=== PATIENT | male | born 1950 | race Caucasian/White ===

== ENCOUNTER → 2016-06-29 | Outpatient (CLI) | payer OTHER ==
[~2016-06-29] MED LIST: SIMV20TA2 PO
[2016-06-29 17:46] LABS: GLUCOSE,FASTING 83 mg/dl (70-99)
[2016-06-29 17:53] LABS: CHOLESTEROL 161 mg/dl (0-200); CHOLESTEROL/HDL RATIO 4.4; HDL CHOLESTEROL 37 mg/dl; LDL CHOLESTEROL CALCULATED 99 mg/dl; PROSTATE SPECIFIC ANTIGEN < 0.010 ng/ml (0.000-4.000); TRIGLYCERIDES 124 mg/dl (0-150); VERY LOW DENSITY LIPOPROT CALC 25 mg/dl
== END | disposition home or self-care (01) ==
LOC: C.LABPVFM 15:48
PROVIDERS: ATTEND Family Medicine
DX: E78.2 Mixed hyperlipidemia (principal); C61 Malignant neoplasm of prostate

== ENCOUNTER → 2017-11-08 | Outpatient (CLI) | payer OTHER ==
[2017-11-08 17:39] LABS: BLOOD UREA NITROGEN 14 mg/dl (7-18); CALCIUM 8.4 mg/dl (8.5-10.1); CARBON DIOXIDE 25 mmol/L (21-32); CHOLESTEROL 122 mg/dl (0-200); CREATININE 0.98 mg/dl (0.60-1.40); GLUCOSE 76 mg/dl (70-99); LDL CHOLESTEROL CALCULATED 66 mg/dl; POTASSIUM 3.9 mmol/L (3.5-5.1); SODIUM 137 mmol/L (136-145)
== END | disposition home or self-care (01) ==
LOC: C.LABPVFM 16:10
PROVIDERS: ATTEND Nurse Practitioner
DX: E78.2 Mixed hyperlipidemia (principal); C61 Malignant neoplasm of prostate

== ENCOUNTER 2024-05-29 11:13 | Inpatient (IN) ==
--- NOTE | 2024-05-29 11:22 | Emergency Department Note ---
Impression & Plan Pneumonia, Interstitial lung disease, Hypoxia, Hypomagnesemia, Influenza A ED Provider Note NAME: YASMANY GONZÁLES AGE: 73 SEX: M : 1950 ARRIVES VIA: Ambulance INFORMANT: Patient, EMS ED PROVIDER(S): Héctor Palma DO CHIEF COMPLAINT: Shortness of breath HPI: The patient is a 73-year-old male who presented to the emergency department for an evaluation of shortness of breath. The patient's been experiencing shortness of breath over the course of the last couple days. He has had a cough. He does have a history of underlying interstitial lung disease but also has a history of heart issues. The patient's had a low-grade fever. The patient did not take any Tylenol. The patient arrived via ambulance. He was noted to be hypoxic. He was placed on a nonrebreather mask. The patient normally wears 3 L of oxygen at home but today has titrated himself up to 7 L. ROS: See above HPI for pertinent positives & negatives. A total of 10 systems reviewed and were otherwise negative. PAST MEDICAL HISTORY: See Below PAST SURGICAL HISTORY: See Below FAMILY HISTORY: See Below SOCIAL HISTORY: See Below HOME MEDICATIONS: See Below ALLERGIES: See Below VITALS: See Below PHYSICAL EXAMINATION: GENERAL: The patient is awake and alert. He is mildly anxious. EYES: The conjunctivae are clear. The pupils are round and reactive. EARS, NOSE, MOUTH AND THROAT: The nose is without any evidence of any deformity. NECK: The neck is nontender and supple. RESPIRATORY: Tachypnea and conversational dyspnea was noted. Diminished breath sounds are noted throughout with faint rales in all lung suárez. CARDIOVASCULAR: Regular rate and rhythm was noted to auscultation. Systolic murmur suggested. GASTROINTESTINAL: The abdomen is soft. Abdomen is nontender. MUSCULOSKELETAL/EXTREMITIES: There is no evidence of gross deformity full range of motion is noted in the hips and shoulders. SKIN: There is no obvious evidence of any rash. There are no petechiae, pallor or cyanosis noted. NEUROLOGIC: Patient is awake alert and oriented x3 MEDICAL DECISION MAKING: The patient is a 73-year-old male who presented to the emergency department for an evaluation of difficulty breathing. The patient has a history of interstitial lung disease. He started getting worse over the course of the last 24 hours. The patient arrived at the emergency department with an increased oxygen requirement. He was found to have signs of pneumonia on chest x-ray. He was placed on escalating amounts of supplemental oxygen. Ultimately he was placed on BiPAP. He was not retaining CO2 and his oxygen saturations were followed. I discussed the patient's laboratory and radiographic studies with him. He was treated with IV antibiotics in emergency department. [facility] agreed to evaluate the patient in the emergency department for further management and disposition. Triage Nursing notes reviewed. Prior medical records reviewed Vital Signs: reviewed and remarkable for fever and tachypnea. The patient was also hypoxic. Differential diagnosis: Reactive airway disease, pneumonia, pneumothorax, COPD, CHF, infections, cardiac ischemia, pulmonary embolism, musculoskeletal, gastrointestinal, as well as other pathologies. ER treatment provided: See below Diagnostics interpreted by me: ECG: EKG was obtained in the emergency department. My interpretation is normal sinus rhythm at 84 bpm. There was no ectopy. There is no acute ST segment abnormalities noted. LVH was suggested by voltage criteria. Cardiac Monitoring: An order was placed for continuous cardiac monitoring. The monitor shows a rate of 87 bpm with sinus rhythm. Laboratory studies: As stated above and show below. Imaging studies: See below. Radiographic imaging was reviewed by myself Consultation(s): I discussed this case with Dr. Almanza who is on-call for the [facility]. ED COURSE: Procedures: none Critical Care: I have personally spent greater than 45 minutes of critical care time in the direct management of this patient. This includes bedside care, interpretation of diagnostic studies, and testing, discussion with consultants, patient, and family members, and other required patient management activities. This 45 minutes is in excess of all separately billable procedures. Past Med/Surg History Problem List (Updated 05/29/24 @ 18:18 by Héctor Palma DO) Influenza A (Acute) Acute on chronic hypoxic respiratory failure Influenza A Hypomagnesemia (Acute) Hypoxia (Acute) Pneumonia (Acute) Heart enlargement Weight loss, non-intentional Poor appetite Thrush, oral Muscle cramping Colon cancer screening Hyperlipidemia (Chronic) Interstitial lung disease (Chronic) Dry cough Numbness of toes Post-nasal drip Chronic cough GERD (gastroesophageal reflux disease) History of prostate cancer 2006 > just surgery Allergic rhinitis (Chronic) Reactive airway disease (Acute) uses one puff in am, but reports "I don't really need to" Medical History Kidney stones passed on own Hyperlipidemia Benign neoplasm of colon History of Lyme disease 2005 > resolved 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 History of cellulitis Asbestos exposure several yrs ago Hernia pt unaware GERD (gastroesophageal reflux disease) now off PPI Surgical History History of colonoscopy 2012 History of tooth extraction H/O prostatectomy 05/2006 Family History Grandmother Diabetes Brother Diabetes Hypertension Rectal cancer Heart disease Sister Diabetes Hypertension Cancer Father Myocardial infarction Heart disease Family/Other Lung disease Other No family history of adverse response to anesthesia No family history of bleeding disorder Denies family history of Ovarian cancer Prostate cancer Breast cancer Colorectal cancer Stroke Social History Smoking Status: Never smoker Cigarettes Per Day: only smoked once in awhile for a couple years; Second Hand Exposure: No; Do You Dip or Chew Tobacco: No; Hx Alcohol Use: No Hx Substance Use: No Preferred Language: Frisian Communication Ability: Effective Hearing Ability: Normal Bin Piler Required: No Beliefs That Will Affect Care: None marital status: Current Living Situation: Spouse current occupational status: retired current occupation: Sales How many Children do You have: 2 Other Information That Helps Us Care for You: No Feels Safe at Home: Yes Safety Concerns: Feels Safe At This Time Childhood Exposure to Second-Hand Smoke: No Diet: regular caffeine: Yes (coffee) Dental Care, Regularly: No Physical Activity Frequency: Daily Seatbelt Use: always Sunscreen Use: No Assistive Devices: Glasses and Oxygen - Continuous Allergies Allergies Allergy/AdvReac Type Severity Reaction Status Date / Time No Known Drug Allergies Allergy Verified 01/14/24 08:20 Home Meds Home Medications Medication Instructions Recorded Confirmed omega-3 fatty acids 1,000 mg 1,000 mg PO QAM 11/11/20 05/29/24 capsule (Fish Oil Concentrate) aspirin 81 mg tablet,delayed 81 mg PO QAM 01/29/22 05/29/24 release (Adult Low Dose Aspirin) cholecalciferol (vitamin D3) 50 50 mcg PO QAM 01/29/22 05/29/24 mcg (2,000 unit) capsule fexofenadine 180 mg tablet 180 mg PO QAM 08/21/22 05/29/24 ([facility]) Oxygen Home 07/13/23 01/14/24 fluticasone fur. 100 mcg-umeclid 1 inh inhalation UD 07/13/23 05/29/24 62.5 mcg-vilant 25 mcg inhalat.powder (Trelegy Ellipta) albuterol sulfate 0.63 mg/3 mL 0.63 mg inhalation Q6H PRN sob 01/14/24 05/29/24 solution for nebulization ipratropium bromide 0.02 % 2.5 ml inhalation Q6H PRN sob 01/14/24 05/29/24 solution for inhalation azelastine 137 mcg (0.1 %) nasal 1 spray intranasal DIRECTED 05/29/24 05/29/24 spray bosentan 62.5 mg tablet 62.5 mg PO BID 05/29/24 05/29/24 fluconazole 150 mg tablet 150 mg PO UD 05/29/24 05/29/24 pirfenidone 267 mg capsule 534 mg PO TID 05/29/24 05/29/24 Previous Rx's Medication Instructions Recorded pantoprazole 40 mg tablet,delayed 40 mg PO BID #180 tabs 07/13/23 release fluticasone propionate 50 1 spray intranasal BID #48 grams 08/17/23 mcg/actuation nasal spray,suspension albuterol sulfate 90 mcg/actuation 2 puff inhalation QID PRN 12/10/23 aerosol inhaler shortness of breath or wheezing or cough #3 Inhalers atorvastatin 40 mg tablet 40 mg PO QAM #90 tabs 04/20/24 Results & Data (ED) Vital Signs Vital Signs - 24 hr 05/29/24 11:20 05/29/24 11:20 05/29/24 11:20 Temperature Temperature Source Pulse Rate Pulse Rate [Apical] Pulse Rate from SpO2 Sensor Pulse Rhythm Pulse Strength Respiratory Rate Respiratory Effort / Characteristics Respiratory Pattern Blood Pressure 126/79 126/79 126/79 Blood Pressure Mean 88 88 88 Blood Pressure Position Pulse Oximetry Oxygen Delivery Method Oxygen Flow Rate Fraction of Inspired Oxygen Sepsis Recent Fever Within 48 Hours Sepsis New/Unexplained Change in Mental Status Sepsis Action Taken by Nursing Oxygen Flow Rate - Titration Pulse Oximetry Post Tiitration 05/29/24 11:20 05/29/24 11:20 05/29/24 11:20 Temperature Temperature Source Pulse Rate Pulse Rate [Apical] Pulse Rate from SpO2 Sensor Pulse Rhythm Pulse Strength Respiratory Rate Respiratory Effort / Characteristics Respiratory Pattern Blood Pressure 126/79 126/79 126/79 Blood Pressure Mean 88 88 88 Blood Pressure Position Pulse Oximetry Oxygen Delivery Method Oxygen Flow Rate Fraction of Inspired Oxygen Sepsis Recent Fever Within 48 Hours Sepsis New/Unexplained Change in Mental Status Sepsis Action Taken by Nursing Oxygen Flow Rate - Titration Pulse Oximetry Post Tiitration 05/29/24 11:20 05/29/24 11:20 05/29/24 11:22 Temperature 37.4 C Temperature Source Oral Pulse Rate 79 Pulse Rate [Apical] Pulse Rate from SpO2 Sensor Pulse Rhythm Regular Pulse Strength Normal Respiratory Rate 48 H Respiratory Effort / Characteristics Labored Respiratory Pattern Regular Tachypnea Blood Pressure 126/79 126/79 126/79 Blood Pressure Mean 88 88 94 Blood Pressure Position Sitting Pulse Oximetry 91 Oxygen Delivery Method [place] Oxygen Flow Rate 10 Fraction of Inspired Oxygen Sepsis Recent Fever Within 48 Hours No Sepsis New/Unexplained Change in Mental Status No Sepsis Action Taken by Nursing No Action Required Oxygen Flow Rate - Titration Pulse Oximetry Post Tiitration 05/29/24 11:28 05/29/24 11:40 05/29/24 11:45 Temperature Temperature Source Pulse Rate Pulse Rate [Apical] Pulse Rate from SpO2 Sensor Pulse Rhythm Pulse Strength Respiratory Rate Respiratory Effort / Characteristics Respiratory Pattern Blood Pressure Blood Pressure Mean Blood Pressure Position Pulse Oximetry 92 82 L 88 L Oxygen Delivery Method [place] Oxygen Flow Rate 11 10 12 Fraction of Inspired Oxygen Sepsis Recent Fever Within 48 Hours Sepsis New/Unexplained Change in Mental Status Sepsis Action Taken by Nursing Oxygen Flow Rate - Titration 12 15 Pulse Oximetry Post Tiitration 86 L 92 05/29/24 11:48 05/29/24 11:48 05/29/24 11:59 Temperature Temperature Source Pulse Rate 82 95 H Pulse Rate [Apical] Pulse Rate from SpO2 Sensor 82 Pulse Rhythm Pulse Strength Respiratory Rate 41 H Respiratory Effort / Characteristics Accessory Muscle Use Labored Short of Breath Tripoding Respiratory Pattern Rapid/Deep Rapid/Shallow Blood Pressure Blood Pressure Mean Blood Pressure Position Pulse Oximetry 95 Oxygen Delivery Method Non-rebreather Oxygen Flow Rate 15 Fraction of Inspired Oxygen Sepsis Recent Fever Within 48 Hours Sepsis New/Unexplained Change in Mental Status Sepsis Action Taken by Nursing Oxygen Flow Rate - Titration Pulse Oximetry Post Tiitration 05/29/24 12:01 05/29/24 12:01 05/29/24 12:01 Temperature Temperature Source Pulse Rate Pulse Rate [Apical] Pulse Rate from SpO2 Sensor Pulse Rhythm Pulse Strength Respiratory Rate Respiratory Effort / Characteristics Respiratory Pattern Blood Pressure 122/73 122/73 122/73 Blood Pressure Mean 96 96 96 Blood Pressure Position Pulse Oximetry Oxygen Delivery Method Oxygen Flow Rate Fraction of Inspired Oxygen Sepsis Recent Fever Within 48 Hours Sepsis New/Unexplained Change in Mental Status Sepsis Action Taken by Nursing Oxygen Flow Rate - Titration Pulse Oximetry Post Tiitration 05/29/24 12:01 05/29/24 12:06 05/29/24 12:06 Temperature Temperature Source Pulse Rate 80 80 Pulse Rate [Apical] Pulse Rate from SpO2 Sensor 79 Pulse Rhythm Pulse Strength Respiratory Rate 40 H 34 H Respiratory Effort / Characteristics Spontaneous Accessory Muscle Use Labored Respiratory Pattern Tachypnea Blood Pressure 122/73 Blood Pressure Mean 96 Blood Pressure Position Pulse Oximetry 97 96 Oxygen Delivery Method Oxygen Flow Rate Fraction of Inspired Oxygen 60 Sepsis Recent Fever Within 48 Hours Sepsis New/Unexplained Change in Mental Status Sepsis Action Taken by Nursing Oxygen Flow Rate - Titration Pulse Oximetry Post Tiitration 05/29/24 12:11 05/29/24 12:14 05/29/24 12:22 Temperature Temperature Source Pulse Rate 99 H Pulse Rate [Apical] 79 Pulse Rate from SpO2 Sensor Pulse Rhythm Pulse Strength Respiratory Rate 33 H 40 H Respiratory Effort / Characteristics Spontaneous Labored Short of Breath Respiratory Pattern Blood Pressure Blood Pressure Mean Blood Pressure Position Pulse Oximetry 97 99 Oxygen Delivery Method BiPAP BiPAP BiPAP Oxygen Flow Rate Fraction of Inspired Oxygen 60 Sepsis Recent Fever Within 48 Hours Sepsis New/Unexplained Change in Mental Status Sepsis Action Taken by Nursing Oxygen Flow Rate - Titration Pulse Oximetry Post Tiitration 96 05/29/24 12:30 05/29/24 12:30 05/29/24 13:06 Temperature Temperature Source Pulse Rate 87 88 99 H Pulse Rate [Apical] Pulse Rate from SpO2 Sensor 99 H Pulse Rhythm Pulse Strength Respiratory Rate 44 H 37 H 37 H Respiratory Effort / Characteristics Respiratory Pattern Blood Pressure 116/66 116/66 111/67 Blood Pressure Mean 75 75 81 Blood Pressure Position Pulse Oximetry 98 98 98 Oxygen Delivery Method BiPAP BiPAP Oxygen Flow Rate Fraction of Inspired Oxygen Sepsis Recent Fever Within 48 Hours Sepsis New/Unexplained Change in Mental Status Sepsis Action Taken by Nursing Oxygen Flow Rate - Titration Pulse Oximetry Post Tiitration 05/29/24 13:30 05/29/24 14:00 05/29/24 14:00 Temperature Temperature Source Pulse Rate 103 H 97 H 96 H Pulse Rate [Apical] Pulse Rate from SpO2 Sensor 102 H 97 H Pulse Rhythm Pulse Strength Respiratory Rate 28 H 41 H 38 H Respiratory Effort / Characteristics Respiratory Pattern Blood Pressure 106/67 102/67 102/67 Blood Pressure Mean 80 78 71 Blood Pressure Position Pulse Oximetry 96 93 97 Oxygen Delivery Method BiPAP BiPAP Oxygen Flow Rate Fraction of Inspired Oxygen Sepsis Recent Fever Within 48 Hours Sepsis New/Unexplained Change in Mental Status Sepsis Action Taken by Nursing Oxygen Flow Rate - Titration Pulse Oximetry Post Tiitration 05/29/24 14:27 Temperature Temperature Source Pulse Rate 94 H Pulse Rate [Apical] Pulse Rate from SpO2 Sensor 94 H Pulse Rhythm Pulse Strength Respiratory Rate 34 H Respiratory Effort / Characteristics Respiratory Pattern Blood Pressure 101/70 Blood Pressure Mean 80 Blood Pressure Position Pulse Oximetry 97 Oxygen Delivery Method BiPAP Oxygen Flow Rate Fraction of Inspired Oxygen Sepsis Recent Fever Within 48 Hours Sepsis New/Unexplained Change in Mental Status Sepsis Action Taken by Nursing Oxygen Flow Rate - Titration Pulse Oximetry Post Tiitration Home Medications Current Medication List: was personally reviewed by me Laboratory Data Attestation: I reviewed the patient's lab results. 05/29/24 11:30 05/29/24 11:30 Lab Results 05/29/24 05/29/24 05/29/24 Range/Units 11:30 11:34 14:25 WBC 7.96 (4.8-10.8) K/ul RBC 4.01 L (4.70-6.10) M/uL Hgb 11.9 L (14.0-18.0) g/dl Hct 36.5 L (42.0-52.0) % MCV 91.0 (80.0-100.0) fL MCH 29.7 (25.0-34.0) pg MCHC 32.6 (32.0-36.0) g/dL RDW Std Deviation 52.4 H (36.4-46.3) fL RDW Coeff of Matilde 15.8 H (11.5-14.5) % Plt Count 173 (130-400) K/uL MPV 10.6 (9.4-12.4) fL Immature Gran % (Auto) 0.5 % Neut % (Auto) 69.7 % Lymph % (Auto) 13.8 % [place] % (Auto) 11.8 % Eos % (Auto) 3.6 % Baso % (Auto) 0.6 % Neut # (Auto) 5.54 (1.40-6.50) K/uL Lymph # (Auto) 1.10 L (1.20-3.40) K/uL [place] # (Auto) 0.94 H (0.11-0.59) K/uL Eos # (Auto) 0.29 (0.00-0.50) K/uL Baso # (Auto) 0.05 (0.00-0.20) K/uL Immature Gran # (Auto) 0.04 (0.01-0.20) K/uL PT 12.1 H (9.0-12.0) Seconds INR 1.1 (0.9-1.1) APTT 29 (21-31) Seconds PTT Ratio 1.1 VBG pH 7.43 H 7.47 H (7.36-7.41) VBG pCO2 43 34 L (38-50) mmHg VBG pO2 27 91 mmHg VBG HCO3 29 25 mmol/L VBG O2 Saturation < 60.0 97.6 % VBG Base Excess 3.7 1.4 mEq/L Sodium 132 L (136-145) mmol/L Potassium 3.9 (3.5-5.1) mmol/L Chloride 100 (98-107) mmol/L Carbon Dioxide 28 (21-32) mmol/L Anion Gap 4 (3-11) BUN 14 (6-23) mg/dl Creatinine 0.77 (0.6-1.4) mg/dl Est Cr Clr Drug Dosing 91.2 ml/min eGFR 94.53 BUN/Creatinine Ratio 18.2 (10-20) Glucose 103 H (70-99(Fasting)) mg/dl Lactate 1.1 (0.4-2.0) mmol/L Calcium 9.0 (8.6-10.3) mg/dl Magnesium 1.6 L (1.7-2.4) mg/dl Total Bilirubin 0.4 (0.2-1.0) mg/dl Direct Bilirubin 0.1 (0-0.2) mg/dl AST 25 (13-39) U/L ALT 8 (7-52) U/L Alkaline Phosphatase 67 (34-104) U/L Troponin I High Sens 6.6 (0-20) pg/ml B-Natriuretic Peptide 70 (0-100) pg/ml Total Protein 8.3 (6.0-8.3) gm/dl Albumin 3.6 (3.4-5.0) gm/dl Procalcitonin < 0.02 (0-0.5) ng/ml Nasal Influ A H1 2008 PCR DETECTED A (NotDetected) Adenovirus (PCR) Not Detected (NotDetected) B. pertussis DNA (PCR) Not Detected (NotDetected) B.parapertussis DNA PCR Not Detected (NotDetected) C. pneumoniae DNA (PCR) Not Detected (NotDetected) Coronavirus OC43 (PCR) Not Detected (NotDetected) Coronavirus HKU1 (PCR) Not Detected (NotDetected) Coronavirus 229E (PCR) Not Detected (NotDetected) SARS-CoV-2 (PCR) Not Detected (NotDetected) Coronavirus NL63 (PCR) Not Detected (NotDetected) Human Metapneumovir PCR Not Detected (NotDetected) Influenza Type B (PCR) Not Detected (NotDetected) M. pneumoniae (PCR) Not Detected (NotDetected) Parainfluenza 1 (PCR) Not Detected (NotDetected) Parainfluenza 2 (PCR) Not Detected (NotDetected) Parainfluenza 3 (PCR) Not Detected (NotDetected) Parainfluenza 4 (PCR) Not Detected (NotDetected) RSV (PCR) Not Detected (NotDetected) Entero/Rhino (PCR) Not Detected (NotDetected) Administered Medications Azithromycin (Zithromax) 500 mg in 255 mls @ 127.5 mls/hr IV NOW STA Stop: 05/29/24 18:49 Last Admin: 05/29/24 17:30 Dose: 127.5 mls/hr Documented By: CB Cefepime HCl (Maxipime 2000mg) 2,000 mg in 20 mls @ 5 mls/min IV Q8H DYLLAN Stop: 06/03/24 17:29 Last Admin: 05/29/24 17:31 Dose: 5 mls/min Documented By: CB Miscellaneous (Order Awaiting Action ~ Pirfenidone) 1 each N/A QS DYLLAN Stop: 06/28/24 16:29 Last Admin: 05/29/24 17:30 Dose: Not Given Documented By: CB Miscellaneous (Order Awaiting Action ~ Bosentan) 1 each N/A QS DYLLAN Stop: 06/28/24 16:29 Last Admin: 05/29/24 17:30 Dose: Not Given Documented By: CB Discontinued Medications Albuterol (Albut/Ipratrop 3mg/0.5mg Neb 3 Ml Vial) 3 ml NEB NOW STA; Protocol Stop: 05/29/24 11:20 Last Admin: 05/29/24 11:25 Dose: 3 ml Documented By: QGV Albuterol (Albut/Ipratrop 3mg/0.5mg Neb 3 Ml Vial) 12 ml NEB ONE ONE; Protocol Stop: 05/29/24 11:52 Last Admin: 05/29/24 12:10 Dose: 12 ml Documented By: BARON Dexamethasone Sodium Phosphate (DexamethasonePf 10 Mg/Ml Vial) 10 mg IV NOW ONE Stop: 05/29/24 11:52 Last Admin: 05/29/24 11:57 Dose: 10 mg Documented By: CATALINO Piperacillin Sod/Tazobactam Sod (Zosyn) 4.5 gm in 100 mls @ 200 mls/hr IV NOW ONE; Protocol Stop: 05/29/24 12:20 Last Infusion: 05/29/24 12:30 Dose: Infused Documented By: Admin: 05/29/24 11:57 Dose: 200 mls/hr Documented By: CATALINO Magnesium Sulfate/Dextrose (Magnesium Sulfate / D5w) 1 gm in 100 mls @ 100 mls/hr IV NOW STA Stop: 05/29/24 13:45 Last Infusion: 05/29/24 14:10 Dose: Infused Documented By: Admin: 05/29/24 13:05 Dose: 100 mls/hr Documented By: CATALINO Vancomycin HCl 2,250 mg/ (Sodium Chloride) 545 mls @ 200 mls/hr IV NOW ONE Stop: 05/29/24 17:13 Last Admin: 05/29/24 16:04 Dose: 200 mls/hr Documented By: GLORIA Midazolam HCl (Midazolam Hcl 1 Mg/Ml 2ml Vial) 1 mg IM NOW STA Stop: 05/29/24 12:53 Last Admin: 05/29/24 12:58 Dose: 1 mg Documented By: CATALINO Oseltamivir Phosphate (Oseltamivir Phosphate 75 Mg Cap) 75 mg PO NOW STA Stop: 05/29/24 13:32 Last Admin: 05/29/24 15:20 Dose: Not Given Documented By: ES Imaging Data Attestation: I personally reviewed and interpreted this imaging study as follows: My Impression: 1 view chest x-ray was obtained in the emergency department. My interpretation is interstitial lung disease noted with left-sided infiltrate, final report below. Radiologist's Impression: Chest X-Ray 05/29/24 11:19 XR chest 1V portable CLINICAL HISTORY: Sepsis COMPARISON STUDY: 06/26/2022 FINDINGS: There is stable cardiomegaly without pulmonary vascular congestion. There is progressive diffuse interstitial pulmonary opacity. There is interval hazy and patchy opacity throughout the left lung. No pleural effusion or pneumothorax. IMPRESSION: 1. Findings suggestive of progressive interstitial lung disease. 2. Findings consistent with superimposed pneumonia at the left lung. ACT 112: Negative or not required by law. Electronically signed by: Deshaun Nix M.D. 05/29/2024 11:42 AM Discharge Plan Visit Data Chief Complaint: Shortness of Breath/Dyspnea ED Provider: Héctor Palma Discharge Problem: Pneumonia, Interstitial lung disease, Hypoxia, Hypomagnesemia, Influenza A Patient Disposition: Admitted As Inpatient Discharge Instructions Interventions: ED Discharge Assessment Last Done: 05/29/24 15:33
[2024-05-29] MEDS: ALBUT/IPRATROP 3MG/0.5MG NEB 3 ML VIAL NEB STA (11:25)
--- NOTE | 2024-05-29 11:44 | XRay Report ---
XR chest 1V portable CLINICAL HISTORY: Sepsis COMPARISON STUDY: 06/26/2022 FINDINGS: There is stable cardiomegaly without pulmonary vascular congestion. There is progressive di ffuse interstitial pulmonary opacity. There is interval hazy and patchy opacity throughout the left l spring. No pleural effusion or pneumothorax. IMPRESSION: 1. Findings suggestive of progressive interstitial lung disease. 2. Findings consistent with superimposed pneumonia at the left lung. ACT 112: Negative or not required by law. Electronically signed by: Deshaun Nix M.D. 05/29/2024 11:42 AM
[2024-05-29 11:47] LABS: Base Excess VBG 3.7 mEq/L; HCO3 VBG 29 mmol/L; Oxygen Saturation VBG < 60.0 %; PCO2 VBG 43 mmHg (38-50); PO2 VBG 27 mmHg; pH VBG 7.43 (7.36-7.41)
[2024-05-29] MEDS: dexAMETHasone**PF** 10 MG/ML VIAL IV ONE (11:57)
[2024-05-29] MEDS: PIPERACILLIN/TAZOBACTAM 4.5 GM/100 ML BAG IV ONE (11:57)
[2024-05-29] MEDS: ALBUT/IPRATROP 3MG/0.5MG NEB 3 ML VIAL NEB ONE (12:10)
[2024-05-29 12:20] LABS: Basophils # (auto) 0.05 K/uL (0.00-0.20); Basophils % (auto) 0.6 %; Eosinophils # (auto) 0.29 K/uL (0.00-0.50); Eosinophils % (auto) 3.6 %; Hematocrit (blood only) 36.5 % (42.0-52.0); Hemoglobin 11.9 g/dl (14.0-18.0); Immature Granulocytes # (auto) 0.04 K/uL (0.01-0.20); Immature Granulocytes % (auto) 0.5 %; Lymphocytes % (auto) 13.8 %; Mean Corpuscular Hemoglobin 29.7 pg (25.0-34.0); Mean Corpuscular Hgb Conc 32.6 g/dL (32.0-36.0); Mean Platelet Volume 10.6 fL (9.4-12.4); Monocytes # (auto) 0.94 K/uL (0.11-0.59); Monocytes % (auto) 11.8 %; Neutrophils # (auto) 5.54 K/uL (1.40-6.50); Neutrophils % (auto) 69.7 %; Platelet Count 173 K/uL (130-400); RDW Coefficient of Variation 15.8 % (11.5-14.5); RDW Standard Deviation 52.4 fL (36.4-46.3); Red Blood Count 4.01 M/uL (4.70-6.10); White Blood Count 7.96 K/ul (4.8-10.8)
[2024-05-29 12:33] LABS: Albumin Level 3.6 gm/dl (3.4-5.0); BUN Creatinine Ratio 18.2 (10-20); Bilirubin Direct 0.1 mg/dl (0-0.2); Bilirubin,Total 0.4 mg/dl (0.2-1.0); Creatinine Clr Calc Pharmacy 91.2 ml/min; INR 1.1 (0.9-1.1); Magnesium 1.6 mg/dl (1.7-2.4); Partial Thromboplastin Ratio 1.1; Partial Thromboplastin Time 29 Seconds (21-31); Potassium 3.9 mmol/L (3.5-5.1); Prothrombin Time 12.1 Seconds (9.0-12.0); Total Protein 8.3 gm/dl (6.0-8.3)
[2024-05-29 12:39] LABS: Troponin I High Sensitivity 6.6 pg/ml (0-20)
[2024-05-29 12:44] LABS: Adenovirus PCR Not Detected (NotDetected); Bordetella parapertussis PCR Not Detected (NotDetected); Bordetella pertussis PCR Not Detected (NotDetected); Chlamydia pneumoniae PCR Not Detected (NotDetected); Coronavirus 229E PCR Not Detected (NotDetected); Coronavirus CoV-2 (COVID19)PCR Not Detected (NotDetected); Coronavirus HKU1 PCR Not Detected (NotDetected); Coronavirus NL63 PCR Not Detected (NotDetected); Coronavirus OC43PCR Not Detected (NotDetected); Human Metapneumovirus PCR Not Detected (NotDetected); Influenza A (H1 2009) PCR DETECTED (NotDetected); Influenza B PCR Not Detected (NotDetected); Mycoplasma pneumoniae PCR Not Detected (NotDetected); Parainfluenza Virus 1 PCR Not Detected (NotDetected); Parainfluenza Virus 2 PCR Not Detected (NotDetected); Parainfluenza Virus 3 PCR Not Detected (NotDetected); Parainfluenza Virus 4 PCR Not Detected (NotDetected); Respiratory Syncytial VirusPCR Not Detected (NotDetected); Rhinovirus/Enterovirus PCR Not Detected (NotDetected)
[2024-05-29] MEDS: MIDAZOLAM HCL 1 MG/ML 2ML VIAL IM STA (12:58)
[2024-05-29] MEDS: MAGNESIUM SULFATE / D5W 1 GM/100 ML BAG IV STA (13:05)
--- NOTE | 2024-05-29 13:22 | History & Physical Report ---
Date of Service May 29, 2024 Assessment & Plan (1) Influenza A: Plan: Acute on chronic hypoxic respiratory failure, multifactorial VBG 7./. Tachypneic. Hypoxic Requiring BiPAP Initially reported as improving, on reassessment deterioration following a coughing spell and increased tachypnea and work of breathing. Admission order deferred pending repeat VBG and stability for NIV versus need for intubation -Admitted to the ICU for monitoring due to worsened respiration VBG trended Influenza A, suspected left lower lobe superimposed pneumonia No leukocytosis, procalcitonin normal. Flu a positive Lactate normal, normotensive, he is not tachycardic Chest x-ray with evidence of superimposed left lung pneumonia, No prior sputum cultures available Blood cultures pending Sputum culture ordered Continue Zosyn Dexamethasone 10 mg IV x 1 given, continue 6 mg daily Nebulizers as needed NIV as needed ILD Severe pulmonary hypertension and ILD on 3 L oxygen at bedtime 6 L with activity prior to admission Continue Bostentan/pirfenidone Pulmonary consulted Last ECHO EF 60-65%, no regional wall motion abnormalities. RVSP 60. BMP 70, no evidence of CHF Flutter valve, incentive spirometry when not on PPV Continue home inhaler/formulary equivalent Albuterol as needed DVT prophylaxis: Lovenox Disposition: ICU CODE STATUS: Conditional code. DNR in the event of a complete cardiopulmonary arrest, but does want intubation/mechanical ventilation for potentially reversible causes if indicated. Listed as conditional code Diet: Heart healthy, unable to eat at time of your assessment until breathing stabilizes and is able to be off BiPAP (2) Pneumonia: (3) GERD (gastroesophageal reflux disease): (4) History of prostate cancer: (5) Reactive airway disease: History of Present Illness Primary Care Provider: KIEL Munoz Juanjo Turner is a 73-year-old male with past medical history of GERD, reactive airway disease, hyperlipidemia, ILD who presents to the ER with acute on chronic shortness of breath. Has had a mild fever and increase in his home oxygen from 3 to 7 L. On arrival is found to be flu positive. Is recommended for admission for acute on chronic respiratory failure due to flu and ILD. 1 day increased dyspnea, cough, shotness of breath, feverish, tired. No sputum change. DId not take medicaitons today. Did bring his antifibrotic's with him which were taken by EMS for verification. He reports that he is felt very short of breath in the last 12 to 24 hours, does feel improved on the BiPAP. No chest pain chest pressure at any point Denies leg swelling No nausea vomiting Feels tremulous and hot with sweats Medical History: Reviewed Medications: Reviewed Surgical History: Reviewed Family history: Reviewed Allergies: Reviewed Social History: No tobacco/alcohol use Code Status: DNR. Would be okay with temporary intubation/ventilation. Listed as conditional code Allergies Allergy/AdvReac Type Severity Reaction Status Date / Time No Known Drug Allergies Allergy Verified 01/14/24 08:20 Home Medications Medication Instructions Recorded Confirmed Type omega-3 fatty acids 1,000 mg 1,000 mg PO QAM 11/11/20 05/29/24 History capsule (Fish Oil Concentrate) aspirin 81 mg tablet,delayed 81 mg PO QAM 01/29/22 05/29/24 History release (Adult Low Dose Aspirin) cholecalciferol (vitamin D3) 50 50 mcg PO QAM 01/29/22 05/29/24 History mcg (2,000 unit) capsule fexofenadine 180 mg tablet 180 mg PO QAM 08/21/22 05/29/24 History ([facility]) Oxygen Home 07/13/23 01/14/24 History fluticasone fur. 100 mcg-umeclid 1 inh inhalation UD 07/13/23 05/29/24 History 62.5 mcg-vilant 25 mcg inhalat.powder (Trelegy Ellipta) pantoprazole 40 mg tablet,delayed 40 mg PO BID #180 tabs 07/13/23 05/29/24 Rx release fluticasone propionate 50 1 spray intranasal BID #48 grams 08/17/23 05/29/24 Rx mcg/actuation nasal spray,suspension albuterol sulfate 90 mcg/actuation 2 puff inhalation QID PRN 12/10/23 05/29/24 Rx aerosol inhaler shortness of breath or wheezing or cough #3 Inhalers albuterol sulfate 0.63 mg/3 mL 0.63 mg inhalation Q6H PRN sob 01/14/24 05/29/24 History solution for nebulization ipratropium bromide 0.02 % 2.5 ml inhalation Q6H PRN sob 01/14/24 05/29/24 History solution for inhalation atorvastatin 40 mg tablet 40 mg PO QAM #90 tabs 04/20/24 05/29/24 Rx azelastine 137 mcg (0.1 %) nasal 1 spray intranasal DIRECTED 05/29/24 05/29/24 History spray bosentan 62.5 mg tablet 62.5 mg PO BID 05/29/24 05/29/24 History fluconazole 150 mg tablet 150 mg PO UD 05/29/24 05/29/24 History pirfenidone 267 mg capsule 534 mg PO TID 05/29/24 05/29/24 History Past Med/Surg History Problem List (Updated 05/29/24 @ 18:18 by Héctor Palma DO) Influenza A (Acute) Acute on chronic hypoxic respiratory failure Influenza A Hypomagnesemia (Acute) Hypoxia (Acute) Pneumonia (Acute) Heart enlargement Weight loss, non-intentional Poor appetite Thrush, oral Muscle cramping Colon cancer screening Hyperlipidemia (Chronic) Interstitial lung disease (Chronic) Dry cough Numbness of toes Post-nasal drip Chronic cough GERD (gastroesophageal reflux disease) History of prostate cancer 2006 > just surgery Allergic rhinitis (Chronic) Reactive airway disease (Acute) uses one puff in am, but reports "I don't really need to" Medical History Kidney stones passed on own Hyperlipidemia Benign neoplasm of colon History of Lyme disease 2005 > resolved 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 History of cellulitis Asbestos exposure several yrs ago Hernia pt unaware GERD (gastroesophageal reflux disease) now off PPI Surgical History History of colonoscopy 2012 History of tooth extraction H/O prostatectomy 05/2006 Family History Grandmother Diabetes Brother Diabetes Hypertension Rectal cancer Heart disease Sister Diabetes Hypertension Cancer Father Myocardial infarction Heart disease Family/Other Lung disease Other No family history of adverse response to anesthesia No family history of bleeding disorder Denies family history of Ovarian cancer Prostate cancer Breast cancer Colorectal cancer Stroke Social History Smoking Status: Never smoker Cigarettes Per Day: only smoked once in awhile for a couple years; Second Hand Exposure: No; Do You Dip or Chew Tobacco: No; Hx Alcohol Use: No Hx Substance Use: No Preferred Language: [place] Zealander Communication Ability: Effective Hearing Ability: Normal Neonatal Social Worker Required: No Beliefs That Will Affect Care: None marital status: Current Living Situation: Spouse current occupational status: retired current occupation: Sales How many Children do You have: 2 Other Information That Helps Us Care for You: No Feels Safe at Home: Yes Safety Concerns: Feels Safe At This Time Childhood Exposure to Second-Hand Smoke: No Diet: regular caffeine: Yes (coffee) Dental Care, Regularly: No Physical Activity Frequency: Daily Seatbelt Use: always Sunscreen Use: No Assistive Devices: Glasses and Oxygen - Continuous Physical Exam Physical Exam: General: A&Ox3. Cooperative. On BiPAP, appears fatigued with increased work of breathing HEENT: Atraumatic, normocephalic. Vision and hearing grossly intact Pulm: Tachypneic. Left sided diffuse crackles. Right side diminished but grossly clear. + Increased work of breathing Cardiac: Tachycardic, no murmurs rubs or gallops. Radial pulses intact and symmetrical. Abdominal: Nontender, nondistended, soft. BS present. Extremities: Warm and dry Results & Data Results & Data Vital Signs (Past 12 Hours) Vital Signs Temp Pulse Pulse Resp BP Pulse Ox O2 Del Method 05/29/24 12:30 87 44 H 116/66 98 BiPAP 05/29/24 12:22 BiPAP 05/29/24 12:14 99 H 40 H 99 BiPAP 05/29/24 12:11 79 33 H 97 BiPAP 05/29/24 12:06 80 34 H 96 05/29/24 12:06 80 40 H 97 05/29/24 12:01 122/73 05/29/24 12:01 122/73 05/29/24 12:01 122/73 05/29/24 12:01 122/73 05/29/24 11:59 95 H 05/29/24 11:48 82 41 H 95 05/29/24 11:48 Non-rebreather 05/29/24 11:45 88 L Oxymask 05/29/24 11:40 82 L Oxymask 05/29/24 11:28 92 Oxymask 05/29/24 11:22 37.4 C 79 48 H 126/79 91 Oxymask 05/29/24 11:20 126/79 05/29/24 11:20 126/79 05/29/24 11:20 126/79 05/29/24 11:20 126/79 05/29/24 11:20 126/79 05/29/24 11:20 126/79 05/29/24 11:20 126/79 05/29/24 11:20 126/79 O2 Flow Rate FiO2 05/29/24 12:30 05/29/24 12:22 05/29/24 12:14 05/29/24 12:11 60 05/29/24 12:06 05/29/24 12:06 60 05/29/24 12:01 05/29/24 12:01 05/29/24 12:01 05/29/24 12:01 05/29/24 11:59 05/29/24 11:48 05/29/24 11:48 15 05/29/24 11:45 12 05/29/24 11:40 10 05/29/24 11:28 11 05/29/24 11:22 10 05/29/24 11:20 05/29/24 11:20 05/29/24 11:20 05/29/24 11:20 05/29/24 11:20 05/29/24 11:20 05/29/24 11:20 05/29/24 11:20 PG Care Time/CCT Total # of Minutes Spent Total Time Spent with Patient: Total time spent is greater than 50% in coordination of care (as documented) at patient's floor/unit and/or counseling patient: Coding Level of Care Code 41851 INT INP/OBS CARE MIN Diagnoses Influenza A J10.1 Pneumonia J18.9 Gastroesophageal reflux disease without esophagitis K21.9 Esophagitis presence: without esophagitis History of prostate cancer Z85.46 Reactive airway disease J45.909 (3) GERD (gastroesophageal reflux disease) Esophagitis presence: without esophagitis Qualified Code(s): K21.9 - Gastro- esophageal reflux disease without esophagitis
[2024-05-29] MEDS ORDERED: VANCOMYCIN CONSULT ACTIVE PRN (14:00)
[2024-05-29 14:33] LABS: Base Excess VBG 1.4 mEq/L; HCO3 VBG 25 mmol/L; Oxygen Saturation VBG 97.6 %; PCO2 VBG 34 mmHg (38-50); PO2 VBG 91 mmHg; pH VBG 7.47 (7.36-7.41)
--- NOTE | 2024-05-29 14:52 | Electrocardiogram Report ---
Test Reason : Blood Pressure : */* mmHG Vent. Rate : 84 BPM Atrial Rate : 84 BPM P-R Int : 158 ms QRS Dur : 106 ms QT Int : 364 ms P-R-T Axes : 7 -44 71 degrees QTcB Int : 430 ms Normal sinus rhythm Left axis deviation Left ventricular hypertrophy with repolarization abnormality Abnormal ECG When compared with ECG of 19-Sep-2014 12:00, QRS axis Shifted left Confirmed by Sancho Barbosa ([id number]) on 05/29/2024 2:52:34 PM Referred By: Confirmed By: Sancho Barbosa
--- NOTE | 2024-05-29 15:06 | Pulmonary Consultation ---
Date of Consultation May 29, 2024 Assessment & Plan (1) Influenza A: (2) Acute on chronic hypoxic respiratory failure: (3) Multifocal pneumonia: (4) Pulmonary hypertension: (5) Interstitial lung disease: Plan -- Acute on chronic hypoxic respiratory failure Likely secondary to influenza A pneumonia on top of underlying severe ILD Respiratory BioFire was positive for influenza A, negative for everything else Procalcitonin negative --Chronic hypoxic respiratory failure On 3-7 L of oxygen at home On Breo 100 at home --Pulmonary hypertension On pirfenidone 534 mg 3 times daily as well as bosentan Following up with [facility] pulmonary Plan: Given the high respiratory rate and impending ventilatory failure I think it is best for the patient to be in the ICU I discussed with the patient as well as patient's family members were at bedside regarding the need of intubation in the near future. He is agreeable to it He would not want a tracheostomy in future though. Would recommend oseltamivir to be given for 5 days. I did confirm with the patient if he is anxious because he has BiPAP and he said that is not anxiety. High flow could be tried to see if that decreases his respiratory rate but I would like it to be done in the unit where he is monitored more closely. Follow-up nasal MRSA on sputum cultures If negative then okay to discontinue vancomycin Would recommend atypical coverage with either doxycycline or azithromycin. QTc 430 Case was discussed with primary team, brief signout was also given to Dr. Garcia I have personally spent 41 minutes of critical care time in the direct management of this patient. This is a life/limb threatening event. This includes time spent evaluating patient, direct bedside care, chart review, placing orders, interpretation of diagnostic studies, discussion with consultants, patient, and family members, as well as other required patient management activities. This time is exclusive of all separately billable procedures, and teaching time and separate from and in addition to any other critical care service time. Please note the above document was generated using voice recognition software. It may contain grammatical, syntax or spelling errors. History of Present Illness History of Present Illness 73-year-old male coming to the hospital for shortness of breath Past medical history: ILD on pirfenidone, on 3-7 L oxygen at rest, dyslipidemia, GERD Pulmonary consulted for the same At the time of examination patient's family was in the room. He was on BiPAP 5/5, 60%, saturation was 97%. He was in respiratory distress He was breathing in the mid to high 30s. He was not not able to speak in full sentences. He stated that he has been having getting worsening shortness of breath in the last couple of days. Positive subjective fever and chills. No dysuria, no diarrhea No unusual headache or blurry vision He is compliant with his medications Social history: Technically lifetime non-smoker Allergies Allergy/AdvReac Type Severity Reaction Status Date / Time No Known Drug Allergies Allergy Verified 01/14/24 08:20 Home Medications Medication Instructions Recorded Confirmed Type omega-3 fatty acids 1,000 mg 1,000 mg PO QAM 11/11/20 05/29/24 History capsule (Fish Oil Concentrate) aspirin 81 mg tablet,delayed 81 mg PO QAM 01/29/22 05/29/24 History release (Adult Low Dose Aspirin) cholecalciferol (vitamin D3) 50 50 mcg PO QAM 01/29/22 05/29/24 History mcg (2,000 unit) capsule fexofenadine 180 mg tablet 180 mg PO QAM 08/21/22 05/29/24 History ([facility]) Oxygen Home 07/13/23 01/14/24 History fluticasone fur. 100 mcg-umeclid 1 inh inhalation UD 07/13/23 05/29/24 History 62.5 mcg-vilant 25 mcg inhalat.powder (Trelegy Ellipta) pantoprazole 40 mg tablet,delayed 40 mg PO BID #180 tabs 07/13/23 05/29/24 Rx release fluticasone propionate 50 1 spray intranasal BID #48 grams 08/17/23 05/29/24 Rx mcg/actuation nasal spray,suspension albuterol sulfate 90 mcg/actuation 2 puff inhalation QID PRN 12/10/23 05/29/24 Rx aerosol inhaler shortness of breath or wheezing or cough #3 Inhalers albuterol sulfate 0.63 mg/3 mL 0.63 mg inhalation Q6H PRN sob 01/14/24 05/29/24 History solution for nebulization ipratropium bromide 0.02 % 2.5 ml inhalation Q6H PRN sob 01/14/24 05/29/24 History solution for inhalation atorvastatin 40 mg tablet 40 mg PO QAM #90 tabs 04/20/24 05/29/24 Rx azelastine 137 mcg (0.1 %) nasal 1 spray intranasal DIRECTED 05/29/24 05/29/24 History spray bosentan 62.5 mg tablet 62.5 mg PO BID 05/29/24 05/29/24 History fluconazole 150 mg tablet 150 mg PO UD 05/29/24 05/29/24 History pirfenidone 267 mg capsule 534 mg PO TID 05/29/24 05/29/24 History Patient History Medical History Kidney stones passed on own Hyperlipidemia Benign neoplasm of colon History of Lyme disease 2005 > resolved 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 History of cellulitis Asbestos exposure several yrs ago Hernia pt unaware GERD (gastroesophageal reflux disease) now off PPI Surgical History History of colonoscopy 2012 History of tooth extraction H/O prostatectomy 05/2006 Family History Grandmother Diabetes Brother Diabetes Hypertension Rectal cancer Heart disease Sister Diabetes Hypertension Cancer Father Myocardial infarction Heart disease Family/Other Lung disease Other No family history of adverse response to anesthesia No family history of bleeding disorder Denies family history of Ovarian cancer Prostate cancer Breast cancer Colorectal cancer Stroke Social History Smoking Status: Never smoker Cigarettes Per Day: only smoked once in awhile for a couple years; Second Hand Exposure: No; Do You Dip or Chew Tobacco: No; Hx Alcohol Use: No Hx Substance Use: No Preferred Language: Belarusian Communication Ability: Effective Hearing Ability: Normal Patternator Required: No Beliefs That Will Affect Care: None marital status: Current Living Situation: Spouse current occupational status: retired current occupation: Sales How many Children do You have: 2 Other Information That Helps Us Care for You: No Feels Safe at Home: Yes Safety Concerns: Feels Safe At This Time Childhood Exposure to Second-Hand Smoke: No Diet: regular caffeine: Yes (coffee) Dental Care, Regularly: No Physical Activity Frequency: Daily Seatbelt Use: always Sunscreen Use: No Assistive Devices: Glasses and Oxygen - Continuous Review of Systems 2 Review of Systems: All systems reviewed & are unremarkable except as noted in HPI & below Physical Exam 2 Physical Exam: Constitutional: In respiratory distress HEENT: EOMI, PERRLA Respiratory system: Decreased air entry bilaterally, no wheeze, no rhonchi, positive Velcro-like crackles appreciated bilaterally CVS: S1-S2 positive, positive 2 out of 6 systolic murmur appreciated best at aorta Abdomen: Soft, nontender, nondistended, positive bowel sounds x4 Extremities: +2 pulses bilaterally radialis/ dorsalis pedis, no cyanosis, minimal pitting edema bilateral lower extremity Neuro: Awake alert oriented x3 Psych: Normal mood and affect G/U: No Orr Skin: no rashes, warm and dry Lymphatic: no cervical or axillary lymphadenopathy Results & Data Results & Data Vital Signs (Past 12 Hours) Vital Signs Temp Pulse Pulse Resp BP Pulse Ox O2 Del Method 05/29/24 14:00 97 H 41 H 102/67 93 BiPAP 05/29/24 13:30 103 H 28 H 106/67 96 BiPAP 05/29/24 13:06 99 H 37 H 111/67 98 05/29/24 12:30 88 37 H 116/66 98 BiPAP 05/29/24 12:30 87 44 H 116/66 98 BiPAP 05/29/24 12:22 BiPAP 05/29/24 12:14 99 H 40 H 99 BiPAP 05/29/24 12:11 79 33 H 97 BiPAP 05/29/24 12:06 80 34 H 96 05/29/24 12:06 80 40 H 97 05/29/24 12:01 122/73 05/29/24 12:01 122/73 05/29/24 12:01 122/73 05/29/24 12:01 122/73 05/29/24 11:59 95 H 05/29/24 11:48 82 41 H 95 05/29/24 11:48 Non-rebreather 05/29/24 11:45 88 L Oxymask 05/29/24 11:40 82 L Oxymask 05/29/24 11:28 92 Oxymask 05/29/24 11:22 37.4 C 79 48 H 126/79 91 Oxymask 05/29/24 11:20 126/79 05/29/24 11:20 126/79 05/29/24 11:20 126/79 05/29/24 11:20 126/79 05/29/24 11:20 126/79 05/29/24 11:20 126/79 05/29/24 11:20 126/79 05/29/24 11:20 126/79 O2 Flow Rate FiO2 05/29/24 14:00 05/29/24 13:30 05/29/24 13:06 05/29/24 12:30 05/29/24 12:30 05/29/24 12:22 05/29/24 12:14 05/29/24 12:11 60 05/29/24 12:06 05/29/24 12:06 60 05/29/24 12:01 05/29/24 12:01 05/29/24 12:01 05/29/24 12:01 05/29/24 11:59 05/29/24 11:48 05/29/24 11:48 15 05/29/24 11:45 12 05/29/24 11:40 10 05/29/24 11:28 11 05/29/24 11:22 10 05/29/24 11:20 05/29/24 11:20 05/29/24 11:20 05/29/24 11:20 05/29/24 11:20 05/29/24 11:20 05/29/24 11:20 05/29/24 11:20 Laboratory Results 05/29/24 11:30 05/29/24 11:30 PG Care Time/CCT Total # of Minutes Spent Total Time Spent with Patient: Total time spent is greater than 50% in coordination of care (as documented) at patient's floor/unit and/or counseling patient: Coding Level of Care Code 55745 CRITICAL CARE 1ST 30-74M Diagnoses Influenza A J10.1 Acute on chronic hypoxic respiratory failure J96.21 Multifocal pneumonia J18.9 Pulmonary hypertension I27.20 Interstitial lung disease J84.9
[2024-05-29] MEDS: OSELTAMIVIR PHOSPHATE 75 MG CAP PO STA (15:20)
[2024-05-29 15:42] LABS: Base Excess VBG 1.7 mEq/L; HCO3 VBG 26 mmol/L; Oxygen Saturation VBG 84.1 %; PCO2 VBG 38 mmHg (38-50); PO2 VBG 49 mmHg; pH VBG 7.44 (7.36-7.41)
--- NOTE | 2024-05-29 15:56 | Critical Care Consultation ---
Date of Consultation May 29, 2024 Assessment & Plan (1) Acute on chronic hypoxic respiratory failure: Reason Critically Ill: 73-year-old male with ILD who presents with worsening acute on chronic hypoxic respiratory failure PLAN: Neuro: Anxiety -Consider morphine versus anxiolytics versus dexmedetomidine Resp: Acute on chronic hypoxic respiratory failure -Continue NIV and wean as tolerated -Consider high flow nasal cannula to allow for oral intake -Decadron 6 mg IV daily Pulmonary hypertension -On pirfenidone 534 mg 3 times daily as well as bosentan Fluids/Renal: Mild hyponatremia, mild hypomagnesemia -Replete magnesium ID: BioFire reviewed, MRSA nasal swab pending, blood cultures obtained -Vancomycin, azithromycin, cefepime -Tamiflu 75 mg twice daily GI/Nutrition: N.p.o. at this time -Consider high flow nasal cannula to allow for enteral nutrition Heme: Anemia NOS DVT prophylaxis: Lovenox 40 mg subcu Endocrine: ICU hyperglycemia protocol Vascular access: Peripheral IVs Code Status: DO NOT RESUSCITATE in event of cardiac arrest, okay with intubation for respiratory insufficiency, does not desire tracheostomy for chronic respiratory failure Disposition: ICU (2) Influenza A: (3) Hypoxia: (4) Interstitial lung disease: Supervising Physician Co-Signing Physician Notes I have personally spent 55 minutes of critical care time in the direct management of this patient. This is a life/limb threatening event. This includes time spent evaluating patient, direct bedside care, chart review, placing orders, interpretation of diagnostic studies, discussion with consultants, patient, and/or family members regarding treatment decisions, as well as other required patient management activities. This time is exclusive of all separately billable procedures, and teaching time and separate from and in addition to any other critical care service time. History of Present Illness Reason for Consultation: Acute on chronic hypoxic respiratory failure, impending respiratory failure History of Present Illness Patient is a 73-year-old male who has a significant past medical history of interstitial lung disease diagnosed several years ago last several months he was recently started on oxygen therapy he presented for dyspnea and increased work of breathing. He was found to be influenza A positive. In the emergency department he was started on noninvasive mechanical ventilation and seen by pulmonary. He is admitted to the ICU for potential of respiratory failure requiring intubation. Discussed with the patient and at the bedside they report clinically he is improved with the initiation of NIV, goals of care were discussed he is a DO NOT RESUSCITATE in event of cardiac arrest he is willing to undergo intubation and mechanical ventilation, he would not want to undergo tracheostomy. We discussed what terminal extubation would look like an approximate timeline. Both he and his are in agreement of pursuing that approach at the present time. Patient was anxious in the emergency department the anxiety is significantly improved over the course of his hospitalization so far. Allergies Allergy/AdvReac Type Severity Reaction Status Date / Time No Known Drug Allergies Allergy Verified 01/14/24 08:20 Home Medications Medication Instructions Recorded Confirmed Type omega-3 fatty acids 1,000 mg 1,000 mg PO QAM 11/11/20 05/29/24 History capsule (Fish Oil Concentrate) aspirin 81 mg tablet,delayed 81 mg PO QAM 01/29/22 05/29/24 History release (Adult Low Dose Aspirin) cholecalciferol (vitamin D3) 50 50 mcg PO QAM 01/29/22 05/29/24 History mcg (2,000 unit) capsule fexofenadine 180 mg tablet 180 mg PO QAM 08/21/22 05/29/24 History ([facility] Allergy) Oxygen Home 07/13/23 01/14/24 History fluticasone fur. 100 mcg-umeclid 1 inh inhalation UD 07/13/23 05/29/24 History 62.5 mcg-vilant 25 mcg inhalat.powder (Trelegy Ellipta) pantoprazole 40 mg tablet,delayed 40 mg PO BID #180 tabs 07/13/23 05/29/24 Rx release fluticasone propionate 50 1 spray intranasal BID #48 grams 08/17/23 05/29/24 Rx mcg/actuation nasal spray,suspension albuterol sulfate 90 mcg/actuation 2 puff inhalation QID PRN 12/10/23 05/29/24 Rx aerosol inhaler shortness of breath or wheezing or cough #3 Inhalers albuterol sulfate 0.63 mg/3 mL 0.63 mg inhalation Q6H PRN sob 01/14/24 05/29/24 History solution for nebulization ipratropium bromide 0.02 % 2.5 ml inhalation Q6H PRN sob 01/14/24 05/29/24 History solution for inhalation atorvastatin 40 mg tablet 40 mg PO QAM #90 tabs 04/20/24 05/29/24 Rx azelastine 137 mcg (0.1 %) nasal 1 spray intranasal DIRECTED 05/29/24 05/29/24 History spray bosentan 62.5 mg tablet 62.5 mg PO BID 05/29/24 05/29/24 History fluconazole 150 mg tablet 150 mg PO UD 05/29/24 05/29/24 History pirfenidone 267 mg capsule 534 mg PO TID 05/29/24 05/29/24 History Patient History Medical History Kidney stones passed on own Hyperlipidemia Benign neoplasm of colon History of Lyme disease 2005 > resolved 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 History of cellulitis Asbestos exposure several yrs ago Hernia pt unaware GERD (gastroesophageal reflux disease) now off PPI Surgical History History of colonoscopy 2012 History of tooth extraction H/O prostatectomy 05/2006 Family History Grandmother Diabetes Brother Diabetes Hypertension Rectal cancer Heart disease Sister Diabetes Hypertension Cancer Father Myocardial infarction Heart disease Family/Other Lung disease Other No family history of adverse response to anesthesia No family history of bleeding disorder Denies family history of Ovarian cancer Prostate cancer Breast cancer Colorectal cancer Stroke Social History Smoking Status: Never smoker Cigarettes Per Day: only smoked once in awhile for a couple years; Second Hand Exposure: No; Do You Dip or Chew Tobacco: No; Hx Alcohol Use: No Hx Substance Use: No Preferred Language: Luxembourger Communication Ability: Effective Hearing Ability: Normal 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 nontoxic. Skin: Warm, dry, Head: Atraumatic Ears, nose, mouth and throat: airway patent: BiPAP mask in place Cardiovascular: Normal peripheral perfusion Respiratory: Moderate tachypnea high 20s low 30s, minimal accessory muscle use, able to speak in 7-10 word sentences, does not drop during conversation with supplemental oxygen at 45% Gastrointestinal: Non distended Musculoskeletal: No deformity Results & Data Results & Data Vital Signs (Past 12 Hours) Vital Signs Temp Pulse Pulse Resp BP Pulse Ox O2 Del Method 05/29/24 15:33 96 H 20 108/68 94 BiPAP 05/29/24 15:31 98 H 33 H 94 05/29/24 14:27 94 H 34 H 101/70 97 BiPAP 05/29/24 14:00 96 H 38 H 102/67 97 05/29/24 14:00 97 H 41 H 102/67 93 BiPAP 05/29/24 13:30 103 H 28 H 106/67 96 BiPAP 05/29/24 13:06 99 H 37 H 111/67 98 05/29/24 12:30 88 37 H 116/66 98 BiPAP 05/29/24 12:30 87 44 H 116/66 98 BiPAP 05/29/24 12:22 BiPAP 05/29/24 12:14 99 H 40 H 99 BiPAP 05/29/24 12:11 79 33 H 97 BiPAP 05/29/24 12:06 80 34 H 96 05/29/24 12:06 80 40 H 97 05/29/24 12:01 122/73 05/29/24 12:01 122/73 05/29/24 12:01 122/73 05/29/24 12:01 122/73 05/29/24 11:59 95 H 05/29/24 11:48 82 41 H 95 05/29/24 11:48 Non-rebreather 05/29/24 11:45 88 L Oxymask 05/29/24 11:40 82 L Oxymask 05/29/24 11:28 92 Oxymask 05/29/24 11:22 37.4 C 79 48 H 126/79 91 Oxymask 05/29/24 11:20 126/79 05/29/24 11:20 126/79 05/29/24 11:20 126/79 05/29/24 11:20 126/79 05/29/24 11:20 126/79 05/29/24 11:20 126/79 05/29/24 11:20 126/79 05/29/24 11:20 126/79 O2 Flow Rate FiO2 05/29/24 15:33 05/29/24 15:31 45 05/29/24 14:27 05/29/24 14:00 05/29/24 14:00 05/29/24 13:30 05/29/24 13:06 05/29/24 12:30 05/29/24 12:30 05/29/24 12:22 05/29/24 12:14 05/29/24 12:11 60 05/29/24 12:06 05/29/24 12:06 60 05/29/24 12:01 05/29/24 12:01 05/29/24 12:01 05/29/24 12:01 05/29/24 11:59 05/29/24 11:48 05/29/24 11:48 15 05/29/24 11:45 12 05/29/24 11:40 10 05/29/24 11:28 11 05/29/24 11:22 10 05/29/24 11:20 05/29/24 11:20 05/29/24 11:20 05/29/24 11:20 05/29/24 11:20 05/29/24 11:20 05/29/24 11:20 05/29/24 11:20 Critical Care Results & Data Vital Signs (Past 12 Hours) Vital Signs Temp Pulse Pulse Resp BP Pulse Ox O2 Del Method 05/29/24 15:33 96 H 20 108/68 94 BiPAP 05/29/24 15:31 98 H 33 H 94 05/29/24 14:27 94 H 34 H 101/70 97 BiPAP 05/29/24 14:00 96 H 38 H 102/67 97 05/29/24 14:00 97 H 41 H 102/67 93 BiPAP 05/29/24 13:30 103 H 28 H 106/67 96 BiPAP 05/29/24 13:06 99 H 37 H 111/67 98 05/29/24 12:30 88 37 H 116/66 98 BiPAP 05/29/24 12:30 87 44 H 116/66 98 BiPAP 05/29/24 12:22 BiPAP 05/29/24 12:14 99 H 40 H 99 BiPAP 05/29/24 12:11 79 33 H 97 BiPAP 05/29/24 12:06 80 34 H 96 05/29/24 12:06 80 40 H 97 05/29/24 12:01 122/73 05/29/24 12:01 122/73 05/29/24 12:01 122/73 05/29/24 12:01 122/73 05/29/24 11:59 95 H 05/29/24 11:48 82 41 H 95 05/29/24 11:48 Non-rebreather 05/29/24 11:45 88 L Oxymask 05/29/24 11:40 82 L Oxymask 05/29/24 11:28 92 Oxymask 05/29/24 11:22 37.4 C 79 48 H 126/79 91 Oxymask 05/29/24 11:20 126/79 05/29/24 11:20 126/79 05/29/24 11:20 126/79 05/29/24 11:20 126/79 05/29/24 11:20 126/79 05/29/24 11:20 126/79 05/29/24 11:20 126/79 05/29/24 11:20 126/79 O2 Flow Rate FiO2 05/29/24 15:33 05/29/24 15:31 45 05/29/24 14:27 05/29/24 14:00 05/29/24 14:00 05/29/24 13:30 05/29/24 13:06 05/29/24 12:30 05/29/24 12:30 05/29/24 12:22 05/29/24 12:14 05/29/24 12:11 60 05/29/24 12:06 05/29/24 12:06 60 05/29/24 12:01 05/29/24 12:01 05/29/24 12:01 05/29/24 12:01 05/29/24 11:59 05/29/24 11:48 05/29/24 11:48 15 05/29/24 11:45 12 05/29/24 11:40 10 05/29/24 11:28 11 05/29/24 11:22 10 05/29/24 11:20 05/29/24 11:20 05/29/24 11:20 05/29/24 11:20 05/29/24 11:20 05/29/24 11:20 05/29/24 11:20 05/29/24 11:20 Lab & Micro Results (Past 24 Hours) RBC 4.01 M/uL (4.70-6.10) L 05/29/24 WBC 7.96 K/ul (4.8-10.8) 05/29/24 Hgb 11.9 g/dl (14.0-18.0) L 05/29/24 Hct 36.5 % (42.0-52.0) L 05/29/24 MCV 91.0 fL (80.0-100.0) 05/29/24 MCH 29.7 pg (25.0-34.0) 05/29/24 MCHC 32.6 g/dL (32.0-36.0) 05/29/24 RDW Standard Deviation 52.4 fL (36.4-46.3) H 05/29/24 RDW Coefficient of Variation 15.8 % (11.5-14.5) H 05/29/24 Plt Count 173 K/uL (130-400) 05/29/24 MPV 10.6 fL (9.4-12.4) 05/29/24 Neutrophils (%) (Auto) 69.7 % 05/29/24 Lymphocytes (%) (Auto) 13.8 % 05/29/24 Monocytes # (Auto) 0.94 K/uL (0.11-0.59) H 05/29/24 Eosinophils # (Auto) 0.29 K/uL (0.00-0.50) 05/29/24 Immature Granulocyte % (Auto) 0.5 % 05/29/24 Neutrophils # (Auto) 5.54 K/uL (1.40-6.50) 05/29/24 Lymphocytes # (Auto) 1.10 K/uL (1.20-3.40) L 05/29/24 Monocytes # (Auto) 0.94 K/uL (0.11-0.59) H 05/29/24 Eosinophils # (Auto) 0.29 K/uL (0.00-0.50) 05/29/24 Basophils # (Auto) 0.05 K/uL (0.00-0.20) 05/29/24 Immature Granulocyte # (Auto) 0.04 K/uL (0.01-0.20) 5 Na 132 mmol/L (136-145) L 05/29/24 K 3.9 mmol/L (3.5-5.1) 05/29/24 Cl 100 mmol/L (98-107) 05/29/24 CO2 28 mmol/L (21-32) 05/29/24 Anion Gap 4 (3-11) 05/29/24 BUN 14 mg/dl (6-23) 05/29/24 Creatinine 0.77 mg/dl (0.6-1.4) 05/29/24 BUN/Creatinine Ratio 18.2 (10-20) 05/29/24 Glu 103 mg/dl (70-99(Fasting)) H 05/29/24 Ca 9.0 mg/dl (8.6-10.3) 05/29/24 Total Bilirubin 0.4 mg/dl (0.2-1.0) 05/29/24 Direct Bilirubin 0.1 mg/dl (0-0.2) 05/29/24 AST 25 U/L (13-39) 05/29/24 ALT 8 U/L (7-52) 05/29/24 Alkaline Phosphatase 67 U/L (34-104) 05/29/24 TP 8.3 gm/dl (6.0-8.3) 05/29/24 Albumin 3.6 gm/dl (3.4-5.0) 05/29/24 2 Mg 1.6 mg/dl (1.7-2.4) L 05/29/24 11:30 Calcium Level 9.0 mg/dl (8.6-10.3) 05/29/24 11:30 Prothromb Time International Ratio 1.1 (0.9-1.1) 05/29/24 11:3 0 Venous Blood pH 7.44 (7.36-7.41) H 05/29/24 15:31 Venous Blood Partial Pressure CO2 38 mmHg (38-50) 05/29/24 15:3 1 Venous Blood Partial Pressure O2 49 mmHg 05/29/24 15:31 Venous Blood HCO3 26 mmol/L 05/29/24 15:31 Venous Blood Base Excess 1.7 mEq/L 05/29/24 15:31 Venous Blood Oxygen Saturation 84.1 % 05/29/24 15:31 Diagnostic Findings (Past 24 Hours) Chest X-Ray 05/29/24 11:19 XR chest 1V portable CLINICAL HISTORY: Sepsis COMPARISON STUDY: 06/26/2022 FINDINGS: There is stable cardiomegaly without pulmonary vascular congestion. There is progressive diffuse interstitial pulmonary opacity. There is interval hazy and patchy opacity throughout the left lung. No pleural effusion or pneumothorax. IMPRESSION: 1. Findings suggestive of progressive interstitial lung disease. 2. Findings consistent with superimposed pneumonia at the left lung. ACT 112: Negative or not required by law. Electronically signed by: Deshaun Nix M.D. 05/29/2024 11:42 AM I & O Totals 24 Hours 05/28/24 05/29/24 05/30/24 06:59 06:59 06:59 Intake Total 200 / 200 Balance 200 / 200 Cumulative 05/29/24 10:59 thru 05/29/24 14:10 Intake Total 200 Balance 200 RT Ventilator Mngmt (Last Documented) Ventilator Ordered Settings Respiratory Rate 20 05/29/24 15:33 Fraction of Inspired Oxygen 45 05/29/24 15:31 Ventilator - PT Measurements Respiratory Rate 20 Coding Level of Care Code 00201 CRITICAL CARE 1ST 30-74M Diagnoses Acute on chronic hypoxic respiratory failure J96.21 Influenza A J10.1 Hypoxia R09.02 Interstitial lung disease J84.9
[2024-05-29] MEDS ORDERED: ONDANSETRON INJ 2 MG/ML 2 ML VIAL IV PRN (15:59)
[2024-05-29] MEDS ORDERED: ACETAMINOPHEN 325 MG TAB PO PRN (15:59)
[2024-05-29] MEDS ORDERED: IPRATROPIUM BROMIDE NEB SOLN 0.02% 0.5MG/2.5ML VIAL INH PRN (15:59)
[2024-05-29] MEDS: VANCOMYCIN HCL 2,250 MG in SODIUM CHLORIDE 0.9% 500 ML IV ONE (16:04)
[2024-05-29] MEDS ORDERED: Nursing to Pharmacy Communication SCH (16:15)
[2024-05-29] MEDS ORDERED: ICU Protocol for HYPERglycemia SCH (16:30)
[2024-05-29] MEDS ORDERED: AZITHROMYCIN 500 MG VIAL IV STA (16:47)
[2024-05-29] MEDS ORDERED: CEFEPIME 1000MG 1,000 MG/10 ML SYR IV SCH (17:00)
[2024-05-29] MEDS: AZITHROMYCIN 500 MG/255 ML D5W BAG IV STA (17:30)
[2024-05-29] MEDS: CEFEPIME 2000MG 2,000 MG/20 ML SYR IV SCH (17:31)
--- OUTSIDE RECORDS SUMMARY | 2024-05-29 17:54 | External Medical Summary | Summary of Care ---
Author Name Unknown Organization [facility] Address [address] [place] [address] Phone [phone] Care Team Providers Care Chemical Processing Laborer Name Role Phone Pastora Montilla Primary Care Provide r Reason for Visit * Reason Onset Date Comments Medication Question 04/06/2024 Bosentan-62. 5 mg Encounter Details Date Type Department Care Team (Late st Contact Info) Description 04/06/2024 Telephone Pulmonary Medicine, [facility] [address] [facility] [place] [address] Rafael Pierre MD [address] [facility] [place] [address] Medication Question (Bosentan-62.5 mg) Allergies No known active allergiesdocumented as of this encounter (statuses as of 04/09/2024) Medications ASPIRIN 81 MG PO TABS one pill each day Active MULTI-VITAMIN PO TABS one pill each day Active Omeprazole 40 MG Oral Capsule Delayed Release (PriLOSEC) Take 1 Capsule by mouth in the morning. 07/09/19 Active Atorvastatin Calcium 40 MG Oral Tablet Take 1 Tablet by mouth in the morning. 30 Tablet 07/09/19 Active oxygen IN GAS Use 2 L/min(Oxygen) as directed at bedtime. And 2 LPM as needed with exertion Active Atorvastatin Calcium 40 MG Oral Tablet (Lipitor) TAKE 1 TABLET BY MOUTH DAILY in the morning 90 Tablet 3 4 7:14 AM EST 05/04/19 24 Active Additional Information Patient not taking.Reported on 04/05/2024 Trelegy Ellipta 100-62.5-25 MCG/ACT Aerosol Powder Breath Activated (Fluticasone-Um eclidinium-Kristin nterol)Indicati ons:ILD (interstitial lung disease) (HCC),Mild persistent reactive airway disease without complication,Ch ronic respiratory failure with hypoxia (HCC) Inhale 1 Puff by mouth in the morning. 180 Blister Dosing Unit 3 4 12:33 PM EDT 05/12/19 24 Active Additional Information Patient not taking.Reported on 02/07/2024 Pantoprazole Sodium 40 MG Oral Tablet Delayed Release (Protonix) Take one tablet by mouth twice a day, pt aware of dose change, increase to twice daily for one month 180 Tablet 3 4 7:37 AM EST 07/13/19 24 Active Fluticasone Propionate 50 MCG/ACT Nasal Suspension (Flonase) Administer 1 [place] into each nostril 2 times a day. 48 g 3 4 8:31 AM EST 08/17/19 24 Active Ipratropium-Alb uterol 0.5-2.5 (3) MG/3ML Inhalation Solution (Duoneb) Inhale 3 mL by mouth every 6 hours as needed. Active Albuterol Sulfate HFA 108 (90 Base) MCG/ACT Inhalation Aerosol Solution Inhale 2 Puffs by mouth 3 times a day as needed for shortness of breath, wheezing, or cough 20.1 g 2 12/10/19 24 Active Pirfenidone 267 MG Oral Capsule (Esbriet) Take 2 Capsules by mouth in the morning and 2 Capsules at noon and 2 Capsules before bedtime. 180 Capsule 2 04/05/19 25 025 Active Benzonatate 200 MG Oral Capsule Take 1 Capsule by mouth 3 times a day as needed for Cough. 50 Capsule 10 5 11:26 AM EST 04/05/19 25 Active Azelastine HCl 0.1 % Nasal Solution (Astelin) Administer 1 [place] into nostril in the morning and 1 [place] before bedtime. 30 mL 12 5 11:26 AM EST 04/05/19 25 Active Bosentan 62.5 MG Oral Tablet (Tracleer) Take 125 mg by mouth in the morning and 125 mg before bedtime. 120 Tablet 3 04/05/19 25 025 Discontinued Hospital, Clinic, or Other Facility Administered Medication Ordered Dose Route Frequency Start Date End Date Status Albuterol Sulfate (Proventil) (2.5 MG/3ML) 0.083% inhalation solution 2.5 mgIndications:ILD (interstitial lung disease) (HCC),Chronic respiratory failure with hypoxia (HCC) 2.5 mg NEBULIZER PRN 01/30/2024 Active Albuterol Sulfate (Proventil) (5 MG/ML) 0.5% *conc* inhalation solution 2.5 mgIndications:ILD (interstitial lung disease) (HCC),Chronic respiratory failure with hypoxia (HCC) 2.5 mg NEBULIZER PRN 01/30/2024 Active Albuterol Sulfate (Proventil) (2.5 MG/3ML) 0.083% inhalation solution 2.5 mgIndications:ILD (interstitial lung disease) (HCC) 2.5 mg NEBULIZER PRN 01/31/2024 Active Albuterol Sulfate (Proventil) (5 MG/ML) 0.5% *conc* inhalation solution 2.5 mgIndications:ILD (interstitial lung disease) (HCC) 2.5 mg NEBULIZER PRN 01/31/2024 Active documented as of this encounter (statuses as of 04/09/2024) Active Problems Problem Noted Date Diagnosed Date CA of prostate 07/08/2022 ILD (interstitial lung disease) 07/08/2022 Gastroesophageal reflux disease without esophagi tis 07/08/2022 Chronic cough 07/08/2022 Benign neoplasm of colon 05/05/2007 Overview (05/10/2007): polyps, diverticulosis, adenomatous polyps--repeat 5 years Family history of other cardiovascular diseases 10/03/2001 Overview (06/06/2015): ICD-10 update of inactive term HYPERLIPIDEMIA NEC-NOS Mitral valve disorder documented as of this encounter (statuses as of 04/09/2024) Immunizations Name Administration Dates Next Due Diptheria/Tetanus (Adult) 03/15/1994 HEP A - Hepatitis A (Adult > 18 yrs) 03/10/1998, 10/03/1997 Hepatitis A Vaccine 03/10/1998,10/03/1997 Hepatitis B Vaccine 03/27/1998,10/31/1997,1997 Hepatitis B, 20+ yrs 07/11/1998,03/27/18 99,10/31/1997,10/03,07/11/1997 Pneumococcal Conjugate Vacc, 13 Valent (Prevnar) 11/08/2017 Pneumococcal Polysaccharide PPV23 (Pneumovax) 09/07/2019 RSV Vac., Bivalent, Perfusio n F, Pf,0.5 Ml (Abrysvo) 02/22/2024 RSV Vac., Recomb, Adjuvant, PF,0.5 Ml (Arexvy) 02/22/2024 Seasonal Influenza Vac., MDV , IM, 0.5 mL (Fluzone) 01/04/2002,01/02/1999 Seasonal Influenza Virus Vac cine, Unspecified Formulation 12/25/1997 Seasonal Influenza, High Dos e, Trivalent, PF, IM (Fluzone HD) 12/15/2018 Seasonal Influenza, Quadriva lent Hd (Fluzone Hd) 01/14/2024 TD, Preservative Free 10/31/1994,03/15/1994 Varicella Zoster Vaccine (Adult) 10/05/2012 Zoster Vaccine Recombinant (Shingrix) 09/08/2021 documented as of this encounter Social History Tobacco Use Types Packs/Day Years Used Date Smoking Tobacco: Never Smokeless Tobacco: Never Alcohol Use Standard Drinks/Week Comments No 0 (1 standard drink = 0.6 oz pur e alcohol) Sex and Gender Information Value Date Recorded Sex Assigned at Not on file Legal Sex Male 4:49 AM EST Gender Identity Not on file Sexual Orientation Not on file Occupation Industry Job Start Date Job End Date CONTRACTOR Not on file Not on file Not on file documented as of this encounter Miscellaneous Notes * Telephone Encounter - Rafael Pierre MD - 04/09/2024 8:12 PM EST Bosentan Prescription has been rewritten to reflect MAINTENANCE ONE TAB BID status (as recommended by [facility] ). THX Dr Pierre * Telephone Encounter - Barbra Salazar LPN - 04/06/2024 11:49 AM EST Clarification request: Bosentan-62.5 ng Please clarify patient's medication regimen. Per pt hx, patient takes 1 tab bid but new script is currently written for 2 tabs bid. Please confirm this dose increase w/mdo. Thanks . documented in this encounter Plan of Treatment Upcoming Encounters Date Type Department Care Team (Late st Contact Info) Description 05/08/2024 8:45 AM EST Imaging Radiology [facility] [address] [place] [phone] 05/15/2024 9:30 AM EST Office Visit Pulmonary Medicine, [address] [place] [phone] [facility] [address] [facility] [phone] Health Maintenance Due Date Last Done Comments Depression Screening 1962 Hepatitis C Screening 1968 DTap/Tdap Vaccines (1 - Tdap) 11/01/1994 10/31/1994, 03/15/1994, 03/15/1994 Cologuard 11/22/1995 Fecal Occult Blood Test 11/22/1995 Sigmoidoscopy 11/22/1995 Lipid Panel 07/04/2017 07/04/2012, 06/14, 11/23/2011, Additional history exists Colonoscopy 11/03/2017 11/03/2012, 10/14, 05/05/2007 Colorectal Cancer Screening 11/03/2017 Zoster Vaccines (3 of 3) 11/03/2021 09/08/2021, 09/13 COVID-19 Vaccine ( season) 2023 Hepatitis B Vaccine Completed 07/11/1998, 03/27/1998, 03/27/1998, Additional history exists RETIRED - COLONOSCOPY-EVERY 5 YRS AGES 18-100 Discontinued 11/03/2012, 11/03/2012, 05/05/2007 Pneumococcal Vaccine: 50+ Years Completed 09/07/2019, 11/08/2017 Influenza Vaccine (FLU shot) Completed 01/14/2024, 12/15/2018, 01/04/2002, Additional history exists HPV (Gardasil) Vaccine Aged Out No lo nger eligible based on patient's age to complete this topic MENINGOCOCCAL (MENACTRA/MENVEO) Aged Out No longer eligible based on patient's age to complete this topic documented as of this encounter Medical Devices Not on filedocumented as of this encounter Care Teams Chemical Processing Laborer Relationship Specialty Start Date End Date Pastora Montilla CRNP [address] [place] [id number] PCP - General Nurse Practitioner 08/07/22 documented as of this encounter
--- OUTSIDE RECORDS SUMMARY | 2024-05-29 17:54 | External Medical Summary | Summary of Care ---
Author Name Unknown Organization [facility] Address [address] [place] [address] Phone [phone] Care Team Providers Care Medical Technologist Clinical Name Role Phone Pastora Montilla Primary Care Provide r Reason for Visit * Reason Onset Date Comments Medication Problem 03/16/2024 Bosentan-ator vastatin Encounter Details Date Type Department Care Team (Late st Contact Info) Description 03/16/2024 Telephone Pulmonary Medicine Sherry Duenas [address] [phone] Rafael Pierre MD [address] [phone] Medication Problem (Bosentan-atorvastatin ) Allergies No known active allergiesdocumented as of this encounter (statuses as of 03/16/2024) Medications ASPIRIN 81 MG PO TABS one pill each day Active MULTI-VITAMIN PO TABS one pill each day Active Omeprazole 40 MG Oral Capsule Delayed Release (PriLOSEC) Take 1 Capsule by mouth in the morning. 3 Active Atorvastatin Calcium 40 MG Oral Tablet Take 1 Tablet by mouth in the morning. 30 Tablet 3 Active oxygen IN GAS Use 2 L/min(Oxygen) as directed at bedtime. And 2 LPM as needed with exertion Active Atorvastatin Calcium 40 MG Oral Tablet (Lipitor) TAKE 1 TABLET BY MOUTH DAILY in the morning 90 Tablet 3 01/25/2024 7:14 AM EST 4 Active Trelegy Ellipta 100-62.5-25 MCG/ACT Aerosol Powder Breath Activated (Fluticasone-Ume clidinium-Vilant flora)Indications :ILD (interstitial lung disease) (HCC),Mild persistent reactive airway disease without complication,Chr onic respiratory failure with hypoxia (HCC) Inhale 1 Puff by mouth in the morning. 180 Blister Dosing Unit 3 08/06/2023 12:33 PM EDT 4 Active Additional Information Patient not taking.Reported on 02/07/2024 Pantoprazole Sodium 40 MG Oral Tablet Delayed Release (Protonix) Take one tablet by mouth twice a day, pt aware of dose change, increase to twice daily for one month 180 Tablet 3 01/26/2024 7:37 AM EST 4 Active Fluticasone Propionate 50 MCG/ACT Nasal Suspension (Flonase) Administer 1 [place] into each nostril 2 times a day. 48 g 3 02/11/2024 8:31 AM EST 4 Active Ipratropium-Albu terol 0.5-2.5 (3) MG/3ML Inhalation Solution (Duoneb) Inhale 3 mL by mouth every 6 hours as needed. Active Pirfenidone 267 MG Oral Capsule (Esbriet) Take 1 Capsule by mouth in the morning and 1 Capsule at noon and 1 Capsule before bedtime. 90 Capsule 2 02/18/2024 3:38 PM EST 4 05/07/19 25 Active Benzonatate 200 MG Oral Capsule Take 1 Capsule by mouth 3 times a day as needed for Cough. 20 Capsule 02/09/2024 1:13 PM EST 4 Active Albuterol Sulfate HFA 108 (90 Base) MCG/ACT Inhalation Aerosol Solution Inhale 2 Puffs by mouth 3 times a day as needed for shortness of breath, wheezing, or cough 20.1 g 2 4 Active Bosentan 62.5 MG Oral Tablet (Tracleer) Take 62.5 mg by mouth in the morning and 62.5 mg before bedtime. 60 Tablet 2 Active Hospital, Clinic, or Other Facility Administered Medication [...] as of this encounter (statuses as of 03/16/2024) Active Problems Problem Noted Date Diagnosed Date [...] as of this encounter (statuses as of 03/16/2024) Immunizations Name Administration Dates Next Due HEP A - Hepatitis A (Adult > 18 yrs) 03/10/1998, 10/03/1997 Hepatitis B, 20+ yrs 07/11/1998,03/27/18 99,10/31/1997,10/03,07/11/1997 Pneumococcal Conjugate Vacc, 13 Valent (Prevnar) 11/08/2017 Pneumococcal Polysaccharide PPV23 (Pneumovax) 09/07/2019 RSV Vac., Bivalent, Perfusio n F, Pf,0.5 Ml (Abrysvo) 02/22/2024 RSV Vac., Recomb, Adjuvant, PF,0.5 Ml (Arexvy) 02/22/2024 Seasonal Influenza, High Dos e, Trivalent, PF, [...] encounter Miscellaneous Notes * Telephone Encounter - Barbra Salazar LPN - 03/16/2024 9:[address] [facility] speciality pharmacy Has question About these two medications NEED TO CLARIFY DDI BETWEEN BOSENTAN AND ATORVASTATIN documented in this encounter Plan of Treatment Upcoming Encounters Date Type Department Care Team (Late st Contact Info) Description 04/12/2024 8:00 AM EST Office Visit Pulmonary Medicine, [facility] [address] [place] [id number] Rafael Pierre MD [address] [phone] Health Maintenance Due Date Last Done Comments Depression Screening 1962 Hepatitis C Screening 1968 DTap/Tdap Vaccines (1 - Tdap) 11/01/1994 10/31/1994, 03/15/1994, 03/15/1994 Cologuard 11/22/1995 Fecal Occult Blood Test 11/22/1995 Sigmoidoscopy 11/22/1995 Lipid Panel 07/04/2017 07/04/2012, 06/14, 11/23/2011, Additional history exists Colonoscopy 11/03/2017 11/03/2012, 10/14, 05/05/2007 Colorectal Cancer Screening 11/03/2017 Zoster Vaccines (3 of 3) 11/03/2021 09/08/2021, 09/13 COVID-19 Vaccine ( - 2023- season) 2023 Hepatitis B Vaccine Completed 07/11/1998, [...] filedocumented as of this encounter Care Teams Medical Technologist Clinical Relationship Specialty Start Date End Date Pastora Montilla CRNP [address] [place] [id number] PCP - General Nurse Practitioner 08/07/22 documented as of this encounter
--- OUTSIDE RECORDS SUMMARY | 2024-05-29 17:54 | External Medical Summary | Summary of Care ---
Author Name Unknown Organization [facility] Address [address] [place] [address] Phone [phone] Care Team Providers Care Video Editing Intern Name Role Phone Pastora Montilla Primary Care Provide r Reason for Referral * Precert (Within 10 days (routine)) - Authorized Specialty Diagnoses / Procedures Referred By Naomy [email or web address] Referred To Contact Radiology Diagnoses ILD (interstitial lung disease) (HCC) Chronic cough Procedures CT CHEST WO CONTRAST Rafael Pierre MD [address] [address] Phone: tel: fax: Referral ID Status Reason Start Date Expiration Date V isits Requested Visits Authorized [id number] Authorized 06/03/2024 999 [id number] Reason for Visit * Reason Comments Follow Up Return pulm. 2 mo. C hronic resp failure with hypoxia. Encounter Details Date Type Department Care Team (Late st Contact Info) Description 04/05/2024 8:40 AM EST Office Visit Pulmonary Medicine, [facility] [address] [facility] [address] [place] [id number] Rafael Pierre MD [address] [address] ILD (interstitial lung disease) (HCC)*; Chronic cough Allergies No known active allergiesdocumented as of this encounter (statuses as of 04/05/2024) Medications ASPIRIN 81 MG PO TABS one pill each day Active MULTI-VITAMIN PO TABS one pill each day Active Omeprazole 40 MG Oral Capsule Delayed Release (PriLOSEC) Take 1 Capsule by mouth in the morning. 07/09/19 23 Active Atorvastatin Calcium 40 MG Oral Tablet Take 1 Tablet by mouth in the morning. 30 Tablet 07/09/19 23 Active oxygen IN GAS Use 2 L/min(Oxygen) [...] (Fluticasone-Um eclidinium-Kristin nterol)Indicati ons:ILD (interstitial lung disease) ([facility]),Mild persistent reactive airway disease without complication,Ch ronic respiratory failure with hypoxia ([facility]) Inhale 1 Puff by mouth in the [...] 50 MCG/ACT Nasal Suspension (Flonase) Administer 1 [place] into each nostril 2 times a day. [...] cough 20.1 g 2 12/10/19 24 Active Bosentan 62.5 MG Oral Tablet (Tracleer) Take 125 mg by mouth in the morning and 125 mg before bedtime. 120 Tablet 3 04/05/19 25 Active Pirfenidone 267 MG Oral Capsule (Esbriet) Take 2 Capsules by mouth in the morning and 2 Capsules at noon and 2 Capsules before bedtime. 180 Capsule 2 04/05/19 25 Active Benzonatate 200 MG Oral Capsule Take 1 Capsule by mouth 3 times a day as needed for Cough. 50 Capsule 10 04/05/19 Active Azelastine HCl 0.1 % Nasal Solution (Astelin) Administer 1 [place] into nostril in the morning and 1 [place] before bedtime. 30 mL 12 04/05/19 Active Pirfenidone 267 MG Oral Capsule (Esbriet) Take 1 Capsule by mouth in the morning and 1 Capsule at noon and 1 Capsule before bedtime. 90 Capsule 2 5 1:49 PM EST 02/07/20 24 025 Discontinued Benzonatate 200 MG Oral Capsule Take 1 Capsule by mouth 3 times a day as needed for Cough. 20 Capsule 4 1:13 PM EST 02/07/20 24 025 Discontinued Bosentan 62.5 MG Oral Tablet (Tracleer) Take 62.5 mg by mouth in the morning and 62.5 mg before bedtime. 60 Tablet 2 02/29/20 24 025 Discontinued Hospital, Clinic, or Other Facility Administered Medication Ordered Dose Route Frequency Start Date End Date Status Albuterol Sulfate (Proventil) (2.5 MG/3ML) 0.083% inhalation solution 2.5 mgIndications:ILD (interstitial lung disease) (HCC),Chronic respiratory failure with hypoxia ([facility]) 2.5 mg NEBULIZER PRN 01/30/2024 Active Albuterol [...] as of this encounter (statuses as of 04/05/2024) Active Problems Problem Noted Date Diagnosed Date [...] as of this encounter (statuses as of 04/05/2024) Immunizations Name Administration Dates Next Due HEP [...] on file documented as of this encounter Last Filed Vital Signs Vital Sign Reading Time Taken Comments Blood Pressure 102/60 04/05/2024 8:35 AM EST Pulse 78 04/05/2024 8:35 AM EST Temperature 35.7 C (96.3 F) 04/05/2024 8:35 AM ES T Respiratory Rate 16 04/05/2024 8:35 AM EST Oxygen Saturation 90% 04/05/2024 8:35 AM EST O2 6L -amb Inhaled Oxygen Concentration - - Weight 88.5 kg (195 lb) 04/05/2024 8:35 AM EST Height 174 cm (5' 8.5") 04/05/2024 8:35 AM EST Body Mass Index 29.22 04/05/2024 8:35 AM EST documented in this encounter Progress Notes * Rafael Pierre MD - 04/05/2024 8:26 AM EST Images from the original note were not included. 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 GERD on maintenance acid suppression Patient describes episodic dry cough and shortness of breath on minimal exertion. Compliant with step 1 dosage regimen including pirfenidone/bosentan +ve 6 MWT, 8 L with activity and 3 LPM at night Compliant with DuoNeb nebulizer therapy ? HP. Ruled out. (Worsening/persistent ILD changes were noted following completion of prednisone trial.) Physical examination significant for Class 2 throat, adequate air entry, Bilateral coarse inspiratory rales without wheezing or dullness, regular cardiac rhythm, no evidence of volume overload and nonlateralizing Neuro examination. Category III Pulm HTN with progressive ILD increase perfenidone 2x267 mg TID and bosentaan 2x62,5 BID LFT, CBC, BMP Q 4 weeks (Standing order added) Ask-a-doc to [facility] ILD/Pulm HTN teams placed for co management C/w 3 LPM QHS and 8 LPM with activity continue bronchodilator regimen to DuoNeb nebulizer RX ordered as maintenance therapy Continue with DuoNeb (cost issues) as maintenance bronchodilator regimen Tessalon perles refilled 8 LPM POC ordered for activity use, 3 LPM for night time Patient was educated on pulmonary rehabilitation techniques and availability of cardiopulmonary rehab Follow-up 2 month to review response to ILD-IPF therapy and reassess symptoms status Follow Up: Return in about 2 months (around 06/03/2024) for Clinic Visit. | For: Clinic Visit | Check-out note: Category III Pulm HTN with progressive ILD increase perfenidone 2x267 mg TID and bosentaan 2x62,5 BID LFT, CBC, BMP Q 4 weeks (Standing order added) Ask-a-doc to [facility] ILD/Pulm HTN teams placed C/w 3 LPM QHS and 8 LPM with activity continue bronchodilator regimen to DuoNeb nebulizer RX ordered as maintenance therapy Continue with DuoNeb (cost issues) as maintenance bronchodilator regimen Tessalon perles 8 LPM POC ordered for activity use, 3 LPM for night time Patient was educated on pulmonary Follow Up: Return in about 2 months (around 06/03/2024) for Clinic Visit. | For: Clinic Visit | Check-out note: rehabilitation techniques and availability of cardiopulmonary rehab Follow-up 2 month to review response to ILD-IPF therapy and reassess symptoms status I spent a total of 40-54 minutes (exact time 45 mins) on the date of service in preparation, delivery, and documentation of the care provided to Juanjo Turner excluding any time spent in the performance of separately billed services or time spent by another provider/QHP. Rafael Pierre MD Data review: Following reports, and data as outlined below was personally reviewed and interpreted by myself. HRCT 12/2023 (4 weeks after prednisone trial completed), showed Worsening ILD 6 MWT 01/31/2024: PATIENT COMPLETED 6 MINUTE WALK. PATIENT WAS UP TO 8L NC AND SPO2 WAS ONLY 78%. PATIENT HAD ILD ANDREPORTS THIS IS NORMAL FOR HIM, PATIENT ALSO REPORTS SOB DURING AMBULATION. CT CHEST WO CONTRAST DATE and TIME: 12/14/2023 7:46 am HISTORY CLINICAL INFORMATION: ILD TECHNIQUE IV Contrast: Intravenous contrast was not administered. COMPARISON Chest CT 01/18/2023 FINDINGS LINES AND DEVICES: None. LUNGS: There is worsening moderate peripheral reticular opacity with slight basilar predominance there is no honeycombing. There is mild bronchiolectasis. No significant air trapping. LARGE AIRWAYS: The central airways are patent. PLEURA: There is no pleural effusion or pneumothorax. HEART AND MEDIASTINUM: The heart is mildly enlarged. There is no pericardial effusion. There are moderate to severe coronary artery calcifications. The esophagus is unremarkable by CT. There is a small hiatal hernia. VESSELS: The thoracic aorta and main pulmonary artery are normal in caliber. There is mild atherosclerotic calcification. LYMPH NODES: Several enlarged mediastinal lymph nodes are unchanged probably reactive. CHEST WALL/SOFT TISSUES: Unremarkable. UPPER ABDOMEN: Unremarkable. BONES: Mild degenerative changes in the spine. IMPRESSION IMPRESSION Worsening moderate interstitial fibrotic changes compared to 01/18/2023 with probable UIP pattern. Subjective CC: Chief Complaint Patient presents with Follow Up Return pulm. 2 mo. Chronic resp failure with hypoxia. HPI: Nursing Notes: Barbra Salazar LPN 04/05/24 0840 Signed Chief Complaint Patient presents with Follow Up Return pulm. 2 mo. Chronic resp failure with hypoxia. Interm History/Respiratory Symptoms Cough: yes-clear Hemoptysis: no Sinus Symptoms: yes-drainage/congestion Hospitalizations: no ED Trips: no Triggers: pollen,dust, perfume, smoke, cold weather. Nocturnal: sleeps with head elevated. CPAP/BiPAP/O2: O2 at night 3L DME Supplier: [employer] Flu Vaccine: 2023 Pneumovax: 2020 Prevnar: 2018 COVID 19: x3. MMRC Dyspnea Scale = 4 (I am too breathless to leave the house or I am breathless when dressing) Objective Filed Vitals: 04/05/24 0834 04/05/24 0835 BP: 102/60 Pulse: 78 Resp: 16 16 Temp: 35.7 C (96.3 F) TempSrc: Tympanic SpO2: 91% 90% Weight: 88.5 kg (195 lb) Height: 1.74 m (5' 8.5") 1.74 m (5' 8.5") Exam: Const: No signs of acute distress present. Head/Face: Normal on inspection. Eyes: Conjunctivae clear. Pupils equal round and reactive to light. ENMT: Oropharynx: No erythema, exudate or masses. Posterior pharynx is normal. Neck: Supple and symmetric. Resp: Respiratory examination as outlined above CV: Rate is regular. Rhythm is regular. No heart murmur appreciated. Extremities: No edema of the lower limbs bilaterally. Skin: Skin is warm and dry. Neuro: Coordination normal. No involuntary movement. Psych: Patient's attitude is cooperative. Mood is normal. Affect is normal. Tests reviewed with the patient: CT CHEST WO CONTRAST Result Date: 12/15/2023 IMPRESSION Worsening moderate interstitial fibrotic changes compared to 01/18/2023 with probable UIP pattern. Available Radiologic data was reviewed by me in PACS. The images were shown to the patient and findings were discussed with the patient. HOME MEDICATIONS: Azelastine HCl 0.1 % Nasal Solution (Astelin) Benzonatate 200 MG Oral Capsule Bosentan 62.5 MG Oral Tablet (Tracleer) Pirfenidone 267 MG Oral Capsule (Esbriet) Albuterol Sulfate HFA 108 (90 Base) MCG/ACT Inhalation Aerosol Solution Ipratropium-Albuterol 0.5-2.5 (3) MG/3ML Inhalation Solution (Duoneb) Fluticasone Propionate 50 MCG/ACT Nasal Suspension (Flonase) Pantoprazole Sodium 40 MG Oral Tablet Delayed Release (Protonix) oxygen IN GAS Atorvastatin Calcium 40 MG Oral Tablet Omeprazole 40 MG Oral Capsule Delayed Release (PriLOSEC) ASPIRIN 81 MG PO TABS MULTI-VITAMIN PO TABS Trelegy Ellipta 100-62.5-25 MCG/ACT Aerosol Powder Breath Activated (Oheujnwmfrz-Brqtihcisxhs-Uwhkopmioj) Atorvastatin Calcium 40 MG Oral Tablet (Lipitor) Albuterol Sulfate (Proventil) (2.5 MG/3ML) 0.083% inhalation solution 2.5 mg Albuterol Sulfate (Proventil) (5 MG/ML) 0.5% *conc* inhalation solution 2.5 mg Albuterol Sulfate (Proventil) (2.5 MG/3ML) 0.083% inhalation solution 2.5 mg Albuterol Sulfate (Proventil) (5 MG/ML) 0.5% *conc* inhalation solution 2.5 mg ROS: No reported history of Hemoptysis, Hematemesis, Melena No reported history of Dysuria, Hematuria, Flank Pain No reported history of chronic headache, seizures No reported history of Fall or trauma . No reported history of recent change in weight or appetite. 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 ,MITRAL VALVE REGURG Past Surgical History: Procedure Laterality Date COLONOSCOPY W/ LESION REMOVAL, SNARE 05/05/07 polyps, diverticulosis, adenomatous polyps--repeat 5 years COLONOSCOPY, DIAGNOSTIC (RECTUM) 11/03/2012 COLONOSCOPY FLEXIBLE PROXIMAL DIAGNOSTIC performed by Zadner Perkins MD at [facility] Social History Socioeconomic History Marital status: Spouse name: LUDA Number of children: 2 Occupational History Occupation: CONTRACTOR Comment: SELF EMPLOYED Tobacco Use Smoking status: Never Smokeless tobacco: Never Vaping Use Vaping status: Never Used Substance and Sexual Activity Alcohol use: No Drug use: No Sexual activity: Yes Partners: Female Comment: , TWO CHILDREN Other Topics Concern Service No Blood Transfusions No Caffeine Concern No Occupational Exposure No Comment: CONTRACTOR Hobby Hazards No Sleep Concern No Stress Concern Yes Weight Concern Yes Special Diet No Back Care No Exercise Yes Bike Helmet No Seat Belt Yes Social History Narrative 1 dog and horses outside No mold Family History Problem Relation Name Age of Onset No Past Hx Mother 70 in 02 Heart Disorder Father DEC [place] 62 [place] No Known Problems Sister Heart Disorder Sister CABG 46 [place] 99 Rectal cancer Brother Hypertension Brother Hypertension Brother Other (ANA) Brother Hypertension Brother Diabetes Grandmother (Paternal) iddm Review of patient's allergies indicates: No Known Allergies documented in this encounter Nursing Notes * Barbra Salazar LPN - 04/05/2024 8:38 AM EST Chief Complaint Patient presents with Follow Up Return pulm. 2 mo. Chronic resp failure with hypoxia. Interm History/Respiratory Symptoms Cough: yes-clear Hemoptysis: no Sinus Symptoms: yes-drainage/congestion Hospitalizations: no ED Trips: no Triggers: pollen,dust, perfume, smoke, cold weather. Nocturnal: sleeps with head elevated. CPAP/BiPAP/O2: O2 at night 3L DME Supplier: [employer] Flu Vaccine: 2023 Pneumovax: 2019 Prevnar: 2018 COVID 19: x3. MMRC Dyspnea Scale = 4 (I am too breathless to leave the house or I am breathless when dressing) documented in this encounter Plan of Treatment Upcoming Encounters Date Type Department Care Team (Late st Contact Info) Description 04/05/2024 10:50 AM EST Laboratory Laboratory, [facility] [address] [facility] [place] [phone] [facility] [address] [facility] [place] [address] ILD (interstitial lung disease) (HCC); Chronic cough 05/08/2024 8:45 AM EST Imaging Radiology [facility] 1st Floor, [place] [address] [place] [phone] 05/15/2024 9:30 AM EST Office Visit Pulmonary Medicine, [facility] [address] [facility] [place] [address] Rafael Pierre MD [address] [facility] [place] [phone] Pending Results Name Type Priority Associated Diagnoses Date /Time HEPATIC FUNCTION PANEL Lab Routine ILD (interstitial lung disease) (HCC) Chronic cough 04/05/2024 9:45 AM EST CBC Lab Routine ILD (interstitial lung disease) (HCC) Chronic cough 04/05/2024 9:45 AM EST BASIC METABOLIC PANEL Lab Routine ILD (interstitial lung disease) (HCC) Chronic cough 04/05/2024 9:45 AM EST Scheduled Orders Name Type Priority Associated Diagnoses Orde r Schedule HEPATIC FUNCTION PANEL Lab Routine ILD (interstitial lung disease) (HCC) Chronic cough Every Month for 24 Occurrences starting 04/05/2024 until 04/05/2025 CBC Lab Routine ILD (interstitial lung disease) (HCC) Chronic cough Every Month for 24 Occurrences starting 04/05/2024 until 04/05/2025 BASIC METABOLIC PANEL Lab Routine ILD (interstitial lung disease) (HCC) Chronic cough Every Month for 24 Occurrences starting 04/05/2024 until 04/05/2025 CT CHEST WO CONTRAST Medical Imaging Routine ILD (interstitial lung disease) (HCC) Chronic cough Expected: 06/03/2024, Expires: 05/06/2025 Health Maintenance Due Date Last Done Comments Depression Screening 1962 Hepatitis C Screening 1968 DTap/Tdap Vaccines (1 - Tdap) 11/01/1994 10/31/1994, 03/15/1994, 03/15/1994 Cologuard 11/22/1995 Fecal Occult Blood Test 11/22/1995 Sigmoidoscopy 11/22/1995 Lipid Panel 07/04/2017 07/04/2012, 06/14, 11/23/2011, Additional history exists Colonoscopy 11/03/2017 11/03/2012, 10/14, 05/05/2007 Colorectal Cancer Screening 11/03/2017 Zoster Vaccines (3 of 3) 11/03/2021 09/08/2021, 09/13 COVID-19 Vaccine (1 - 2023- season) 2023 Hepatitis B Vaccine [...] Not on filedocumented as of this encounter Visit Diagnoses Diagnosis ILD (interstitial lung disease) (HCC)- Primary Postinflammatory pulmonary fibrosis Chronic cough Cough ILD (interstitial lung disease) (HCC) Postinflammatory pulmonary fibrosis Chronic cough Cough documented in this encounter Care Teams Video Editing Intern Relationship Specialty Start Date End Date Pastora Montilla CRNP [address] [place] [id number] PCP - General Nurse Practitioner 08/07/22 documented as of this encounter
--- OUTSIDE RECORDS SUMMARY | 2024-05-29 17:54 | External Medical Summary ---
Author Name Unknown Address Unknown Organization [id number] [place] [address] Laboratory Report Ordering Provider Test Date Status ELETUERIO PATEL 05/08/2024 08:55:58 Final Observation Date Value Abnormality Reference (Units ) Status Albumin 05/08/2024 08:55:58 3.7 Below low normal 3.8-5.0 (g/dL) Final AST (Aspartate aminotransferase) 05/08/2024 08:55:58 28 10-50 (U/L) Final Alk Phos 05/08/2024 08:55:58 90 35-130 (U/L) Final ALT (Alanine aminotransferase) 05/08/2024 08:55:58 12 10-50 (U/L) Final Bilirubin, Total 05/08/2024 08:55:58 0.3 <=1.2 (mg/dL) Final Bilirubin, Direct 05/08/2024 08:55:58 <0.1 0.0-0.3 (mg/dL) Final Protein 05/08/2024 08:55:58 8.1 6.0-8.3 (g/dL) Final Performing Location [facility] [address] [place] [address]
--- OUTSIDE RECORDS SUMMARY | 2024-05-29 17:54 | External Medical Summary | Summary of Care ---
Author Name Unknown Organization [facility] Address [address] [place] [address] Phone [phone] Care Team Providers Care Administrative Services Manager Name Role Phone Pastora Montilla Primary Care Provide r Reason for Referral * Precert (Within 10 days (routine)) - Authorized Specialty Diagnoses / Procedures Referred By Naomy t Referred To Contact Radiology Diagnoses ILD (interstitial lung disease) (HCC) Procedures CT CHEST WO CONTRAST Angelo Jones PA-C [address] [place] [phone] Phone: tel: fax: Referral ID Status Reason Start Date Expiration Date V isits Requested Visits Authorized [id number] Authorized 08/15/2024 999 999 Reason for Visit * Reason Comments Follow Up Encounter Details Date Type Department Care Team (Latest Contact Info) Description 05/15/2024 9:30 AM EST Office Visit Pulmonary Medicine, [facility] [address] [place] [address] Rafael Pierre MD [address] [place] [phone] ILD (interstitial lung disease) (HCC)*; Severe pulmonary hypertension (HCC); Chronic cough; Chronic respiratory failure with hypoxia (HCC); Gastroesophageal reflux disease without esophagitis; CA of prostate (HCC); At risk for hepatotoxicity Allergies No known active allergiesdocumented as of this encounter (statuses as of 05/15/2024) Medications ASPIRIN 81 MG PO TABS one [...] Use 2 L/min(Oxygen) as directed at bedtime. Currently using 4 LPM at night and at rest, 6LPM or more with exertion Active Trelegy Ellipta 100-62.5-25 MCG/ACT Aerosol Powder Breath Activated (Fluticasone-Ume clidinium-Vilant flora)Indications :ILD (interstitial lung disease) ([facility]),Mild persistent reactive airway disease without complication,Chr onic respiratory failure with hypoxia (HCC) Inhale 1 Puff by mouth in the morning. 180 Blister Dosing Unit 3 08/06/2023 12:33 PM EDT 4 Active Additional Information Patient not taking.Reported on 05/15/2024 Pantoprazole Sodium 40 MG Oral Tablet Delayed Release (Protonix) Take one tablet by mouth twice a day, pt aware of dose change, increase to twice daily for one month 180 Tablet 3 04/25/2024 4:21 PM EST 4 Active Fluticasone Propionate 50 MCG/ACT Nasal Suspension (Flonase) Administer 1 [place] into each nostril 2 times a day. 48 g 3 05/11/2024 10:33 AM EST 4 Active Ipratropium-Albu terol 0.5-2.5 (3) MG/3ML Inhalation Solution (Duoneb) Inhale 3 mL by mouth every 6 hours as needed. Active Albuterol Sulfate HFA 108 (90 Base) MCG/ACT Inhalation Aerosol Solution Inhale 2 Puffs by mouth 3 times a day as needed for shortness of breath, wheezing, or cough 20.1 g 2 4 Active Pirfenidone 267 MG Oral Capsule (Esbriet) Take 2 Capsules by mouth in the morning and 2 Capsules at noon and 2 Capsules before bedtime. 180 Capsule 2 5 07/05/19 25 Active Benzonatate 200 MG Oral Capsule Take 1 Capsule by mouth 3 times a day as needed for Cough. 50 Capsule 10 04/07/2024 11:26 AM EST 5 Active Azelastine HCl 0.1 % Nasal Solution (Astelin) Administer 1 [place] into nostril in the morning and 1 [place] before bedtime. 30 mL 12 04/07/2024 11:26 AM EST 5 Active Bosentan 62.5 MG Oral Tablet (Tracleer) Take 62.5 mg by mouth in the morning and 62.5 mg before bedtime. 60 Tablet 2 5 07/09/19 25 Active Atorvastatin Calcium 40 MG Oral Tablet (Lipitor) TAKE 1 TABLET BY MOUTH DAILY in the morning 90 Tablet 3 04/21/2024 1:47 PM EST 5 Active Hospital, Clinic, or Other Facility Administered Medication Ordered Dose Route Frequency Start Date End Date Status Albuterol Sulfate (Proventil) (2.5 MG/3ML) 0.083% inhalation solution 2.5 mgIndications:ILD (interstitial lung disease) ([facility]),Chronic respiratory failure with hypoxia ([facility]) 2.5 mg NEBULIZER PRN 01/30/2024 Active Albuterol Sulfate (Proventil) (5 MG/ML) 0.5% *conc* inhalation solution 2.5 mgIndications:ILD (interstitial lung disease) (HCC),Chronic respiratory failure with hypoxia ([facility]) 2.5 mg NEBULIZER PRN 01/30/2024 Active Albuterol Sulfate (Proventil) (2.5 MG/3ML) 0.083% inhalation solution 2.5 mgIndications:ILD (interstitial lung disease) ([facility]) 2.5 mg NEBULIZER PRN 01/31/2024 Active Albuterol Sulfate (Proventil) (5 MG/ML) 0.5% *conc* inhalation solution 2.5 mgIndications:ILD (interstitial lung disease) ([facility]) 2.5 mg NEBULIZER PRN 01/31/2024 Active documented as of this encounter (statuses as of 05/15/2024) Active Problems Problem Noted Date Diagnosed Date [...] as of this encounter (statuses as of 05/15/2024) Immunizations Name Administration Dates Next Due HEP [...] Sign Reading Time Taken Comments Blood Pressure 122/72 05/15/2024 9:28 AM EST Pulse 81 05/15/2024 9:28 AM EST Temperature 36.3 C (97.4 F) 05/15/2024 9 :28 AM EST Respiratory Rate 20 05/15/2024 9:28 AM EST Oxygen Saturation 90% 05/15/2024 9:2 8 AM EST O2 6LPM, on demand, rest Inhaled Oxygen Concentration - - Weight 82.1 kg (181 lb) 05/15/2024 9:28 AM EST Height 174 cm (5' 8.5") 05/15/2024 9:28 AM EST Body Mass Index 27.12 05/15/2024 9:28 AM EST documented in this encounter Nursing Notes * Chary Velazquez LPN - 05/15/2024 9:24 AM EST Pt is here for f/u ILD. MMRC Dyspnea Scale = 4 (I am too breathless to leave the house or I am breathless when dressing) Interm History/Respiratory Symptoms Cough: "all the time", clear phlegm Hemoptysis: no Sinus Symptoms: drainage Hospitalizations: no ED Trips: no Triggers: exertion, bitter cold day, humidity Nocturnal: occasional cough CPAP/BiPAP/O2: O2 4LPM at rest and night, 6LPM + with exertion DME Supplier: [employer] Flu Vaccine: 2023 Pneumovax: 2020 Prevnar: 2018 COVID 19: x 3 documented in this encounter Plan of Treatment Upcoming Encounters Date Type Department Care Team (Late st Contact Info) Description 08/14/2024 9:30 AM EDT Imaging Radiology [facility] [address] [place] [phone] 08/15/2024 9:30 AM EDT Office Visit Pulmonary Medicine, [address] [place] [address] Rafael Pierre MD [address] [place] [phone] Scheduled Orders Name Type Priority Associated Diagnoses Orde r Schedule CT CHEST WO CONTRAST Medical Imaging Routine ILD (interstitial lung disease) (HCC) Expected: 08/15/2024, Expires: 06/15/2025 HEPATIC FUNCTION PANEL Lab Routine At risk for hepatotoxicity Every Month for 12 Occurrences starting 05/15/2024 until 05/15/2025 Health Maintenance Due Date Last Done Comments Depression Screening 1962 Hepatitis C Screening 1968 DTap/Tdap Vaccines (1 - Tdap) 11/01/1994 10/31/1994, 03/15/1994, 03/15/1994 Cologuard 11/22/1995 Fecal Occult Blood Test 11/22/1995 Sigmoidoscopy 11/22/1995 Lipid Panel 07/04/2017 07/04/2012, 06/14, 11/23/2011, Additional history exists Colonoscopy 11/03/2017 11/03/2012, 10/14, 05/05/2007 Colorectal Cancer Screening 11/03/2017 Zoster Vaccines (3 of 3) 11/03/2021 09/08/2021, 09/13 COVID-19 Vaccine ( - season) 2023 Hepatitis B Vaccine Completed 07/11/1998, [...] on patient's age to complete this topic Meningitis B Vaccine (Bexsero/Trumemba) Aged Out No longer eligible based on patient's age to complete this topic documented as of this encounter Medical Devices Not on filedocumented as of this encounter Visit Diagnoses Diagnosis ILD (interstitial lung disease) (HCC)- Primary Postinflammatory pulmonary fibrosis Severe pulmonary hypertension (HCC) Chronic cough Cough Chronic respiratory failure with hypoxia (HCC) Chronic respiratory failure Gastroesophageal reflux disease without esophagitis Esophageal reflux CA of prostate (HCC) Malignant neoplasm of prostate At risk for hepatotoxicity documented in this encounter Care Teams Administrative Services Manager Relationship Specialty Start Date End Date Pastora Montilla CRNP [address] [place] [id number] PCP - General Nurse Practitioner 08/07/22 documented as of this encounter
--- OUTSIDE RECORDS SUMMARY | 2024-05-29 17:54 | External Medical Summary ---
Author Name Unknown Address Unknown Organization [id number] [address] [place] [id number] Laboratory Report Ordering Provider Test Date Status ELEUTERIO PATEL 04/05/2024 09:45:29 Final Observation Date Value Abnormality Reference (Units ) Status WBC, Total 04/05/2024 09:45:29 9.52 4.00-10.8 0 (K/uL) Final RBC 04/05/2024 09:45:29 4.18 4.50-5.25 (M/uL) Final Hemoglobin 04/05/2024 09:45:29 12.6 Below low normal 14 .0-16.8 (g/dL) Final HCT 04/05/2024 09:45:29 38.9 Below low normal 40. 0-48.4 (%) Final MCV 04/05/2024 09:45:29 93.1 82.0-99.5 (fL) Final MCH 04/05/2024 09:45:29 30.1 27.0-34.0 (pg) Final MCHC 04/05/2024 09:45:29 32.4 32.0-36.0 (g/dL) Final RDW 04/05/2024 09:45:29 15.1 11.5-15.5 (%) Final Platelets 04/05/2024 09:45:29 199 140-400 (K /uL) Final MPV 04/05/2024 09:45:29 9.9 6.6-11.1 ( fL) Final Performing Location [facility] [address] [place] [id number]
--- OUTSIDE RECORDS SUMMARY | 2024-05-29 17:54 | External Medical Summary | Summary of Care ---
Author Name Unknown Organization [facility] Address [address] [place] [address] Phone [phone] Care Team Providers Care Edger Machine Operator Name Role Phone Pastora Montilla Primary Care Provide r Encounter Details Date Type Department Care Team (Late st Contact Info) Description 04/04/2024 Population Health External Data Unspecified Department Allergies No known active allergiesdocumented as of this encounter (statuses as of 04/04/2024) Medications ASPIRIN 81 MG PO TABS one [...] 50 MCG/ACT Nasal Suspension (Flonase) Administer 1 [place] into each nostril 2 times a day. 48 g 3 02/11/2024 8:31 AM EST 4 Active Ipratropium-Albu terol 0.5-2.5 (3) MG/3ML Inhalation Solution (Duoneb) Inhale 3 mL by mouth every 6 hours as needed. Active Pirfenidone 267 MG Oral Capsule (Esbriet) Take 1 Capsule by mouth in the morning and 1 Capsule at noon and 1 Capsule before bedtime. 90 Capsule 2 03/20/2024 1:49 PM EST 4 05/07/19 25 Active Benzonatate 200 MG Oral Capsule Take 1 Capsule by mouth 3 times a day as needed for Cough. 20 Capsule 02/09/2024 1:13 PM EST Active Albuterol Sulfate HFA 108 (90 Base) MCG/ACT Inhalation Aerosol Solution Inhale 2 Puffs by mouth 3 times a day as needed for shortness of breath, wheezing, or cough 20.1 g 2 4 Active Bosentan 62.5 MG Oral Tablet (Tracleer) Take 62.5 mg by mouth in the morning and 62.5 mg before bedtime. 60 Tablet 2 4 Active Hospital, Clinic, or Other Facility Administered [...] as of this encounter (statuses as of 04/04/2024) Active Problems Problem Noted Date Diagnosed Date [...] as of this encounter (statuses as of 04/04/2024) Immunizations Name Administration Dates Next Due HEP [...] on file documented as of this encounter Plan of Treatment Upcoming Encounters Date Type Department Care Team (Late st Contact Info) Description 04/05/2024 8:40 AM EST Office Visit Pulmonary Medicine, [facility] [address] [facility] [place] [address] Rafael Pierre MD [address] [place] [phone] Health Maintenance Due Date Last Done Comments Depression Screening 1962 Hepatitis C Screening 1968 DTap/Tdap Vaccines (1 - Tdap) 11/01/1994 10/31/1994, 03/15/1994, 03/15/1994 Cologuard 11/22/1995 Fecal Occult Blood Test 11/22/1995 Sigmoidoscopy 11/22/1995 Lipid Panel 07/04/2017 07/04/2012, 06/14, 11/23/2011, Additional history exists Colonoscopy 11/03/2017 11/03/2012, 10/14, 05/05/2007 Colorectal Cancer Screening 11/03/2017 Zoster Vaccines (3 of 3) 11/03/2021 09/08/2021, 09/13 COVID-19 Vaccine (1 - season) 2023 Hepatitis B Vaccine Completed [...] filedocumented as of this encounter Care Teams Edger Machine Operator Relationship Specialty Start Date End Date Pastora Montilla CRNP [address] [place], [place] [address] [address] PCP - General Nurse Practitioner 08/07/22 documented as of this encounter
--- OUTSIDE RECORDS SUMMARY | 2024-05-29 17:54 | External Medical Summary | Summary of Care ---
Author Name Unknown Organization [facility] Address [address] [place] [address] Phone [phone] Care Team Providers Care Ecological Economist Name Role Phone Pastora Montilla Primary Care Provide r Reason for Visit * Reason Onset Date Comments Medication Question 04/06/2024 Bosentan-62. 5 mg Encounter Details Date Type Department Care Team (Late st Contact Info) Description 04/06/2024 Telephone Pulmonary Medicine, [facility] 132 [facility] [place] [address] Rafael Pierre MD [address] [facility] [place] [address] Medication Question (Bosentan-62.5 mg) Allergies No known active allergiesdocumented as of this encounter (statuses as of 04/06/2024) Medications ASPIRIN 81 MG PO TABS one [...] 3 01/25/2024 7:14 AM EST 4 Active Additional Information Patient not taking.Reported [...] 50 MCG/ACT Nasal Suspension (Flonase) Administer 1 [place] into each nostril 2 times a day. [...] 125 mg before bedtime. 120 Tablet 3 5 08/04/19 25 Active Pirfenidone 267 MG Oral Capsule (Esbriet) Take 2 Capsules by mouth in the morning and 2 Capsules at noon and 2 Capsules before bedtime. 180 Capsule 2 5 07/05/19 25 Active Benzonatate 200 MG Oral Capsule Take 1 Capsule by mouth 3 times a day as needed for Cough. 50 Capsule 10 Active Azelastine HCl 0.1 % Nasal Solution (Astelin) Administer 1 [place] into nostril in the morning and 1 [place] before bedtime. 30 mL 12 Active Hospital, Clinic, or Other Facility Administered [...] as of this encounter (statuses as of 04/06/2024) Active Problems Problem Noted Date Diagnosed Date [...] as of this encounter (statuses as of 04/06/2024) Immunizations Name Administration Dates Next Due HEP [...] Description 05/08/2024 8:45 AM EST Imaging Radiology [address], [place] [address] [place] [phone] 05/15/2024 9:30 AM EST Office Visit Pulmonary Medicine, [facility] [address] [place] [address] Rafael Pierre MD [address] [place] [address] Health Maintenance Due Date Last Done Comments [...] filedocumented as of this encounter Care Teams Ecological Economist Relationship Specialty Start Date End Date Pastora Montilla CRNP [address] [place] [address] [place] [phone] PCP - General Nurse Practitioner 08/07/22 documented as of this encounter
--- OUTSIDE RECORDS SUMMARY | 2024-05-29 17:54 | External Medical Summary | Summary of Care ---
Author Name Unknown Organization [facility] Address [address] [place] [address] Phone [phone] Care Team Providers Care Joiners Supervisor Name Role Phone Pastora Montilal Primary Care Provide r Reason for Visit * Reason Onset Date Comments Test Results 02/21/2024 6MW Encounter Details Date Type Department Care Team (Late st Contact Info) Description 02/21/2024 Telephone Pulmonary Medicine, [facility] 132 [facility] [place] [phone] Rafael Pierre MD [address] [facility] [place] [phone] Test Results (6MW) Allergies No known active allergiesdocumented as of this encounter (statuses as of 05/11/2024) Medications ASPIRIN 81 MG PO TABS one [...] 2 LPM as needed with exertion Active Trelegy Ellipta 100-62.5-25 MCG/ACT Aerosol Powder Breath Activated (Fluticasone-U meclidinium-Vi lanterol)Indic ations:ILD (interstitial lung disease) (HCC),Mild persistent reactive airway disease without complication,C hronic respiratory failure with hypoxia (HCC) Inhale 1 [...] daily for one month 180 Tablet 3 5 4:21 PM EST 07/13/19 24 Active Fluticasone Propionate 50 MCG/ACT Nasal Suspension (Flonase) Administer 1 [place] into each nostril 2 times a day. 48 g 3 5 10:33 AM EST 08/17/19 24 Active Ipratropium-Al buterol 0.5-2.5 (3) MG/3ML Inhalation Solution (Duoneb) Inhale 3 mL by mouth every 6 hours as needed. Active Albuterol Sulfate HFA 108 (90 Base) MCG/ACT Inhalation Aerosol Solution Inhale 2 Puffs by mouth 3 times a day as needed for shortness of breath, wheezing, or cough 20.1 g 2 12/10/19 24 Active Atorvastatin Calcium 40 MG Oral Tablet (Lipitor) TAKE 1 TABLET BY MOUTH DAILY in the morning 90 Tablet 3 4 7:14 AM EST 05/04/19 24 025 Discontinued(R efill) Pirfenidone 267 MG Oral Capsule (Esbriet) Take 1 Capsule by mouth in the morning and 1 Capsule at noon and 1 Capsule before bedtime. 90 Capsule 2 5 1:49 PM EST 02/07/20 24 025 Discontinued Bosentan 62.5 MG Oral Tablet (Tracleer) Take 62.5 mg by mouth in the morning and 62.5 mg before bedtime. 60 Tablet 2 02/07/20 24 024 Discontinued(R efill) Benzonatate 200 MG Oral Capsule Take 1 Capsule by mouth 3 times a day as needed for Cough. 20 Capsule 4 1:13 PM EST 02/07/20 24 025 Discontinued Hospital, Clinic, or Other [...] as of this encounter (statuses as of 05/11/2024) Active Problems Problem Noted Date Diagnosed Date [...] as of this encounter (statuses as of 05/11/2024) Immunizations Name Administration Dates Next Due HEP A - Hepatitis A (Adult > 18 yrs) 03/10/1998, 10/03/1997 Hepatitis B, 20+ yrs 07/11/1998,03/27/18 99,10/31/1997,10/03,07/11/1997 Pneumococcal Conjugate Vacc, 13 Valent (Prevnar) 11/08/2017 Pneumococcal Polysaccharide PPV23 (Pneumovax) 09/07/2019 Seasonal Influenza, High Dos e, Trivalent, PF, [...] encounter Miscellaneous Notes * Telephone Encounter - Chary Velazquez LPN - 05/11/2024 3:07 PM EST Pt was seen in the office by pulm provider 04/05/24. * Telephone Encounter - Barbra Salazar LPN - 02/22/2024 1:41 PM EST Spoke to patients and she stated patient is already on oxygen upon exercise. However. [facility] already called them to get this set up. They go thru [facility]. They are going to work with [facility] to see what they have now and go with new orders from Dr. Pierre to make sure is what patient needs. * Telephone Encounter - Barbra Salazar LPN - 02/22/2024 9:01 AM EST Left message advising patient to call Barbra back at Dr. Pierre's office. Orders placed thru [facility]. * Telephone Encounter - Chary Velazquez LPN - 02/21/2024 8:29 AM EST ----- Message from Rafael Pierre MD sent at 02/20/2024 12:06 PM EST ----- 6 MWT was POSITIVE for HYPOXIA during AMBULATION. Oxygen therapy for use during exercise ordered. Please ensure processing of Oxygen therapy order. documented in this encounter Plan of Treatment Upcoming Encounters Date Type Department Care Team (Late st Contact Info) Description 05/15/2024 9:30 AM EST Office Visit Pulmonary Medicine, [facility] 132 [facility] [place] [address] Rafael Pierre MD [address] [facility] [place] [address] Health Maintenance Due Date Last Done [...] filedocumented as of this encounter Care Teams Joiners Supervisor Relationship Specialty Start Date End Date Pastora Montilla CRNP [facility] [place] [address] PCP - General Nurse Practitioner 08/07/22 documented as of this encounter
--- OUTSIDE RECORDS SUMMARY | 2024-05-29 17:54 | External Medical Summary | Summary of Care ---
Author Name Unknown Organization [facility] Address [address] [place] [address] Phone [phone] Care Team Providers Care Retail Loan Officer Name Role Phone Pastora Montilla Primary Care Provide r Reason for Visit * Reason Onset Date Comments Med Request 03/01/2024 Encounter Details Date Type Department Care Team (Late st Contact Info) Description 03/01/2024 Telephone Pulmonary Medicine, [facility] [address] Services, Scheduling [address] [place] [address] Med Request Allergies No known active allergiesdocumented as of this encounter (statuses as of 03/06/2024) Medications ASPIRIN 81 MG PO TABS one [...] 50 MCG/ACT Nasal Suspension (Flonase) Administer 1 [place] into each nostril 2 times a day. [...] as of this encounter (statuses as of 03/06/2024) Active Problems Problem Noted Date Diagnosed Date [...] as of this encounter (statuses as of 03/06/2024) Immunizations Name Administration Dates Next Due Diptheria/Tetanus [...] encounter Miscellaneous Notes * Telephone Encounter - Minerva Dawn LPN - 03/06/2024 2:38 PM EST Pt aware form was sent back to the enrollment * Telephone Encounter - Minerva Dawn LPN - 03/03/2024 1:33 PM EST Our office emailed the enrollment paper to sign. Pt will email the paper back to the office * Telephone Encounter - Minerva Dawn LPN - 03/03/2024 9:57 AM EST Waiting for the form to be faxed back to the office for the pt to sign * Telephone Encounter - Rafael Pierre MD - 03/01/2024 3:19 PM EST Patient enrollment form needs to be completed and all forms need faxed back to specialty pharmacy. Team, please process all forms as discussed * Telephone Encounter - Geno Colón OSA - 03/01/2024 9:46 AM EST Pts called and the pharmacy will not fill the [facility] needing to talk with Dr. Pierre about this medication possible prior auth might be needed. But please call [phone] that is the specialty pharmacy team number. documented in this encounter Plan of Treatment Upcoming Encounters Date Type Department Care Team (Late st Contact Info) Description 04/12/2024 8:00 AM EST Office Visit Pulmonary Medicine, [facility] 132 [facility] [place] [phone] Rafael Pierre MD [facility] [place] [address] Health Maintenance Due Date Last Done Comments [...] 18-100 Discontinued 11/03/2012, 11/03/2012, 05/05/2007 Pneumococcal Vaccine: 65+ Years Completed 09/07/2019, 11/08/2017 Influenza Vaccine (FLU shot) Completed 01/14/2024, 12/15/2018, 01/04/2002, Additional history exists HPV (Gardasil) Vaccine Aged Out No lo nger eligible based on patient's age to complete this topic MENINGOCOCCAL (MENACTRA/MENVEO) Aged Out No longer eligible based on patient's age to complete this topic documented as of this encounter Medical Devices Not on filedocumented as of this encounter Care Teams Retail Loan Officer Relationship Specialty Start Date End Date Pastora Montilla CRNP [address] [place] [address] [place] [address] PCP - General Nurse Practitioner 08/07/22 documented as of this encounter
--- OUTSIDE RECORDS SUMMARY | 2024-05-29 17:54 | External Medical Summary | Summary of Care ---
Author Name Unknown Organization [facility] Address [address] [place] [address] Phone [phone] Care Team Providers Care Fuel Testing Technician Name Role Phone Pastora Montilla Primary Care Provide r Reason for Visit * Reason Onset Date Comments Test Results 05/04/2024 Labs Encounter Details Date Type Department Care Team (Late st Contact Info) Description 05/04/2024 Telephone Pulmonary Medicine, [facility] [address] [facility] [address] Rafael Pierre MD [address] [facility] [id number] Test Results (Labs) Allergies No known active allergiesdocumented as of this encounter (statuses as of 05/04/2024) Medications ASPIRIN 81 MG PO TABS one [...] 50 MCG/ACT Nasal Suspension (Flonase) Administer 1 [place] into each nostril 2 times a day. [...] 0.1 % Nasal Solution (Astelin) Administer 1 [place] into nostril in the morning and 1 [place] before bedtime. 30 mL 12 04/07/2024 11:26 AM EST 5 Active Bosentan 62.5 MG Oral Tablet (Tracleer) Take 62.5 mg by mouth in the morning and 62.5 mg before bedtime. 60 Tablet 2 5 07/09/19 25 Active Atorvastatin Calcium 40 MG Oral Tablet (Lipitor) TAKE 1 TABLET BY MOUTH DAILY in the morning 90 Tablet 3 04/21/2024 1:47 PM EST Active Hospital, Clinic, or Other Facility Administered [...] as of this encounter (statuses as of 05/04/2024) Active Problems Problem Noted Date Diagnosed Date [...] as of this encounter (statuses as of 05/04/2024) Immunizations Name Administration Dates Next Due HEP [...] Telephone Encounter - Chary Velazquez LPN - 05/04/2024 11:09 AM EST ----- Message from Rafael Pierre MD sent at 05/04/2024 10:47 AM EST ----- Pirfenidone therapy status Lab test 04/05/2024: AST and ALT within normal limits. Chart note documented in this encounter Plan of Treatment Upcoming Encounters Date Type Department Care Team (Late st Contact Info) Description 05/08/2024 8:45 AM EST Imaging Radiology [address], [place] [address] [place] [phone] 05/15/2024 9:30 AM EST Office Visit Pulmonary Medicine, [facility] [address] [place] [address] Rafael Pierre MD [address] [place] [phone] Health Maintenance Due Date Last Done Comments Depression Screening 1962 Hepatitis C Screening 1968 DTap/Tdap Vaccines (1 - Tdap) 11/01/1994 10/31/1994, 03/15/1994, 03/15/1994 Cologuard 11/22/1995 Fecal Occult Blood Test 11/22/1995 Sigmoidoscopy 11/22/1995 Lipid Panel 07/04/2017 07/04/2012, 06/14, 11/23/2011, Additional history exists Colonoscopy 11/03/2017 11/03/2012, 10/14, 05/05/2007 Colorectal Cancer Screening 11/03/2017 Zoster Vaccines (3 of 3) 11/03/2021 09/08/2021, 09/13 COVID-19 Vaccine (2023- season) 2023 Hepatitis B Vaccine Completed 07/11/1998, [...] filedocumented as of this encounter Care Teams Fuel Testing Technician Relationship Specialty Start Date End Date Pastora Montilla CRNP [address] [place], [place] [address] [address] [address] PCP - General Nurse Practitioner 08/07/22 documented as of this encounter
--- OUTSIDE RECORDS SUMMARY | 2024-05-29 17:54 | External Medical Summary | Summary of Care ---
Author Name Unknown Organization [facility] Address [address] [place] [address] Phone [phone] Care Team Providers Care Cushion Maker Hand Name Role Phone Pastora Montilla Primary Care Provide r Reason for Visit * Reason Comments Outpatient Testing Encounter Details Date Type Department Care Team (Late st Contact Info) Description 05/08/2024 8:50 AM EST Laboratory Laboratory, [facility] [phone] [facility] [address] ILD (interstitial lung disease) (HCC); Chronic cough Allergies No known active allergiesdocumented as of this encounter (statuses as of 05/08/2024) Medications ASPIRIN 81 MG PO TABS one [...] 50 MCG/ACT Nasal Suspension (Flonase) Administer 1 [place] into each nostril 2 times a day. [...] 0.1 % Nasal Solution (Astelin) Administer 1 [place] into nostril in the morning and 1 [place] before bedtime. 30 mL 12 04/07/2024 11:26 [...] as of this encounter (statuses as of 05/08/2024) Active Problems Problem Noted Date Diagnosed Date [...] as of this encounter (statuses as of 05/08/2024) Immunizations Name Administration Dates Next Due HEP [...] EST Office Visit Pulmonary Medicine, [facility] 132 [facility] [place] [address] Rafael Pierre MD [address] [place] [address] Health Maintenance Due Date Last Done [...] Not on filedocumented as of this encounter Procedures Procedure Name Priority Date/Time Associated Diagnosis Comments HEPATIC FUNCTION PANEL Routine 05/08/2024 8:55 AM EST ILD (interstitial lung disease) (HCC) Chronic cough BASIC METABOLIC PANEL Routine 05/08/2024 8:55 AM EST ILD (interstitial lung disease) (HCC) Chronic cough CBC Routine 05/08/2024 8:55 AM EST ILD (interstitial lung disease) (HCC) Chronic cough documented in this encounter Results * BASIC METABOLIC PANEL (05/08/2024 8:55 AM EST) BUN 12 6 - 20 mg/dL 05/08/2024 10:24 AM EST LAB[facility]ORY [facility] 57-10 CREATININE 0.9 0.6 - 1.2 mg/dL 05/08/2024 10:24 AM EST [facility] 57-10 EGFR >90 >=60 mL/min 05/08/2024 10:24 AM EST [facility] 57-10 Comment:eGFR is calculated b ased on the CKD-EPI 2020 equation. SODIUM 138 135 - 146 mmol/L 05/08/2024 10:24 AM EST [facility] 57-10 POTASSIUM 4.2 3.5 - 5.1 mmol/L 05/08/2024 10:24 AM EST [facility] 57-10 CHLORIDE 101 98 - 107 mmol/L 05/08/2024 10:24 AM EST [facility] 57-10 CO2 26 22 - 32 mmol/L 05/08/2024 10:24 AM EST [facility] 57-10 ANION GAP 11 7 - 15 mmol/L 05/08/2024 10:24 AM EST [facility] 57-10 GLUCOSE 97 70 - 120 mg/dL 05/08/2024 10:24 AM EST [facility] 57-10 CALCIUM 9.5 8.4 - 10.2 mg/dL 05/08/2024 10:24 AM EST [facility] 57-10 Blood Venous blood specimen / Unknown Venipuncture / Unknown 05/08/2024 8:55 AM EST 05/08/2024 8:55 AM EST us Rafael Pierre MD LAB BLOOD ORDERABLES F inal Result [facility] 57-10 [address] [place] [address] * (ABNORMAL) CBC (05/08/2024 8:55 AM EST) WBC 9.89 4.00 - 10.80 K/uL 05/08/2024 9:17 AM EST [facility] 57-10 RBC 4.24 4.50 - 5.25 M/uL 05/08/2024 9:17 AM EST [facility] 57-10 HGB 12.8(L) 14.0 - 16.8 g/dL 05/08/2024 9:17 AM EST [facility]10 HCT 39.6(L) 40.0 - 48.4 % 05/08/2024 9:17 AM EST [facility] 57[facility]10 MCV 93.4 82.0 - 99.5 fL 05/08/2024 9:17 AM EST [facility] 57-10 MCH 30.2 27.0 - 34.0 pg 05/08/2024 9:17 AM EST [facility] 57-10 MCHC 32.3 32.0 - 36.0 g/dL 05/08/2024 9:17 AM EST [facility] 57-10 RDW 15.9 11.5 - 15.5 % 05/08/2024 9:17 AM EST [facility] 57-10 PLT 214 140 - 400 K/uL 05/08/2024 9:17 AM EST [facility] 57-10 MPV 10.0 6.6 - 11.1 fL 05/08/2024 9:17 AM EST [facility] 57-10 Blood Venous blood specimen / Unknown Venipuncture / Unknown 05/08/2024 8:55 AM EST 05/08/2024 8:55 AM EST us Rafael Pierre MD LAB BLOOD ORDERABLES F inal Result [facility] [address] [place] [address] * (ABNORMAL) HEPATIC FUNCTION PANEL (05/08/2024 8:55 AM EST) Albumin 3.7(L) 3.8 - 5.0 g/dL 05/08/2024 10:24 AM EST [facility] 57-10 AST 28 10 - 50 U/L 05/08/2024 10:24 AM EST [facility] 57-10 Alkaline Phosphatase 90 35 - 130 U/L 05/08/2024 10:24 AM EST [facility] 57-10 ALT 12 10 - 50 U/L 05/08/2024 10:24 AM EST [facility] 57-10 Bilirubin, Total 0.3 <=1.2 mg/dL 05/08/2024 10:24 AM EST [facility] 57-10 Bilirubin, Direct <0.1 0.0 - 0.3 mg/dL 05/08/2024 10:24 AM EST [facility] 57-10 Protein 8.1 6.0 - 8.3 g/dL 05/08/2024 10:24 AM EST [facility] 57-10 Blood Venous blood specimen / Unknown Venipuncture / Unknown 05/08/2024 8:55 AM EST 05/08/2024 8:55 AM EST us Rafael Pierre MD LAB BLOOD ORDERABLES F inal Result [facility] 57-10 [address] [facility] [place] [address] documented in this encounter Visit Diagnoses Diagnosis ILD (interstitial lung disease) (HCC) Postinflammatory pulmonary fibrosis Chronic cough Cough documented in this encounter Care Teams Cushion Maker Hand Relationship Specialty Start Date End Date Pastora Montilla CRNP [address] [place] [address] [place] [address] PCP - General Nurse Practitioner 08/07/22 documented as of this encounter
--- OUTSIDE RECORDS SUMMARY | 2024-05-29 17:54 | External Medical Summary ---
Author Name Unknown Address Unknown Organization [facility] [address] [place] [id number] Laboratory Report Ordering Provider Test Date Status ELEUTERIO PATEL 04/05/2024 09:45:29 Final Observation Date Value Abnormality Reference (Units ) Status BUN 04/05/2024 09:45:29 13 6-20 (mg/dL) Final Creatinine 04/05/2024 09:45:29 0.8 0.6-1.2 (mg/dL) Final Glomerular filtration rate/1.73 sq M.predicted [Volume Rate/Area] in Serum, Plasma or Blood by Creatinine-based formula (CKD-EPI) 04/05/2024 09:45:29 >90 >=60 (mL/min) Final eGFR is calculated based on the CKD-EPI 2020 equation. Sodium 04/05/2024 09:45:29 136 135-146 (m mol/L) Final Potassium 04/05/2024 09:45:29 4.1 3.5-5.1 (m mol/L) Final Cl 04/05/2024 09:45:29 100 98-107 (mm ol/L) Final CO2 04/05/2024 09:45:29 25 22-32 (mmo l/L) Final Anion gap 04/05/2024 09:45:29 11 7-15 (mmol /L) Final Glucose 04/05/2024 09:45:29 103 70-120 (mg /dL) Final Calcium 04/05/2024 09:45:29 9.0 8.4-10.2 ( mg/dL) Final Performing Location [facility] 57-1 [address] - [address] [place] [id number]
--- OUTSIDE RECORDS SUMMARY | 2024-05-29 17:54 | External Medical Summary ---
Author Name Unknown Address Unknown Organization [facility] [address] [place] [id number] Laboratory Report Ordering Provider Test Date Status ELEUTERIO PATEL 05/08/2024 08:55:58 Final Observation Date Value Abnormality Reference (Units ) Status BUN 05/08/2024 08:55:58 12 6-20 (mg/dL) Final Creatinine 05/08/2024 08:55:58 0.9 0.6-1.2 (mg/dL) Final Glomerular filtration rate/1.73 sq M.predicted [Volume Rate/Area] in Serum, Plasma or Blood by Creatinine-based formula (CKD-EPI) 05/08/2024 08:55:58 >90 >=60 (mL/min) Final eGFR is calculated based on the CKD-EPI 2020 equation. Sodium 05/08/2024 08:55:58 138 135-146 (m mol/L) Final Potassium 05/08/2024 08:55:58 4.2 3.5-5.1 (m mol/L) Final Cl 05/08/2024 08:55:58 101 98-107 (mm ol/L) Final CO2 05/08/2024 08:55:58 26 22-32 (mmo l/L) Final Anion gap 05/08/2024 08:55:58 11 7-15 (mmol /L) Final Glucose 05/08/2024 08:55:58 97 70-120 (mg /dL) Final Calcium 05/08/2024 08:55:58 9.5 8.4-10.2 ( mg/dL) Final Performing Location [facility] [address] [place] [address]
--- OUTSIDE RECORDS SUMMARY | 2024-05-29 17:54 | External Medical Summary ---
Author Name Unknown Address Unknown Organization [facility] [address] - [address] [place] [address] Laboratory Report Ordering Provider Test Date Status ELEUTERIO PATEL 04/05/2024 09:45:29 Final Observation Date Value Abnormality Reference (Units ) Status Albumin 04/05/2024 09:45:29 3.8 3.8-5.0 (g/dL) Final AST (Aspartate aminotransferase) 04/05/2024 09:45:29 26 10-50 (U/L) Final Alk Phos 04/05/2024 09:45:29 93 35-130 (U/L) Final ALT (Alanine aminotransferase) 04/05/2024 09:45:29 16 10-50 (U/L) Final Bilirubin, Total 04/05/2024 09:45:29 0.3 <=1.2 (mg/dL) Final Bilirubin, Direct 04/05/2024 09:45:29 0.1 0.0-0.3 (mg/dL) Final Protein 04/05/2024 09:45:29 8.3 6.0-8.3 (g/dL) Final Performing Location [facility] [address] [place] [address]
--- OUTSIDE RECORDS SUMMARY | 2024-05-29 17:54 | External Medical Summary | Summary of Care ---
Author Name Unknown Organization [facility] Address [address] [place] [address] Phone [phone] Care Team Providers Care Patient Care Coordinator Name Role Phone Pastora Montilla Primary Care Provide r Reason for Visit * Reason Onset Date Comments Appointment 12/15/2023 Encounter Details Date Type Department Care Team (Late st Contact Info) Description 12/15/2023 Telephone Pulmonary Medicine, [facility] 132 [facility] [place] [phone] Rafael Pierre MD [address] [facility] [place] [phone] Appointment Allergies No known active allergiesdocumented as of this encounter (statuses as of 03/15/2024) Medications ASPIRIN 81 MG PO TABS one [...] 50 MCG/ACT Nasal Suspension (Flonase) Administer 1 [place] into each nostril 2 times a day. 48 g 3 02/11/2024 8:31 AM EST 4 Active documented as of this encounter (statuses as of 03/15/2024) Active Problems Problem Noted Date Diagnosed Date [...] as of this encounter (statuses as of 03/15/2024) Immunizations Name Administration Dates Next Due HEP A - Hepatitis A (Adult > 18 yrs) 03/10/1998, 10/03/1997 Hepatitis B, 20+ yrs 07/11/1998,03/27/18 99,10/31/1997,10/03,07/11/1997 Pneumococcal Conjugate Vacc, 13 Valent (Prevnar) 11/08/2017 Pneumococcal Polysaccharide PPV23 (Pneumovax) 09/07/2019 Seasonal Influenza, High Dos e, Trivalent, PF, IM (Fluzone HD) 12/15/2018 TD, Preservative Free 10/31/1994,03/15/1994 Varicella Zoster Vaccine [...] Telephone Encounter - Minerva Dawn LPN - 12/15/2023 10:56 AM EDT ----- Message from Rafael Pierre MD sent at 12/15/2023 9:51 AM EDT ----- Patient needs a follow-up evaluation within next 2 weeks to review results of his recent CT scan chest and discuss additional management options. Also Pulmonary function testing, 6 minute walk test , echo and lab work has been requested which needs to be done prior to office visit. THX JFD documented in this encounter Plan of Treatment Upcoming Encounters Date Type Department Care Team (Late st Contact Info) Description 04/12/2024 8:00 AM EST Office Visit Pulmonary Medicine, [facility] 132 [facility] [address] Rafael Pierre MD [facility] [address] [place] [phone] Health Maintenance Due Date Last Done Comments [...] filedocumented as of this encounter Care Teams Patient Care Coordinator Relationship Specialty Start Date End Date Pastora Montilla CRNP [address] [place] [address] PCP - General Nurse Practitioner 08/07/22 documented as of this encounter
--- OUTSIDE RECORDS SUMMARY | 2024-05-29 17:54 | External Medical Summary | Summary of Care ---
Author Name Unknown Organization [facility] Address [address] [place] [address] Phone [phone] Care Team Providers Care Welder Setter Electron Beam Machine Name Role Phone Pastora Montilla Primary Care Provide r Reason for Visit * Reason Comments Outpatient Testing Encounter Details Date Type Department Care Team (Late st Contact Info) Description 04/05/2024 10:50 AM EST Laboratory Laboratory, [facility] [phone] [facility] [address] ILD (interstitial lung disease) (HCC); Chronic cough [...] Additional Information Patient not taking.Reported on 04/05/2024 [place] Ellipta 100-62.5-25 MCG/ACT Aerosol Powder Breath Activated [...] 50 MCG/ACT Nasal Suspension (Flonase) Administer 1 [place] into each nostril 2 times a day. [...] needed for Cough. 50 Capsule 10 5 Active Azelastine HCl 0.1 % Nasal Solution (Astelin) Administer 1 [place] into nostril in the morning and 1 [place] before bedtime. 30 mL 12 Active Hospital, [...] Description 05/08/2024 8:45 AM EST Imaging Radiology [facility] 132 [facility] [place] [phone] 05/15/2024 9:30 AM EST Office Visit Pulmonary Medicine, [facility] 132 [facility] [place] [address] Rafael Pierre MD [address] [place] [address] Pending Results Name Type Priority Associated Diagnoses Date /Time HEPATIC FUNCTION PANEL Lab Routine ILD (interstitial lung disease) (HCC) Chronic cough 04/05/2024 9:45 AM EST BASIC METABOLIC PANEL Lab Routine ILD (interstitial lung disease) (HCC) Chronic cough 04/05/2024 9:45 AM EST Health Maintenance Due Date Last Done Comments [...] Procedure Name Priority Date/Time Associated Diagnosis Comments CBC Routine 04/05/2024 9:45 AM EST ILD (interstitial lung disease) (HCC) Chronic cough documented in this encounter Results * (ABNORMAL) CBC (04/05/2024 9:45 AM EST) WBC 9.52 4.00 - 10.80 K/uL 04/05/2024 9:55 AM EST [facility] 57-10 RBC 4.18 4.50 - 5.25 M/uL 04/05/2024 9:55 AM EST [facility] 57-10 HGB 12.6(L) 14.0 - 16.8 g/dL 04/05/2024 9:55 AM EST [facility] 57-10 HCT 38.9(L) 40.0 - 48.4 % 04/05/2024 9:55 AM EST [facility] 57-10 MCV 93.1 82.0 - 99.5 fL 04/05/2024 9:55 AM EST [facility] 57-10 MCH 30.1 27.0 - 34.0 pg 04/05/2024 9:55 AM EST [facility]10 MCHC 32.4 32.0 - 36.0 g/dL 04/05/2024 9:55 AM EST [facility] 57-10 RDW 15.1 11.5 - 15.5 % 04/05/2024 9:55 AM EST [facility] 57-10 PLT 199 140 - 400 K/uL 04/05/2024 9:55 AM EST [facility] 57-10 MPV 9.9 6.6 - 11.1 fL 04/05/2024 9:55 AM EST [facility] 57-10 Blood Venous blood specimen / Unknown Venipuncture / Unknown 04/05/2024 9:45 AM EST 04/05/2024 9:45 AM EST Rafael Pierre MD LAB BLOOD ORDERABLES F inal Result [facility] 57-10 132 [facility] [place] [address] documented in this encounter Visit Diagnoses Diagnosis ILD (interstitial lung disease) (HCC) Postinflammatory pulmonary fibrosis Chronic cough Cough documented in this encounter Care Teams Welder Setter Electron Beam Machine Relationship Specialty Start Date End Date Pastora Montilla CRNP [address] [facility] [place] [address] PCP - General Nurse Practitioner 08/07/22 documented as of this encounter
--- OUTSIDE RECORDS SUMMARY | 2024-05-29 17:54 | External Medical Summary | Summary of Care ---
Author Name Unknown Organization [facility] Address [address] [place] [address] Phone [phone] Care Team Providers Care Parquetry Floor Layer Name Role Phone Pastora Montilla Primary Care Provide r Reason for Visit * Reason Onset Date Comments Medication Problem 03/16/2024 Bosentan-ator vastatin Encounter Details Date Type Department Care Team (Late st Contact Info) Description 03/16/2024 Telephone Pulmonary Medicine [facility] [address] [place] [phone] Rafael Pierre MD [address] [place] [id number] Medication Problem (Bosentan-atorvastatin ) Allergies No known active allergiesdocumented as of this encounter (statuses as of 03/20/2024) Medications ASPIRIN 81 MG PO TABS one [...] 50 MCG/ACT Nasal Suspension (Flonase) Administer 1 [place] into each nostril 2 times a day. [...] as of this encounter (statuses as of 03/20/2024) Active Problems Problem Noted Date Diagnosed Date [...] as of this encounter (statuses as of 03/20/2024) Immunizations Name Administration Dates Next Due Diptheria/Tetanus [...] Telephone Encounter - Chary Velazquez LPN - 03/20/2024 8:39 AM EST Pt notified via detailed message left on his personal vm. He was advised to call if he has any questions. [facility] Pharm[facility] notified. * Telephone Encounter - Chary Velazquez LPN - 03/20/2024 8:38 AM EST Okay to stop atorvastatin while patient starts bosentan therapy. Sincerely Dr Pierre * Telephone Encounter - Barbra Salazar LPN - 03/16/2024 9:25 AM EST [facility] speciality pharmacy Has question About these two medications NEED TO CLARIFY DDI BETWEEN BOSENTAN AND ATORVASTATIN documented in this encounter Plan of Treatment Upcoming Encounters Date Type Department Care Team (Late st Contact Info) Description 04/12/2024 8:00 AM EST Office Visit Pulmonary Medicine, [facility] 132 [place] [address] Rafael Pierre MD [address] [facility] [place] [address] Health Maintenance Due [...] filedocumented as of this encounter Care Teams Parquetry Floor Layer Relationship Specialty Start Date End Date Pastora Montilla CRNP [address] [place], [place] [address] [address] PCP - General Nurse Practitioner 08/07/22 documented as of this encounter
--- OUTSIDE RECORDS SUMMARY | 2024-05-29 17:55 | External Medical Summary | Summary of Care ---
Author Name Unknown Organization [facility] Address [address] [place] [address] Phone [phone] Care Team Providers Care Incident Commander Name Role Phone Pastora Montilla Primary Care Provide r Reason for Visit * Reason Onset Date Comments Durable Medical Equipment 03/03/2024 Encounter Details Date Type Department Care Team (Late st Contact Info) Description 03/03/2024 Telephone Pulmonary Medicine, [facility] 132 [facility] [place] [address] Rafael Pierre MD [address] [facility] [place] [phone] Durable Medical Equipment Allergies No known active allergiesdocumented as of this encounter (statuses as of 03/03/2024) Medications ASPIRIN 81 MG PO TABS one [...] 50 MCG/ACT Nasal Suspension (Flonase) Administer 1 [place] into each nostril 2 times a [...] as of this encounter (statuses as of 03/03/2024) Active Problems Problem Noted Date Diagnosed Date [...] as of this encounter (statuses as of 03/03/2024) Immunizations Name Administration Dates Next Due HEP [...] encounter Miscellaneous Notes * Telephone Encounter - Sangeetha Edwards OSA - 03/03/2024 11:01 AM EST [facility] called requesting any notes or orders that mention the usage of oxygen for oxygen supplies. He is requesting it to be faxed to [phone]. documented in this encounter Plan of Treatment Upcoming Encounters Date Type Department Care Team (Late st Contact Info) Description 04/12/2024 8:00 AM EST Office Visit Pulmonary Medicine, [facility] 132 [facility] [place] [address] Rafael Pierre MD [address] [place] [...] filedocumented as of this encounter Care Teams Incident Commander Relationship Specialty Start Date End Date Pastora Montilla CRNP [address] [place] [address] PCP - General Nurse Practitioner 08/07/22 documented as of this encounter
--- OUTSIDE RECORDS SUMMARY | 2024-05-29 17:55 | External Medical Summary | Summary of Care ---
Author Name Unknown Organization [facility] Address [address] [place] [address] Phone [phone] Care Team Providers Care Log Cut Off Sawyer Name Role Phone Pastora Montilla Primary Care Provide r Reason for Visit * Reason Onset Date Comments Med Request 03/01/2024 Encounter Details Date Type Department Care Team (Late st Contact Info) Description 03/01/2024 Telephone Pulmonary Medicine, [facility] [address] Services, Scheduling [address] [place] [address] Med Request Allergies No known active allergiesdocumented [...] 50 MCG/ACT Nasal Suspension (Flonase) Administer 1 [place] into each nostril 2 times a day. [...] 03/03/2024) Immunizations Name Administration Dates Next Due Diptheria/Tetanus [...] [facility] and [facility] are needing to talk with Dr. Pierre about this medication possible prior auth might be needed. But please call [phone] that is the specialty pharmacy team number. documented in this encounter Plan of Treatment Upcoming Encounters Date Type Department Care Team (Late st Contact Info) Description 04/12/2024 8:00 AM EST Office Visit Pulmonary Medicine, [facility] 132 [facility] [place] [address] Rafael Pierre MD [address] [facility] [place] [address] Health Maintenance Due [...] filedocumented as of this encounter Care Teams Log Cut Off Sawyer Relationship Specialty Start Date End Date Pastora Montilla CRNP [address] [place] [address] [place] [address] PCP - General Nurse Practitioner 08/07/22 documented as of this encounter
--- OUTSIDE RECORDS SUMMARY | 2024-05-29 17:55 | External Medical Summary | Summary of Care ---
Author Name Unknown Organization [facility] Address [address] [place] [address] Phone [phone] Care Team Providers Care Agency Appointments Supervisor Name Role Phone Pastora Montilla Primary Care Provide r Reason for Visit * Reason Onset Date Comments Advice 03/06/2024 Encounter Details Date Type Department Care Team (Late st Contact Info) Description 03/06/2024 Telephone Access Center, [address] *DO NOT REMOVE THIS DEPARTMENT* [place] [address] Services, Scheduling [address] [place] [address] Advice (/) Allergies No known active allergiesdocumented as of [...] 50 MCG/ACT Nasal Suspension (Flonase) Administer 1 [place] into each nostril 2 times a day. [...] 03/06/2024) Immunizations Name Administration Dates Next Due HEP [...] encounter Miscellaneous Notes * Telephone Encounter - Ruthie Yanez OSA - 03/06/2024 9:52 AM EST is calling and wanting to speak with Minerva Dawn Please advise. documented in this encounter Plan of Treatment Upcoming Encounters Date Type Department Care Team (Late st Contact Info) Description 04/12/2024 8:00 AM EST Office Visit Pulmonary Medicine, [facility] 132 [facility] [place] [address] Rafael Pierre MD [address] [facility] [place] [address] Health Maintenance Due Date Last Done [...] filedocumented as of this encounter Care Teams Agency Appointments Supervisor Relationship Specialty Start Date End Date Pastora Montilla CRNP [address] [place] [address] PCP - General Nurse Practitioner 08/07/22 documented as of this encounter
--- OUTSIDE RECORDS SUMMARY | 2024-05-29 17:55 | External Medical Summary | Summary of Care ---
Author Name Unknown Organization [facility] Address [address] [place] [address] Phone [phone] Care Team Providers Care Dynamometer Repairer Name Role Phone Pastora Montilla Primary Care Provide r Reason for Visit * Reason Onset Date Comments Med Request 03/01/2024 Encounter Details Date Type Department Care Team (Late st Contact Info) Description 03/01/2024 Telephone Pulmonary Medicine, [facility] [address] Services, Scheduling [address] [place] [address] Med Request Allergies No known active allergiesdocumented [...] 50 MCG/ACT Nasal Suspension (Flonase) Administer 1 [place] into each nostril 2 times a day. [...] [facility] and they are needing to talk with Dr. Pierre about this medication possible prior auth might be needed. But please call [phone] that is the specialty pharmacy team number. documented in this encounter Plan of Treatment Upcoming Encounters Date Type Department Care Team (Late st Contact Info) Description 04/12/2024 8:00 AM EST Office Visit Pulmonary Medicine, [facility] [address] [place] [id number] Rafael Pierre MD [address] [place] [phone] Health Maintenance Due Date Last Done Comments [...] filedocumented as of this encounter Care Teams Dynamometer Repairer Relationship Specialty Start Date End Date Pastora Montilla CRNP [address] [place] [address] [place] [address] PCP - General Nurse Practitioner 08/07/22 documented as of this encounter
--- OUTSIDE RECORDS SUMMARY | 2024-05-29 17:55 | External Medical Summary | Summary of Care ---
Author Name Unknown Organization [facility] Address [address] [place] [address] Phone [phone] Care Team Providers Care Reel Blade Bender Furnace Tender Name Role Phone Pastora Montilla Primary Care Provide r Reason for Visit * Reason Onset Date Comments Durable Medical Equipment 03/03/2024 Encounter Details Date Type Department Care Team (Late st Contact Info) Description 03/03/2024 Telephone Pulmonary Medicine, [facility] 132 [facility] [place] [address] Rafael Pierre MD [address] [facility] [place] [phone] Durable Medical Equipment Allergies No known active [...] 50 MCG/ACT Nasal Suspension (Flonase) Administer 1 [place] into each nostril 2 times a day. [...] Encounter - Minerva Dawn LPN - 03/03/2024 11:18 AM EST Last ov note has been faxed * Telephone Encounter - Sangeetha Edwards OSA - 03/03/2024 11:01 AM EST [facility] from [facility] called requesting any notes or orders that mention the usage of oxygen for oxygen supplies. He is requesting it to be faxed to [phone]. documented in this encounter Plan of Treatment Upcoming Encounters Date Type Department Care Team (Late st Contact Info) Description 04/12/2024 8:00 AM EST Office Visit Pulmonary Medicine, [facility] 132 [facility] [place] [address] Rafael Pierre MD [address] [place] [phone] Health Maintenance Due Date Last Done Comments [...] filedocumented as of this encounter Care Teams Reel Blade Bender Furnace Tender Relationship Specialty Start Date End Date Pastora Montilla CRNP [address] [place], [place] [address] [address] [phone] PCP - General Nurse Practitioner 08/07/22 documented as of this encounter
--- OUTSIDE RECORDS SUMMARY | 2024-05-29 17:55 | External Medical Summary | Summary of Care ---
Author Name Unknown Organization [facility] Address [address] [place] [address] Phone [phone] Care Team Providers Care Gravel Weigher Name Role Phone Pastora Montilla Primary Care Provide r Reason for Visit * Reason Onset Date Comments Advice 03/06/2024 Encounter Details Date Type Department Care Team (Late st Contact Info) Description 03/06/2024 Telephone Access Center, [address] *DO NOT REMOVE THIS DEPARTMENT* [place] [address] Services, Scheduling [address] [place] [address] Advice (/) Allergies No known active allergiesdocumented [...] 50 MCG/ACT Nasal Suspension (Flonase) Administer 1 [place] into each nostril 2 times a day. [...] Encounter - Minerva Dawn LPN - 03/06/2024 2:37 PM EST Pt's aware the form was received and faxed back to the enrollment team * Telephone Encounter - Ruthie Yanez OSA - 03/06/2024 9:52 AM EST is calling and wanting to speak with Minerva Dawn Please advise. documented in this encounter Plan of Treatment Upcoming Encounters Date Type Department Care Team (Late st Contact Info) Description 04/12/2024 8:00 AM EST Office Visit Pulmonary Medicine, [facility] [address] [place] [address] Rafael [...] filedocumented as of this encounter Care Teams Gravel Weigher Relationship Specialty Start Date End Date Pastora Montilla CRNP [address] [place] [address] [place] [phone] PCP - General Nurse Practitioner 08/07/22 documented as of this encounter
--- OUTSIDE RECORDS SUMMARY | 2024-05-29 17:56 | External Medical Summary | Summary of Care ---
Author Name Unknown Organization [facility] Address [address] [place] [address] Phone [phone] Care Team Providers Care Furnace Caretaker Name Role Phone Pastora Montilla Primary Care Provide r Reason for Visit * Reason Onset Date Comments Med Request 03/01/2024 Encounter Details Date Type Department Care Team (Late st Contact Info) Description 03/01/2024 Telephone Pulmonary Medicine, [facility] [address] Services, Scheduling [address] [place] [address] Med Request Allergies No known active allergiesdocumented as of this encounter (statuses as of 03/01/2024) Medications ASPIRIN 81 MG PO TABS one [...] 50 MCG/ACT Nasal Suspension (Flonase) Administer 1 [place] into each nostril 2 times a day. [...] as of this encounter (statuses as of 03/01/2024) Active Problems Problem Noted Date Diagnosed Date [...] as of this encounter (statuses as of 03/01/2024) Immunizations Name Administration Dates Next Due Diptheria/Tetanus [...] [facility] fill [facility] and they are needing to talk with Dr. Pierre about this medication possible prior auth might be needed. But please call [phone] that is the specialty pharmacy team number. documented in this encounter Plan of Treatment Upcoming Encounters Date Type Department Care Team (Late st Contact Info) Description 04/12/2024 8:00 AM EST Office Visit Pulmonary Medicine, [facility] 132 [facility] [place] [address] Rafael Pierre MD [address] [place] [phone] Health Maintenance Due Date Last Done Comments [...] filedocumented as of this encounter Care Teams Furnace Caretaker Relationship Specialty Start Date End Date Pastora Montilla CRNP [address] [place] [address] [place] [address] PCP - General Nurse Practitioner 08/07/22 documented as of this encounter
--- OUTSIDE RECORDS SUMMARY | 2024-05-29 17:56 | External Medical Summary | Summary of Care ---
Author Name Unknown Organization [facility] Address [address] [place] [address] Phone [phone] Care Team Providers Care Hardwood Floor Refinisher Name Role Phone Pastora Montilla Primary Care Provide r Reason for Visit * Reason Onset Date Comments Medication Refill 02/15/2024 Encounter Details Date Type Department Care Team (Late st Contact Info) Description 02/15/2024 Refill Pulmonary Function Lab, [facility] [address] [facility] [place] [address] Rafael Pierre MD [address] [facility] [place] [phone] Allergies No known active allergiesdocumented as of this encounter (statuses as of 02/15/2024) Medications ASPIRIN 81 MG PO TABS one [...] 50 MCG/ACT Nasal Suspension (Flonase) Administer 1 [place] into each nostril 2 times a day. 48 g 3 02/11/2024 8:31 AM EST 4 Active Ipratropium-Albu terol 0.5-2.5 (3) MG/3ML Inhalation Solution (Duoneb) Inhale 3 mL by mouth every 6 hours as needed. Active Pirfenidone 267 MG Oral Capsule (Esbriet) Take 1 Capsule by mouth in the morning and 1 Capsule at noon and 1 Capsule before bedtime. 90 Capsule 2 4 05/07/19 Active Bosentan 62.5 MG Oral Tablet (Tracleer) Take 62.5 mg by mouth in the morning and 62.5 mg before bedtime. 60 Tablet 2 4 05/07/19 25 Active Benzonatate 200 MG Oral Capsule Take 1 Capsule by mouth 3 times a day as needed for Cough. 20 Capsule 02/09/2024 1:13 PM EST Active Pirfenidone 267 MG Oral Capsule (Esbriet) Take 1 Capsule by mouth 3 times a day for 7 days, THEN 2 Capsules 3 times a day for 7 days, THEN 3 Capsules 3 times a day for 7 days. 126 Capsule 4 03/07/20 Active Hospital, Clinic, or Other Facility Administered [...] as of this encounter (statuses as of 02/15/2024) Active Problems Problem Noted Date Diagnosed Date [...] as of this encounter (statuses as of 02/15/2024) Immunizations Name Administration Dates Next Due Diptheria/Tetanus (Adult) 03/15/1994 HEP A - Hepatitis A (Adult > 18 yrs) 03/10/1998, 10/03/1997 Hepatitis A Vaccine 03/10/1998,10/03/1997 Hepatitis B Vaccine 03/27/1998,10/31/1997,1997 Hepatitis B, 20+ yrs 07/11/1998,03/27/18 99,10/31/1997,10/03,07/11/1997 Pneumococcal Conjugate Vacc, 13 Valent (Prevnar) 11/08/2017 Pneumococcal Polysaccharide PPV23 (Pneumovax) 09/07/2019 Seasonal Influenza Vac., MDV , IM, 0.5 [...] encounter Miscellaneous Notes * Telephone Encounter - Shahab Gerard RPh - 02/15/2024 8:40 AM EST Pirfenidone starter dose per encounter Shahab Gerard, PharmD [facility] 02/15/2024, 8:42 AM documented in this encounter Plan of Treatment Upcoming Encounters Date Type Department Care Team (Late st Contact Info) Description 04/12/2024 8:00 AM EST Office Visit Pulmonary Medicine, [address] [place] [address] Rafael Pierre MD [address] [facility] [place] [address] Health Maintenance Due Date Last Done Comments [...] filedocumented as of this encounter Care Teams Hardwood Floor Refinisher Relationship Specialty Start Date End Date Pastora Montilla CRNP [address] [place] [address] [place] [address] PCP - General Nurse Practitioner 08/07/22 documented as of this encounter
--- OUTSIDE RECORDS SUMMARY | 2024-05-29 17:56 | External Medical Summary | Summary of Care ---
Author Name Unknown Organization [facility] Address [address] [place] [facility] [address] Phone [phone] Care Team Providers Care Heddle Machine Operator Name Role Phone Pastora Montilla Primary Care Provide r Encounter Details Date Type Department Care Team (Late st Contact Info) Description 02/20/2024 Orders Only Pulmonary Function Lab, [facility] 132 [facility] [place] [address] Rafael Pierre MD [address] [facility] [place] [address] Chronic respiratory failure with hypoxia (HCC)* Allergies No known active allergiesdocumented as of this encounter (statuses as of 02/20/2024) Medications ASPIRIN 81 MG PO TABS one [...] 50 MCG/ACT Nasal Suspension (Flonase) Administer 1 [place] into each nostril 2 times a day. 48 g 3 02/11/2024 8:31 AM EST Active Ipratropium-Albu terol 0.5-2.5 (3) MG/3ML Inhalation Solution (Duoneb) Inhale 3 mL by mouth every 6 hours as needed. Active Pirfenidone 267 MG Oral Capsule (Esbriet) Take 1 Capsule by mouth in the morning and 1 Capsule at noon and 1 Capsule before bedtime. 90 Capsule 2 02/18/2024 3:38 PM EST 4 05/07/19 25 Active Bosentan 62.5 MG Oral Tablet [...] or cough 20.1 g 2 4 Active Hospital, Clinic, or Other [...] as of this encounter (statuses as of 02/20/2024) Active Problems Problem Noted Date Diagnosed Date [...] as of this encounter (statuses as of 02/20/2024) Immunizations Name Administration Dates Next Due HEP [...] 8:00 AM EST Office Visit Pulmonary Medicine, [facility] 132 [facility] [place] [phone] Rafael Pierre MD [address] [place] [address] Health Maintenance Due Date [...] as of this encounter Visit Diagnoses Diagnosis Chronic respiratory failure with hypoxia (HCC)- Primary Chronic respiratory failure documented in this encounter Care Teams Heddle Machine Operator Relationship Specialty Start Date End Date Pastora Montilla CRNP [address] [place] [address] PCP - General Nurse Practitioner 08/07/22 documented as of this encounter
--- OUTSIDE RECORDS SUMMARY | 2024-05-29 17:56 | External Medical Summary | Summary of Care ---
Author Name Unknown Organization [facility] Address [address] [facility] [place] [address] Phone [phone] Care Team Providers Care Rn Women Services Name Role Phone Pastora Montilla Primary Care Provide r Encounter Details Date Type Department Care Team (Late st Contact Info) Description 01/24/2024 Result Scan Unspecified Department <No scans attached> Allergies No known active allergiesdocumented as of [...] 50 MCG/ACT Nasal Suspension (Flonase) Administer 1 [place] into each nostril 2 times a day. [...] 02/15/2024) Immunizations Name Administration Dates Next Due HEP [...] 8:00 AM EST Office Visit Pulmonary Medicine, [facility] 132 [facility] [place] [address] Rafael Pierre MD [address] [facility] [place] [address] Health Maintenance Due Date Last [...] Procedure Name Priority Date/Time Associated Diagnosis Comments ECHOCARDIOLOGY SCANNED RESULT 01/24/2024 documented in this encounter Results * ECHOCARDIOLOGY SCANNED RESULT (01/24/2024) 01/24/2024 us No Physician Data Unknown ECHOCARDIOLOGY Final Result documented in this encounter Care Teams Rn Women Services Relationship Specialty Start Date End Date Pastora Montilla CRNP [address] [place], [place] [address] [address] [address] PCP - General Nurse Practitioner 08/07/22 documented as of this encounter
--- OUTSIDE RECORDS SUMMARY | 2024-05-29 17:56 | External Medical Summary | Summary of Care ---
Author Name Unknown Organization [facility] Address [address] [place] [address] Phone [phone] Care Team Providers Care Seo Consultant Name Role Phone Pastora Montilla Primary Care Provide r Reason for Visit * Reason Onset Date Comments Precert In Process 02/07/2024 25 Symone Parra Pirfenidone Encounter Details Date Type Department Care Team (Late st Contact Info) Description 02/07/2024 Telephone Pulmonary Medicine Sherry Duenas [address] [place] [address] Rafael Pierre MD [address] [place] [phone] Precert In Process (25 Symone Parra Pi... Allergies No known active allergiesdocumented as of this encounter (statuses as of 02/08/2024) Medications ASPIRIN 81 MG PO TABS one [...] 50 MCG/ACT Nasal Suspension (Flonase) Administer 1 [place] into each nostril 2 times a day. 48 g 3 11/12/2023 10:42 AM EDT 4 Active Ipratropium-Albu terol 0.5-2.5 (3) MG/3ML Inhalation Solution (Duoneb) Inhale 3 mL by mouth every 6 hours as needed. Active Pirfenidone 267 MG Oral Capsule (Esbriet) Take 1 Capsule by mouth in the morning and 1 Capsule at noon and 1 Capsule before bedtime. 90 Capsule 2 4 05/07/19 25 Active Bosentan 62.5 MG Oral Tablet (Tracleer) Take 62.5 mg by mouth in the morning and 62.5 mg before bedtime. 60 Tablet 2 4 05/07/19 25 Active Benzonatate 200 MG Oral Capsule Take 1 Capsule by mouth 3 times a day as needed for Cough. 20 Capsule 4 Active Hospital, Clinic, or Other Facility [...] as of this encounter (statuses as of 02/08/2024) Active Problems Problem Noted Date Diagnosed Date [...] as of this encounter (statuses as of 02/08/2024) Immunizations Name Administration Dates Next Due HEP [...] Telephone Encounter - Rafael Pierre MD - 02/08/2024 5:54 PM EST Note was updated as advised. * Telephone Encounter - Chary Velazquez LPN - 02/08/2024 3:30 PM EST In order to get the order for Pirfenidone to get approved, note will need the following: "Medical record documentation that the patient was taught pulmonary rehabilitation techniques." Please add to note. * Telephone Encounter - Symone Manuel etiologist - 02/08/2024 1:02 PM EST Patient's plan is requesting the following information: Medical record documentation that the patient was taught pulmonary rehabilitation techniques. Please reply to P [id number] Thank you, Symone Manuel Medication Sleeve Ironer [facility] 02/08/2024,1:03 PM * Telephone Encounter - Keya Pulido CPhT - 02/07/2024 11:38 AM EST New or re-auth: New Patient Juanjo Turner needs a prior authorization for a medication through their [facility] insurance. Medication: Pirfenidone Formulation: 267mg cap Dosage: Take 1 Capsule by mouth in the morning and 1 Capsule at noon and 1 Capsule before bedtime. ID: [id number] [id number] PCN:[id number] Phone: [employer] ship date is new start. Thank you very much, Keya Pulido CPhT Automotive Mechanical Engineer [facility] 02/07/2024,11:46 AM documented in this encounter Plan of Treatment Upcoming Encounters Date Type Department Care Team (Late st Contact Info) Description 04/12/2024 8:00 AM EST Office Visit Pulmonary Medicine, [facility] 132 [facility] [place] [address] Rafael Pierre MD [address] [facility] [place] [address] Health Maintenance Due Date Last [...] filedocumented as of this encounter Care Teams Seo Consultant Relationship Specialty Start Date End Date Pastora Montilla CRNP [address] [place] [address] PCP - General Nurse Practitioner 08/07/22 documented as of this encounter
--- OUTSIDE RECORDS SUMMARY | 2024-05-29 17:56 | External Medical Summary | Summary of Care ---
Author Name Unknown Organization [facility] Address [address] [place] [address] Phone [phone] Care Team Providers Care Shot Examiner Name Role Phone Pastora Montilla Primary Care Provide r Reason for Referral * Evaluate & Treat - Unlimited Visits (Within 3 days (urgent)) - Authorized Specialty Diagnoses / Procedures Referred By Naomy [email or web address] Referred To Contact Pharmacist / Pharmacy Diagnoses Severe pulmonary hypertension (HCC) Idiopathic pulmonary fibrosis (HCC) Rafael Pierre MD [address] [place] [address] Phone: tel: fax: Referral ID Status Reason Start Date Expiration Date Visits Requested Visits Authorized [id number] Authorized Specialty Services Required 4 08/05/2024 99 99 Question Answer Referral Priority Within 3 days (urgent) Where should this appointment be scheduled? [facility] Referring Provider Role: Specialist Specialty: Pulm Reason for Referral: ILD - ILD and PH Comments Pharmacist Medication Therapy Management: Minimum frequency patient should be seen in person for medication management: as appropriate per clinical condition and patient status By my signature, I understand that my patient Juanjo Turner will have his medication therapy managed by the [facility]ication [facility] ([facility]) per established policies, procedures, and protocols. I also certify that this referral may serve as an initiation of service for the management of drug therapy in the above noted patient. [facility] providers will be responsible for scheduling patient visits, obtaining appropriate laboratory studies, and adjusting medication management therapy per patient's need, in addition to those roles spelled out in the clinic policy, procedures, and drug management protocols. I understand that the service provided by the [facility] is voluntary and have informed patient that they can refuse the service at their discretion. I am aware that the [facility] will provide me with a copy of the patient encounter via my [employer]. I authorize the [facility] to carry out these activities on my behalf. I consider this program to be a necessary part of the patient's medical care. Rafael Pierre MD Reason for Visit * Reason Comments Follow Up Encounter Details Date Type Department Care Team (Late st Contact Info) Description 02/07/2024 8:40 AM EST Office Visit Pulmonary Medicine, [address] [place] [phone] Rafael Pierre MD [facility] [address] [facility] [place] [address] Severe pulmonary hypertension (HCC)*; Idiopathic pulmonary fibrosis (HCC) Allergies No known active allergiesdocumented as of this encounter (statuses as of 02/22/2024) Medications ASPIRIN 81 MG PO TABS one [...] 50 MCG/ACT Nasal Suspension (Flonase) Administer 1 [place] into each nostril 2 times a day. 48 g 3 02/11/2024 8:31 AM EST 4 Active Ipratropium-Alb uterol 0.5-2.5 (3) MG/3ML Inhalation Solution (Duoneb) Inhale 3 mL by mouth every 6 hours as needed. Active Pirfenidone 267 MG Oral Capsule (Esbriet) Take 1 Capsule by mouth in the morning and 1 Capsule at noon and 1 Capsule before bedtime. 90 Capsule 2 02/18/2024 3:38 PM EST 4 025 Active Bosentan 62.5 MG Oral Tablet (Tracleer) Take 62.5 mg by mouth in the morning and 62.5 mg before bedtime. 60 Tablet 2 4 025 Active Benzonatate 200 MG Oral Capsule Take 1 Capsule by mouth 3 times a day as needed for Cough. 20 Capsule 02/09/2024 1:13 PM EST Active Benzonatate 200 MG Oral Capsule Take 1 Capsule by mouth 3 times a day as needed for Cough. 20 Capsule 4 024 Discontin ued(Refil l) predniSONE 5 MG Oral Tablet (Deltasone) Take 4 tab Daily for 5 Days Then 3 Tab daily for 10 days Then 2 tab daily for 10 days Then 1 tabe daily for 10 days and STOP 80 Tablet 4 024 Discontin ued(Medic ation List Clean Up) Hospital, Clinic, or Other Facility Administered Medication [...] as of this encounter (statuses as of 02/22/2024) Active Problems Problem Noted Date Diagnosed Date [...] as of this encounter (statuses as of 02/22/2024) Immunizations Name Administration Dates Next Due Diptheria/Tetanus (Adult) 03/15/1994 HEP A - Hepatitis A (Adult > 18 yrs) 03/10/1998, 10/03/1997 Hepatitis A Vaccine 03/10/1998,10/03/1997 Hepatitis B Vaccine 03/27/1998,10/31/1997,1997 Hepatitis B, 20+ yrs 07/11/1998,03/27/18 99,10/31/1997,10/03,07/11/1997 Pneumococcal Conjugate Vacc, 13 Valent (Prevnar) 11/08/2017 Pneumococcal Polysaccharide PPV23 (Pneumovax) 09/07/2019 RSV Vac., Bivalent, Perfusio n F, Pf,0.5 Ml (Abrysvo) 02/22/2024 Seasonal Influenza Vac., MDV , IM, [...] Sign Reading Time Taken Comments Blood Pressure 112/76 02/07/2024 8:29 AM EST Pulse 61 02/07/2024 8:29 AM EST Temperature 35.8 C (96.5 F) 02/07/2024 8:29 AM ES T Respiratory Rate 20 02/07/2024 8:29 AM EST Oxygen Saturation 87% 02/07/2024 8:31 AM EST ra, amb Inhaled Oxygen Concentration - - Weight 90.9 kg (200 lb 6.4 oz) 02/07/2024 8:29 A M EST Height 174 cm (5' 8.5") 02/07/2024 8:29 AM EST Body Mass Index 30.03 02/07/2024 8:29 AM EST documented in this encounter Progress Notes * Rafael Pierre MD - 02/07/2024 8:52 AM EST Images from the original note were not included. 02/07/2024 Pulmonary Medicine, [facility] [address] [place] [id number] Juanjo Tavia Turner 1950 male 73 year old Attending Physician Documentation: 73-year-old male Lifetime nonsmoker Persistent dry cough episodes ILD-IPF Radiologic evidence of ILD-IPF L > R Severe pulmonary hypertension, PA pressure 60 mmHg, Echocardiogram [facility] 10/2023 Hypoxic respiratory failure, 3 LPM nocturnal and 8 LPM oxygen during ambulation Hx of Ca Prostate, s/p prostatcetomy PFTs October 2023 with moderate restrictive ventilatory pattern. GERD on maintenance acid suppression Lifelong history of farm/ Barn work Patient describes episodic dry cough and shortness of breath on minimal exertion. HRCT repeat re eval ILD/HP in 4 weeks after prednisone trial completed, shows Worsening ILD +ve 6 MWT, 8 L with activity and 3 LPM at night Compliant with DuoNeb nebulizer therapy ? HP Physical examination significant for Class 2 throat, adequate air entry, scattered coarse rales without wheezing or dullness, regular cardiac rhythm, no evidence of volume overload and nonlateralizing Neuro examination. Category III Pulm HTN with progressive ILD Add perfenidone 267 mg TID and bosentaan 62,5 BID MTM referral placed 3 LPM QHS and 8 LPM with activity continue bronchodilator regimen to DuoNeb nebulizer RX ordered as maintenance therapy Continue with DuoNeb (cost issues) as maintenance bronchodilator regimen Evyon ciro refilled 8 LPM POC ordered for activity use, 3 LPM for night time Patient was educated on pulmonary rehabilitation techniques and availability of cardiopulmonary rehab Follow-up 8 weeks to review response to ILD-IPF therapy and reassess symptoms status Follow Up: Return in about 2 months (around 04/08/2024) for Clinic Visit. | For: Clinic Visit | Check-out note: 73-year-old male Lifetime nonsmoker Persistent dry cough episodes ILD-IPF Radiologic evidence of ILD-IPF L > R Severe pulmonary hypertension, PA pressure 60 mmHg, Echocardiogram [facility] 10/2023 Hypoxic respiratory failure, 3 LPM nocturnal and 8 LPM oxygen during ambulation Hx of Ca Prostate, s/p prostatcetomy PFTs October 2023 with moderate restrictive ventilatory pattern. GERD on maintenance acid suppression Lifelong history of farm/ Barn work Patient describes episodic dry cough and short Follow Up: Return in about 2 months (around 04/08/2024) for Clinic Visit. | For: Clinic Visit | Check-out note: ness of breath on minimal exertion. HRCT repeat re eval ILD/HP in 4 weeks after prednisone trial completed, shows Worsening ILD +ve 6 MWT, 8 L with activity and 3 LPM at night Compliant with DuoNeb nebulizer therapy ? HP Category III Pulm HTN with progressive ILD Add perfenidone 267 mg TID and bosentaan 62,5 BID MTM referral placed 3 LPM QHS and 8 LPM with activity continue bronchodilator regimen to DuoNeb nebulizer RX ordered as maintenance therapy Continue with DuoNeb (cost issues) as m Follow Up: Return in about 2 months (around 04/08/2024) for Clinic Visit. | For: Clinic Visit | Check-out note: aintenance bronchodilator regimen Tessalon perles refilled 8 LPM POC ordered for activity use, 3 LPM for night time Follow-up 8 weeks to review response to ILD-IPF therapy and reassess symptoms status Rafael Pierre MD Data review: Following reports, and data as outlined below was personally reviewed and interpreted by myself. 6 MWT 01/31/2024: PATIENT COMPLETED 6 MINUTE [...] Chief Complaint Patient presents with Follow Up HPI: Nursing Notes: Marcus Chary PyleLALI 02/07/24 0837 Addendum Pt is here for f/u ILD. MMRC Dyspnea Scale = 2 (On level ground, I walk slower than people of the same age because of breathlessness or have to stop for breath when walking at my own) Interm History/Respiratory Symptoms Cough: occasional, clear phlegm Hemoptysis: no Sinus Symptoms: not currently, uses Flonase Hospitalizations: no ED Trips: no Triggers: scents, smoke, coming from the cold weather into the warm Nocturnal: occasional cough, sleeps with head elevated CPAP/BiPAP/O2: O2 2LPM at night and as needed with exertion DME Supplier: Sherry [employer] Flu Vaccine: 2023 Pneumovax: 2020 Prevnar: 2018 COVID 19: x 3 Objective Filed Vitals: 02/07/24 0829 02/07/24 0831 BP: 112/76 Pulse: 61 Resp: 20 Temp: 35.8 C (96.5 F) TempSrc: Tympanic SpO2: 89% 87% Weight: 90.9 kg (200 lb 6.4 oz) Height: 1.74 m (5' 8.5") Exam: Const: No [...] were discussed with the patient. HOME MEDICATIONS: Benzonatate 200 MG Oral Capsule Bosentan 62.5 MG Oral Tablet (Tracleer) Ipratropium-Albuterol 0.5-2.5 (3) MG/3ML Inhalation Solution (Duoneb) Pirfenidone 267 MG Oral Capsule (Esbriet) Fluticasone Propionate 50 MCG/ACT Nasal Suspension (Flonase) Pantoprazole Sodium 40 MG Oral Tablet Delayed Release (Protonix) Atorvastatin Calcium 40 MG Oral Tablet (Lipitor) oxygen IN GAS Atorvastatin Calcium 40 MG Oral Tablet Omeprazole 40 MG Oral Capsule Delayed Release (PriLOSEC) ASPIRIN 81 MG PO TABS MULTI-VITAMIN PO TABS Trelegy Ellipta 100-62.5-25 MCG/ACT Aerosol Powder Breath Activated (Afvhgdhjosu-Vnzkjoslaczk-Cdkukmmjlp) Albuterol Sulfate (Proventil) (2.5 MG/3ML) 0.083% inhalation [...] 11/03/2012 COLONOSCOPY FLEXIBLE PROXIMAL DIAGNOSTIC performed by Zander Perkins MD at [facility] [...] 70 in 02 Heart Disorder Father DEC [place] 62 [place] No Known Problems Sister Heart Disorder Sister CABG 46 IN 99 Rectal cancer Brother Hypertension Brother Hypertension Brother Other (ANA) Brother Hypertension Brother Diabetes Grandmother (Paternal) iddm Review of patient's allergies indicates: No Known Allergies documented in this encounter Nursing Notes * Chary Velazquez LPN - 02/07/2024 8:25 AM EST Pt is here for f/u ILD. MMRC Dyspnea Scale = 2 (On level ground, I walk slower than people of the same age because of breathlessness or have to stop for breath when walking at my own) Interm History/Respiratory Symptoms Cough: occasional, clear phlegm Hemoptysis: no Sinus Symptoms: not currently, uses Flonase Hospitalizations: no ED Trips: no Triggers: scents, smoke, coming from the cold weather into the warm Nocturnal: occasional cough, sleeps with head elevated CPAP/BiPAP/O2: O2 2LPM at night and as needed with exertion DME Supplier: Sherry Martinez Flu Vaccine: 2023 Pneumovax: 2020 Prevnar: 2018 COVID 19: x 3 documented in this encounter Plan of Treatment Upcoming Encounters Date Type Department Care Team (Late st Contact Info) Description 04/12/2024 8:00 AM EST Office Visit Pulmonary Medicine, [facility] [address] [facility] [place] [address] Rafael Pierre MD [address] [place] [address] Scheduled Referrals Name Type Priority Associated Diagnoses Orde r Schedule PHARMACIST MEDS THERAPY MGMT REFERRAL OP Referral Within 3 days (urgent) Severe pulmonary hypertension (HCC) Idiopathic pulmonary fibrosis (HCC) Ordered: 02/07/2024 Health Maintenance Due Date Last Done Comments [...] as of this encounter Visit Diagnoses Diagnosis Severe pulmonary hypertension (HCC)- Primary Idiopathic pulmonary fibrosis (HCC) Idiopathic pulmonary fibrosis documented in this encounter Care Teams Shot Examiner Relationship Specialty Start Date End Date Pastora Montilla CRNP [address] [place] [address] [id number] PCP - General Nurse Practitioner 08/07/22 documented as of this encounter
--- OUTSIDE RECORDS SUMMARY | 2024-05-29 17:56 | External Medical Summary | Summary of Care ---
Author Name Unknown Organization [facility] Address [address] [place] [address] Phone [phone] Care Team Providers Care Splitting Machine Feeder Name Role Phone Pastora Montilla Primary Care Provide r Reason for Visit * Reason Onset Date Comments Precert Approved 02/08/2024 Bosentan 62.5 Encounter Details Date Type Department Care Team (Late st Contact Info) Description 02/08/2024 Telephone Pulmonary Medicine Sherry Duenas [address] [place] [phone] Rafael Pierre MD [address] [place] [address] Precert Approved (Bosentan 62.5) Allergies No known active allergiesdocumented as of this encounter (statuses as of 02/11/2024) Medications ASPIRIN 81 MG PO TABS one [...] 50 MCG/ACT Nasal Suspension (Flonase) Administer 1 [place] into each nostril 2 times a day. [...] Capsule 02/09/2024 1:13 PM EST 4 Active Hospital, Clinic, or Other Facility [...] as of this encounter (statuses as of 02/11/2024) Active Problems Problem Noted Date Diagnosed Date [...] as of this encounter (statuses as of 02/11/2024) Immunizations Name Administration Dates Next Due HEP [...] encounter Miscellaneous Notes * Telephone Encounter - Janelle Haskins CPhT - 02/08/2024 11:28 AM EST Pharmacy calling to inform doctor that the patient's insurance will not pay for this medication without a completed prior authorization. Did confirm this information with the pharmacy. Pt's current insurance information is as follows: Patient name: Juanjo Turner ID number: [id number] BIN number: [id number] PCN number: [id number] Group number: none Subscriber name: Juanjo Turner Primary or Secondary Insurance:Primary Medication: Bosentan 62.5 Reason for Request: prior auth required Pharmacy and phone number: [facility] [phone] Rx plan and phone number: [facility] [phone] Is this a new medication for the patient? Yes What alternative medications does the pharmacy have in stock?: none Thank you, Janelle Haskins CphT Center Director III [facility] Services([facility]) 02/08/24 documented in this encounter Plan of Treatment Upcoming Encounters Date Type Department Care Team (Late st Contact Info) Description 04/12/2024 8:00 AM EST Office Visit Pulmonary Medicine, [address] [place] [address] Rafael Pierre MD [address] [place] [address] Health Maintenance Due Date Last Done Comments [...] filedocumented as of this encounter Care Teams Splitting Machine Feeder Relationship Specialty Start Date End Date Pastora Montilla CRNP [address] [place] [address] [place] [address] PCP - General Nurse Practitioner 08/07/22 documented as of this encounter
--- OUTSIDE RECORDS SUMMARY | 2024-05-29 17:56 | External Medical Summary | Summary of Care ---
Author Name Unknown Organization [facility] Address [address] [place] [address] Phone [phone] Care Team Providers Care Purchase Order Checker Name Role Phone Pastora Montilla Primary Care Provide r Reason for Visit * Reason Onset Date Comments Test Results 02/18/2024 Echo Encounter Details Date Type Department Care Team (Late st Contact Info) Description 02/18/2024 Telephone [facility] [address] [facility] [place] [address] Rafael [facility] [address] [facility] [phone] Test Results (Echo) Allergies No known active allergiesdocumented as of this encounter (statuses as of 02/18/2024) Medications ASPIRIN 81 MG PO TABS one [...] 50 MCG/ACT Nasal Suspension (Flonase) Administer 1 [place] into each nostril 2 times a day. [...] as of this encounter (statuses as of 02/18/2024) Active Problems Problem Noted Date Diagnosed Date [...] as of this encounter (statuses as of 02/18/2024) Immunizations Name Administration Dates Next Due HEP [...] Telephone Encounter - Chary Velazquez LPN - 02/18/2024 12:07 PM EST ----- Message from Rafael Pierre MD sent at 02/18/2024 12:01 PM EST ----- [facility] Echo 01/2024: Moderate to Severe pulm HTN at PAP 60 mmHg Preserved EF at 60% Chart note documented in this encounter Plan of Treatment Upcoming Encounters Date Type Department Care Team (Late st Contact Info) Description 04/12/2024 8:00 AM EST Office Visit Pulmonary Medicine, [facility] [address] [facility] [place] [address] Rafael Pierre MD [address] [facility] [place] [address] Health Maintenance Due [...] filedocumented as of this encounter Care Teams Purchase Order Checker Relationship Specialty Start Date End Date Pastora Montilla CRNP [address] [place] [id number] PCP - General Nurse Practitioner 08/07/22 documented as of this encounter
--- OUTSIDE RECORDS SUMMARY | 2024-05-29 17:56 | External Medical Summary | Summary of Care ---
Author Name Unknown Organization [facility] Address [address] [place] [address] Phone [phone] Care Team Providers Care Company Tanker Truck Driver Name Role Phone Pastora Montilla Primary Care Provide r Reason for Visit * Reason Onset Date Comments Precert Approved 02/07/2024 Pirfenidone Encounter Details Date Type Department Care Team (Late st Contact Info) Description 02/07/2024 Telephone Pulmonary Medicine Sherry Duenas [address] [place] [phone] Rafael Pierre MD [address] [place] [phone] Precert Approved (Pirfenidone) Allergies No known active allergiesdocumented as of [...] 50 MCG/ACT Nasal Suspension (Flonase) Administer 1 [place] into each nostril 2 times a day. [...] 02/11/2024) Immunizations Name Administration Dates Next Due Diptheria/Tetanus [...] encounter Miscellaneous Notes * Telephone Encounter - Rfaael Pierre MD - 02/08/2024 5:54 PM EST Note was updated as advised. * Telephone Encounter - Chary Velazquez LPN - 02/08/2024 3:30 PM EST In order to get the order for Pirfenidone to get approved, note will need the following: "Medical record documentation that the patient was taught pulmonary rehabilitation techniques." Please add to note. * Telephone Encounter - Symone Manuel, physiognomist - 02/08/2024 1:02 PM EST Patient's plan is requesting the following information: Medical record documentation that the patient was taught pulmonary rehabilitation techniques. [place] P [phone] Thank you, Symone Manuel Medication Cco & President I [facility] 02/08/2024,1:03 PM * Telephone Encounter - Keya Pulido CPhT - 02/07/2024 11:38 AM EST New or re-auth: New Patient Juanjo Turner needs a prior authorization for a medication through their [facility] insurance. Medication: Pirfenidone Formulation: 267mg cap Dosage: Take 1 Capsule by mouth in the morning and 1 Capsule at noon and 1 Capsule before bedtime. ID: [id number] BIN:[id number] PCN:[id number] Phone: [employer] ship date is new start. Thank you very much, Keya Pulido CPhT Shop Clerk [facility] 02/07/2024,11:46 AM documented in this encounter Plan of Treatment Upcoming Encounters Date Type Department Care Team (Late st Contact Info) Description 04/12/2024 8:00 AM EST Office Visit Pulmonary Medicine, [address] [place] [address] Rafael Pierre MD [address] [facility] [place] [address] Health Maintenance Due [...] filedocumented as of this encounter Care Teams Company Tanker Truck Driver Relationship Specialty Start Date End Date Pastora Montilla CRNP [address] [place] [address] [place] [address] PCP - General Nurse Practitioner 08/07/22 documented as of this encounter
--- OUTSIDE RECORDS SUMMARY | 2024-05-29 17:56 | External Medical Summary | Summary of Care ---
Author Name Unknown Organization [facility] Address [address] [place] [address] Phone [phone] Care Team Providers Care Costume Director Name Role Phone Pastora Montilla Primary Care Provide r Reason for Visit * Reason Onset Date Comments Med Request 03/01/2024 Encounter Details Date Type Department Care Team (Late st Contact Info) Description 03/01/2024 Telephone Pulmonary Medicine, [facility] [address] Services, Scheduling [address] [place] [address] Med Request Allergies No known active allergiesdocumented [...] 50 MCG/ACT Nasal Suspension (Flonase) Administer 1 [place] into each nostril 2 times a day. [...] 03/01/2024) Immunizations Name Administration Dates Next Due HEP [...] encounter Miscellaneous Notes * Telephone Encounter - Geno Colón OSA - 03/01/2024 9:46 AM EST Pts called and the pharmacy will not fill the [facility]an [facility] are needing to talk with Dr. Pierre about this medication possible prior auth might be needed. But please call [phone] that is the specialty pharmacy team number. documented in this encounter Plan of Treatment Upcoming Encounters Date Type Department Care Team (Late st Contact Info) Description 04/12/2024 8:00 AM EST Office Visit Pulmonary Medicine, [facility] [address] [facility] [place] [address] Rafael Pierre MD [address] [...] filedocumented as of this encounter Care Teams Costume Director Relationship Specialty Start Date End Date Pastora Montilla CRNP [address] [place] [address] PCP - General Nurse Practitioner 08/07/22 documented as of this encounter
--- OUTSIDE RECORDS SUMMARY | 2024-05-29 17:56 | External Medical Summary | Summary of Care ---
Author Name Unknown Organization [facility] Address [address] [place] [address] Phone [phone] Care Team Providers Care Director Of Counseling Name Role Phone Pastora Montilla Primary Care Provide r Reason for Visit * Reason Onset Date Comments Precert In Process 02/07/2024 25 Symone Parra Pirfenidone Encounter Details Date Type Department Care Team (Late st Contact Info) Description 02/07/2024 Telephone Pulmonary Medicine Sherry Duenas [address] [phone] Rafale Pierre MD [address] [phone] Precert In Process (25 Symone Parra Pi... Allergies No known active allergiesdocumented as of this encounter (statuses as of 02/09/2024) Medications ASPIRIN 81 MG PO TABS one [...] 50 MCG/ACT Nasal Suspension (Flonase) Administer 1 [place] into each nostril 2 times a day. [...] as of this encounter (statuses as of 02/09/2024) Active Problems Problem Noted Date Diagnosed Date [...] as of this encounter (statuses as of 02/09/2024) Immunizations Name Administration Dates Next Due HEP [...] note. * Telephone Encounter - Symone Manuel cigarette making examiner - 02/08/2024 1:02 PM EST Patient's plan is requesting the following information: Medical record documentation that the patient was taught pulmonary rehabilitation techniques. [place] P [id number] Thank you, Symone Manuel Medication Hat Trimmer I [facility] 02/08/2024,1:03 PM * Telephone Encounter - Keya Pulido CPhT - 02/07/2024 11:38 AM EST New or re-auth: New Patient Juanjo Turner needs a prior authorization for a medication through their [facility] insurance. Medication: Pirfenidone Formulation: 267mg cap Dosage: Take 1 Capsule by mouth in the morning and 1 Capsule at noon and 1 Capsule before bedtime. ID: [id number] [id number] PCN:nvtd Phone: [employer] ship date is new start. Thank you very much, Keya Pulido CPhT Meat Counter Clerk [facility] 02/07/2024,11:46 AM documented in this encounter Plan of Treatment Upcoming Encounters Date Type Department Care Team (Late st Contact Info) Description 04/12/2024 8:00 AM EST Office Visit Pulmonary Medicine, [facility] 132 [facility] [place] [address] Rafael Pierre MD [address] [facility] [address] Health Maintenance Due Date Last [...] filedocumented as of this encounter Care Teams Director Of Counseling Relationship Specialty Start Date End Date Pastora Montilla CRNP [address] [place] [address] PCP - General Nurse Practitioner 08/07/22 documented as of this encounter
--- OUTSIDE RECORDS SUMMARY | 2024-05-29 17:56 | External Medical Summary | Summary of Care ---
Author Name Unknown Organization [facility] Address [address] [place] [facility] [place] [address] Phone [phone] Care Team Providers Care Lumber Handler Name Role Phone Pastora Montilla Primary Care [...] 50 MCG/ACT Nasal Suspension (Flonase) Administer 1 [place] into each nostril 2 times a day. [...] 02/18/2024) Immunizations Name Administration Dates Next Due Diptheria/Tetanus [...] as of this encounter Miscellaneous Notes * Result Encounter Note - Rafael Pierre MD - 02/18/2024 12:00 PM EST Images from the original note were not included. documented in this encounter Plan of Treatment Upcoming Encounters Date Type Department Care Team (Late st Contact Info) Description 04/12/2024 8:00 AM EST Office Visit Pulmonary Medicine, [facility] 132 [facility] [address] Rafael Pierre MD [address] [place] [phone] Health Maintenance Due Date Last Done Comments [...] Result documented in this encounter Care Teams Lumber Handler Relationship Specialty Start Date End Date Pastora Montilla CRNP [address] [place], [place] [address] [address] PCP - General Nurse Practitioner 08/07/22 documented as of this encounter
--- OUTSIDE RECORDS SUMMARY | 2024-05-29 17:56 | External Medical Summary | Summary of Care ---
Author Name Unknown Organization [facility] Address [address] [place] [address] Phone [phone] Care Team Providers Care Uke Operator Name Role Phone Pastora Montilla Primary Care Provide r Reason for Visit * Reason Onset Date Comments Medication Refill 02/29/2024 Encounter Details Date Type Department Care Team (Late st Contact Info) Description 02/29/2024 Telephone Pulmonary Medicine, [facility] 132 [facility] [place] [address] Rafael Pierre MD [address] [facility] [place] [phone] Medication Refill Allergies No known active allergiesdocumented as of this encounter (statuses as of 02/29/2024) Medications ASPIRIN 81 MG PO TABS one [...] 50 MCG/ACT Nasal Suspension (Flonase) Administer 1 [place] into each nostril 2 times a day. [...] 02/18/2024 3:38 PM EST 4 025 Active Benzonatate 200 MG Oral [...] before bedtime. 60 Tablet 2 4 Active Bosentan 62.5 MG Oral Tablet (Tracleer) Take 62.5 mg by mouth in the morning and 62.5 mg before bedtime. 60 Tablet 2 4 024 Discontin ued(Refil l) Hospital, Clinic, or Other Facility Administered Medication [...] as of this encounter (statuses as of 02/29/2024) Active Problems Problem Noted Date Diagnosed Date [...] as of this encounter (statuses as of 02/29/2024) Immunizations Name Administration Dates Next Due HEP [...] encounter Miscellaneous Notes * Telephone Encounter - Uli Adan RPh - 02/29/2024 10:24 AM EST [facility] cannot fill bosentan due to limited distribution (REMS). We have forwarded the prescription to [facility]. The office should follow up with this Pharmacy to ensure they have contacted patient. Thank you. Uli Adan RPh [facility] 02/29/2024, 10:24 AM documented in this encounter Plan of Treatment Upcoming Encounters Date Type Department Care Team (Late st Contact Info) Description 04/12/2024 8:00 AM EST Office Visit Pulmonary Medicine, [facility] [address] [place] [address] Rafael Pierre MD [address] [...] filedocumented as of this encounter Care Teams Uke Operator Relationship Specialty Start Date End Date Pastora Montilla CRNP [address] [facility] [place] [address] PCP - General Nurse Practitioner 08/07/22 documented as of this encounter
--- OUTSIDE RECORDS SUMMARY | 2024-05-29 17:56 | External Medical Summary | Summary of Care ---
Author Name Unknown Organization [facility] Address [address] [place] [address] Phone [phone] Care Team Providers Care Crtts Name Role Phone Pastora Montilla Primary Care Provide r Reason for Visit * Reason Onset Date Comments Precert In Process 02/07/2024 25 Symone Parra Pirfenidone Encounter Details Date Type Department Care Team (Late st Contact Info) Description 02/07/2024 Telephone Pulmonary Medicine Sherry Duenas [address] [phone] Rafael Pierre MD [address] [phone] Precert In Process (25 Symone Parra Pi... [...] 50 MCG/ACT Nasal Suspension (Flonase) Administer 1 [place] into each nostril 2 times a day. [...] note. * Telephone Encounter - Symone Manuel calculus professor - 02/08/2024 1:02 PM EST Patient's plan is requesting the following information: Medical record documentation that the patient was taught pulmonary rehabilitation techniques. Please reply to P [id number] Thank you, Symone Manuel Medication Director Of Catering Sales I [facility] 02/08/2024,1:03 PM * Telephone Encounter - Keya Pulido CPhT - 02/07/2024 11:38 AM EST New or re-auth: New Patient Juanjo Turner needs a prior authorization for a medication through their [facility] insurance. Medication: Pirfenidone Formulation: 267mg cap Dosage: Take 1 Capsule by mouth in the morning and 1 Capsule at noon and 1 Capsule before bedtime. ID: [id number] BIN:[id number] PCN:nvtd Phone: [employer] ship date is new start. Thank you very much, Keya Pulido CPhT Visual Inspector [facility] 02/07/2024,11:46 AM documented in this encounter Plan of Treatment Upcoming Encounters Date Type Department Care Team (Late st Contact Info) Description 04/12/2024 8:00 AM EST Office Visit Pulmonary Medicine, [facility] 132 [facility] [place] [address] Rafael Pierre MD [address] [facility] [place] [address] Health Maintenance Due Date [...] filedocumented as of this encounter Care Teams Crtts Relationship Specialty Start Date End Date Pastora Montilla CRNP [address] [place] [address] PCP - General Nurse Practitioner 08/07/22 documented as of this encounter
--- OUTSIDE RECORDS SUMMARY | 2024-05-29 17:56 | External Medical Summary | Summary of Care ---
Author Name Unknown Organization [facility] Address [address] [place] [address] Phone [phone] Care Team Providers Care Envelope Press Operator Name Role Phone Pastora Montilla Primary Care Provide r Reason for Visit * Reason Onset Date Comments Precert In Process 02/07/2024 25 Symone Parra Pirfenidone Encounter Details Date Type Department Care Team (Late st Contact Info) Description 02/07/2024 Telephone Pulmonary Medicine Sherry Duenas [address] [phone] Rafael Pierre MD [address] [phone] Precert In Process (25 Symone Parra Pi... [...] 50 MCG/ACT Nasal Suspension (Flonase) Administer 1 [place] into each nostril 2 times a day. [...] note. * Telephone Encounter - Symone Manuel orderlies teacher - 02/08/2024 1:02 PM EST Patient's plan is requesting the following information: Medical record documentation that the patient was taught pulmonary rehabilitation techniques. Please reply to P [phone] Thank you, Symone Manuel Medication Lieutenant General I [facility] 02/08/2024,1:03 PM * Telephone Encounter - Keya Pulido CPhT - 02/07/2024 11:38 AM EST New or re-auth: New Patient Juanjo Turner needs a prior authorization for a medication through their [facility] insurance. Medication: Pirfenidone Formulation: 267mg cap Dosage: Take 1 Capsule by mouth in the morning and 1 Capsule at noon and 1 Capsule before bedtime. ID: [id number] BIN:[id number] PCN:nvtd Phone: [employer] ship date is new start. Thank you very much, Keya Pulido CPhT Tunnel Worker [facility] 02/07/2024,11:46 AM documented in this encounter Plan of Treatment Upcoming Encounters Date Type Department Care Team (Late st Contact Info) Description 04/12/2024 8:00 AM EST Office Visit Pulmonary Medicine, [facility] 132 [facility] [place] [address] Rafael Pierre MD [address] [facility] [address] Health Maintenance Due Date [...] filedocumented as of this encounter Care Teams Envelope Press Operator Relationship Specialty Start Date End Date Pastora Montilla CRNP [address] [place] [address] PCP - General Nurse Practitioner 08/07/22 documented as of this encounter
--- OUTSIDE RECORDS SUMMARY | 2024-05-29 17:56 | External Medical Summary | Summary of Care ---
Author Name Unknown Organization [facility] Address [address] [place] [address] Phone [phone] Care Team Providers Care Electrical Sign Servicer Name Role Phone Pastora Montilla Primary Care Provide r Reason for Visit * Reason Onset Date Comments Medication Refill 02/15/2024 Encounter Details Date Type Department Care Team (Late st Contact Info) Description 02/15/2024 Refill Pulmonary Function Lab, [facility] [address] [facility] [place] [address] Rafael Pierre MD [address] [facility] [place] [phone] Allergies No known active allergiesdocumented as of [...] 50 MCG/ACT Nasal Suspension (Flonase) Administer 1 [place] into each nostril 2 times a day. [...] THEN 3 Capsules 3 times a day 126 Capsule 4 03/07/20 Active Hospital, Clinic, [...] starter dose per encounter Shahab Gerard, PharmD [facility] 02/15/2024, 8:42 AM documented in this encounter Plan of Treatment Upcoming Encounters Date Type Department Care Team (Late st Contact Info) Description 04/12/2024 8:00 AM EST Office Visit Pulmonary Medicine, [address] [place] [address] Rafael Pierre MD [address] [phone] Health Maintenance Due Date Last Done Comments [...] filedocumented as of this encounter Care Teams Electrical Sign Servicer Relationship Specialty Start Date End Date Pastora Montilla CRNP [address] [place], [place] [address] [address] PCP - General Nurse Practitioner 08/07/22 documented as of this encounter
--- OUTSIDE RECORDS SUMMARY | 2024-05-29 17:56 | External Medical Summary | Summary of Care ---
Author Name Unknown Organization [facility] Address [address] [place] [address] Phone [phone] Care Team Providers Care Network Systems Consultant Name Role Phone Pastora Montilla Primary Care Provide r Reason for Visit * Reason Onset Date Comments Med Request 03/01/2024 Encounter Details Date Type Department Care Team (Late st Contact Info) Description 03/01/2024 Telephone Pulmonary Medicine, [facility] [address] [facility] [place] [address] Services, Scheduling [address] [place] [address] Med Request Allergies No known active allergiesdocumented [...] 50 MCG/ACT Nasal Suspension (Flonase) Administer 1 [place] into each nostril 2 times a day. [...] [facility] are needing to talk with Dr. Pierre about this medication possible prior auth might be needed. But please call [phone] that is the specialty pharmacy team number. documented in this encounter Plan of Treatment Upcoming Encounters Date Type Department Care Team (Late st Contact Info) Description 04/12/2024 8:00 AM EST Office Visit Pulmonary Medicine, [facility] 132 [facility] [place] [address] Rafael Pierre MD 217 [...] filedocumented as of this encounter Care Teams Network Systems Consultant Relationship Specialty Start Date End Date Pastora Montilla CRNP [address] [place] [address] PCP - General Nurse Practitioner 08/07/22 documented as of this encounter
--- OUTSIDE RECORDS SUMMARY | 2024-05-29 17:57 | External Medical Summary | Summary of Care ---
Author Name Unknown Organization [facility] Address [address] [place] [address] Phone [phone] Care Team Providers Care Student Development Coordinator Name Role Phone Pastora Montilla Primary Care Provide r Encounter Details Date Type Department Care Team (Late st Contact Info) Description 01/25/2024 Orders Only Pulmonary Medicine Sherry Duenas [address] [phone] Rafael Pierre MD [address] [phone] ILD (interstitial lung disease) (HCC)*; Chronic respiratory failure with hypoxia (HCC) Allergies No known active allergiesdocumented as of this encounter (statuses as of 01/30/2024) Medications ASPIRIN 81 MG PO TABS one pill each day Active MULTI-VITAMIN PO TABS one pill each day Active Omeprazole 40 MG Oral Capsule Delayed Release (PriLOSEC) Take 1 Capsule by mouth in the morning. 3 Active Atorvastatin Calcium 40 MG Oral Tablet Take 1 Tablet by mouth in the morning. 30 Tablet 3 Active Albuterol Sulfate HFA 108 (90 Base) MCG/ACT Inhalation Aerosol Solution Inhale 2 Puffs by mouth every 6 hours as needed. Active oxygen IN GAS Use 2 L/min(Oxygen) as directed at bedtime. Active Atorvastatin Calcium 40 MG Oral Tablet [...] 3 08/06/2023 12:33 PM EDT 4 Active Pantoprazole Sodium 40 MG Oral Tablet Delayed Release (Protonix) Take one tablet by mouth twice a day, pt aware of dose change, increase to twice daily for one month 180 Tablet 3 01/26/2024 7:37 AM EST 4 Active Fluticasone Propionate 50 MCG/ACT Nasal Suspension (Flonase) Administer 1 [place] into each nostril 2 times a day. 48 g 3 11/12/2023 10:42 AM EDT 4 Active Benzonatate 200 MG Oral Capsule Take 1 Capsule by mouth 3 times a day as needed for Cough. 20 Capsule 4 Active predniSONE 5 MG Oral Tablet (Deltasone) Take 4 tab Daily for 5 Days Then 3 Tab daily for 10 days Then 2 tab daily for 10 days Then 1 tabe daily for 10 days and STOP 80 Tablet 4 Active Albuterol Sulfate HFA 108 (90 Base) MCG/ACT Inhalation Aerosol Solution Inhale 2 puffs by mouth four times daily as needed for shortness of breath, wheezing, or cough 54 g 3 12/10/2023 11:18 AM EDT 4 Active Hospital, Clinic, or Other Facility [...] (HCC) 2.5 mg NEBULIZER PRN 01/30/2024 Active documented as of this encounter (statuses as of 01/30/2024) Active Problems Problem Noted Date Diagnosed Date [...] as of this encounter (statuses as of 01/30/2024) Immunizations Name Administration Dates Next Due HEP [...] drink = 0.6 oz pur e alcohol) Utilities Answer Date Recorded Do you have trouble paying y our heating, water, or electric bill? (Adult - for ages 18 years and over) Not on file 08/31/2023 Is your family able to pay t he heat, water, or electric bill? (Household - for ages 0-17 years) Not on file 08/31/2023 Does your family have access to good internet? (Household - for ages 0-17 years) Not on file 08/31/2023 Social Connections Answer Date Recorded How often do you feel lonely or isolated from those around you? (Adult - for ages 18 years and over) Not on file 08/31/2023 Sex and Gender Information Value Date Recorded [...] Care Team (Late st Contact Info) Description 01/31/2024 2:00 PM EST PulmDiagnostic Pulmonary Function Lab, [facility] [address] [place] [address] [place], Pulm Function Tech 2 132 [facility] [place] [address] 02/07/2024 8:40 AM EST Office Visit Pulmonary Medicine, [facility] [address] [place] [address] Rafael Pierre MD [address] [address] Health Maintenance Due Date Last Done Comments Depression Screening 1962 Hepatitis C Screening 1968 DTap/Tdap Vaccines (1 - Tdap) 11/01/1994 10/31/1994, 03/15/1994, 03/15/1994 Cologuard 11/22/1995 Fecal Occult Blood Test 11/22/1995 Sigmoidoscopy 11/22/1995 Lipid Panel 07/04/2017 07/04/2012, 06/14, 11/23/2011, Additional history exists Colonoscopy 11/03/2017 11/03/2012, 10/14, 05/05/2007 Colorectal Cancer Screening 11/03/2017 Zoster Vaccines (3 of 3) 11/03/2021 09/08/2021, 09/13 COVID-19 Vaccine (1 - 4- season) 2023 Hepatitis B Vaccine Completed 07/11/1998, [...] disease) (HCC)- Primary Postinflammatory pulmonary fibrosis Chronic respiratory failure with hypoxia (HCC) Chronic respiratory failure documented in this encounter Care Teams Student Development Coordinator Relationship Specialty Start Date End Date Pastora Montilla CRNP [address] [place], [place] [address] [address] PCP - General Nurse Practitioner 08/07/22 documented as of this encounter
--- OUTSIDE RECORDS SUMMARY | 2024-05-29 17:57 | External Medical Summary | Summary of Care ---
Author Name Unknown Organization [facility] Address [address] [place] [address] Phone [phone] Care Team Providers Care Negotiations Director Name Role Phone Pastora Montilla Primary Care Provide r Reason for Visit * Reason Comments Pulmonary Function Test Encounter Details Date Type Department Care Team (Late st Contact Info) Description 01/31/2024 2:00 PM EST PulmDiagnostic Pulmonary Function Lab, [facility] 132 [facility] [place] [address] [facility] Pul Function Tech 2 132 [facility] [place] [address] ILD (interstitial lung disease) ([facility])*; Chronic respiratory failure with hypoxia (HCC) Allergies No known active allergiesdocumented as of this encounter (statuses as of 01/31/2024) Medications ASPIRIN 81 MG PO TABS one [...] Active Additional Information Patient not taking.Reported on 01/31/2024 Pantoprazole Sodium 40 MG Oral Tablet Delayed Release (Protonix) Take one tablet by mouth twice a day, pt aware of dose change, increase to twice daily for one month 180 Tablet 3 01/26/2024 7:37 AM EST 4 Active Fluticasone Propionate 50 MCG/ACT Nasal Suspension (Flonase) Administer 1 [place] into each nostril 2 times a day. [...] as of this encounter (statuses as of 01/31/2024) Active Problems Problem Noted Date Diagnosed Date [...] as of this encounter (statuses as of 01/31/2024) Immunizations Name Administration Dates Next Due HEP [...] on file documented as of this encounter Progress Notes * Kia Espinoza RRT - 01/31/2024 2:38 PM EST PATIENT COMPLETED 6 MINUTE WALK. PATIENT WAS UP TO 8L NC AND SPO2 WAS ONLY 78%. PATIENT HAD ILD ANDREPORTS THIS IS NORMAL FOR HIM, PATIENT ALSO REPORTS SOB DURING AMBULATION. documented in this encounter Plan of Treatment Upcoming Encounters Date Type Department Care Team (Late st Contact Info) Description 02/07/2024 8:40 AM EST Office Visit Pulmonary Medicine, [facility] 132 [facility] [place] [address] Rafael Pierre MD [address] [address] Pending Results Name Type Priority Associated Diagnoses Date /Time DIFFUSION CAPACITY (DLCO) Procedures Routine ILD (interstitial lung disease) (HCC) Chronic respiratory failure with hypoxia (HCC) 01/31/2024 1:57 PM EST LUNG VOLUMES (PLETHYSMOGRAPHY) Procedures Routine ILD (interstitial lung disease) (HCC) Chronic respiratory failure with hypoxia (HCC) 01/31/2024 1:57 PM EST SPIROMETRY B/A BRONCHODILATOR Procedures Routine ILD (interstitial lung disease) (HCC) Chronic respiratory failure with hypoxia (HCC) 01/31/2024 1:57 PM EST Health Maintenance Due Date Last Done [...] Procedure Name Priority Date/Time Associated Diagnosis Comments DIFFUSION CAPACITY (DLCO) Routine 2023 1:57 PM EST ILD (interstitial lung disease) (HCC) Chronic respiratory failure with hypoxia (HCC) LUNG VOLUMES (PLETHYSMOGRAPHY) Routine 01/31/2024 1:57 PM EST ILD (interstitial lung disease) (HCC) Chronic respiratory failure with hypoxia (HCC) SPIROMETRY B/A BRONCHODILATOR Routine 01/31/2024 1:57 PM EST ILD (interstitial lung disease) (HCC) Chronic respiratory failure with hypoxia (HCC) documented in this encounter Visit Diagnoses Diagnosis ILD (interstitial lung disease) (HCC)- Primary Postinflammatory pulmonary fibrosis Chronic respiratory failure with hypoxia (HCC) Chronic respiratory failure documented in this encounter Administered Medications Active Administered Medications - up to 3 most recent administrations Medication Order MAR Action Action Date Dose Rate Site Albuterol Sulfate (Proventil) (2.5 MG/3ML) 0.083% inhalation solution 2.5 mg 2.5 mg, Nebulizer, PRN Other, Starting on 01/31/24 at 0813, Until Discontinued, Only one type of albuterol product should be administered (Nebulizer or Inhaler). Please select and document on the appropriate albuterol product order.Indications:ILD (interstitial lung disease) (HCC) Given 01/31/2024 2:18 PM EST 2.5 mg documented in this encounter Care Teams Negotiations Director Relationship Specialty Start Date End Date Pastora Montilla CRNP [address] [place] [phone] PCP - General Nurse Practitioner 08/07/22 documented as of this encounter
--- OUTSIDE RECORDS SUMMARY | 2024-05-29 17:57 | External Medical Summary | Summary of Care ---
Author Name Unknown Organization [facility] Address [address] [place] [address] Phone [phone] Care Team Providers Care Cellophane Tester Name Role Phone Pastora Montilla Primary Care Provide r Reason for Visit * Reason Onset Date Comments Advice 02/07/2024 Patient has ronald ional questions can Dr. Pierre call the patient Durable Medical Equipment 02/07/2024 Fax up ped oxygen 3Lto 8L while walking order to [employer] Encounter Details Date Type Department Care Team (Late st Contact Info) Description 02/07/2024 Telephone Pulmonary Medicine, [address] [address] Services, Scheduling [address] [place] [address] Advice (Patient has aditional questions ca... 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 [...] as of this encounter (statuses as of 02/07/2024) Active Problems Problem Noted Date Diagnosed Date [...] as of this encounter (statuses as of 02/07/2024) Immunizations Name Administration Dates Next Due HEP [...] encounter Miscellaneous Notes * Telephone Encounter - Samanta Turner OSA - 02/07/2024 11:41 AM EST calling in the oxygen company needs an order that they are upping his oxygen from 3L to 8L forwalking and fax to them Please fax to: [facility] Att: Navjot Can Dr Pierre call the patient, when he gets a chance the patient forgot to ask some additional questions at his appointment. documented in this encounter Plan of Treatment Upcoming Encounters Date Type Department Care Team (Late st Contact Info) Description 04/12/2024 8:00 AM EST Office Visit Pulmonary Medicine, [address] [place] [address] Rafael Pierre MD [address] [phone] Health Maintenance Due Date Last Done Comments [...] filedocumented as of this encounter Care Teams Cellophane Tester Relationship Specialty Start Date End Date Pastora Montilla CRNP [address] [place], [place] [address] [address] PCP - General Nurse Practitioner 08/07/22 documented as of this encounter
--- OUTSIDE RECORDS SUMMARY | 2024-05-29 17:57 | External Medical Summary | Summary of Care ---
Author Name Unknown Organization [facility] Address [address] [place] [address] Phone [phone] Care Team Providers Care Silk Winding Machine Operator Name Role Phone Pastora Montilla Primary Care Provide r Encounter Details Date Type Department Care Team (Late st Contact Info) Description 01/28/2024 Orders Only Sleep Disorders, [facility] [address] [place] [address] Ridge Bhagat PA-C [address] [place] [address] ILD (interstitial lung disease) ([facility])* Allergies No known active allergiesdocumented as of [...] (Fluticasone-Ume clidinium-Vilant flora)Indications :ILD (interstitial lung disease) ([facility]),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 [...] inhalation solution 2.5 mgIndications:ILD (interstitial lung disease) ([facility]) 2.5 mg NEBULIZER PRN 01/31/2024 Active Albuterol Sulfate (Proventil) (5 MG/ML) 0.5% *conc* inhalation solution 2.5 mgIndications:ILD (interstitial lung disease) ([facility]) 2.5 mg NEBULIZER PRN 01/31/2024 Active documented [...] 2:00 PM EST PulmDiagnostic Pulmonary Function Lab, [facility] [address] [place] [address] Mikel Pulm Function Tech 2 [address] [place] [address] 02/07/2024 8:40 AM EST Office Visit Pulmonary Medicine, [facility] [address] [place] [address] Rafael Pierre MD [address] [place] [address] Health Maintenance Due Date [...] lung disease) (HCC)- Primary Postinflammatory pulmonary fibrosis documented in this encounter Care Teams Silk Winding Machine Operator Relationship Specialty Start Date End Date Pastora Montilla CRNP [address] [place] [address] [place] [address] PCP - General Nurse Practitioner 08/07/22 documented as of this encounter
--- OUTSIDE RECORDS SUMMARY | 2024-05-29 17:57 | External Medical Summary | Summary of Care ---
Author Name Unknown Organization [facility] Address [address] [place] [address] Phone [phone] Care Team Providers Care Oven Tender Bagels Name Role Phone Pastora Montilla Primary Care Provide r Reason for Referral * Evaluate & Treat - Unlimited Visits (Within 3 days (urgent)) - Authorized Specialty Diagnoses / Procedures Referred By Naomy [email or web address] Referred To Contact Pharmacist / Pharmacy Diagnoses Severe pulmonary hypertension (HCC) Idiopathic pulmonary fibrosis (HCC) Rafael Pierre MD [address] [place] [address] Phone: tel: fax: Referral ID Status Reason Start Date Expiration Date Visits Requested Visits Authorized [id number] Authorized Specialty Services Required 4 08/05/2024 99 99 Question Answer Referral Priority Within 3 days (urgent) Where should this appointment be scheduled? [facility] Referring Provider Role: Specialist Specialty: Pulm Reason for Referral: ILD - ILD and PH Comments Pharmacist Medication Therapy Management: Minimum frequency patient should be seen in person for medication management: as appropriate per clinical condition and patient status By my signature, I understand that my patient Juanjo Turner will have his medication therapy managed by the [facility] Medication Therapy Disease Management [facility] ([facility]) per established policies, procedures, and protocols. I also certify that this referral may serve as an initiation of service for the management of drug therapy in the above noted patient. [facility] providers will be responsible for scheduling patient visits, obtaining appropriate laboratory studies, and adjusting medication management therapy per patient's need, in addition to those roles spelled out in the clinic policy, procedures, and drug management protocols. I understand that the service provided by the [facility] is voluntary and have informed patient that they can refuse the service at their discretion. I am aware that the [facility] will provide me with a copy of the patient encounter via my [employer] InSeemagesket. I authorize the [facility] to carry out these activities on my behalf. I consider this program to be a necessary part of the patient's medical care. Rafael Pierre MD Reason for Visit * Reason Comments Follow Up Encounter Details Date Type Department Care Team (Late st Contact Info) Description 02/07/2024 8:40 AM EST Office Visit Pulmonary Medicine, [address] [place] [phone] Rafael Pierre MD [facility] [place] [address] Severe pulmonary hypertension (HCC)*; Idiopathic pulmonary fibrosis [...] 50 MCG/ACT Nasal Suspension (Flonase) Administer 1 [place] into each nostril 2 times a day. 48 g 3 11/12/2023 10:42 AM EDT 4 Active Ipratropium-Alb uterol 0.5-2.5 (3) MG/3ML Inhalation Solution (Duoneb) Inhale 3 mL by mouth every 6 hours as needed. Active Pirfenidone 267 MG Oral Capsule (Esbriet) Take 1 Capsule by mouth in the morning and 1 Capsule at noon and 1 Capsule before bedtime. 90 Capsule 2 4 025 Active Bosentan 62.5 MG Oral Tablet (Tracleer) Take 62.5 mg by mouth in the morning and 62.5 mg before bedtime. 60 Tablet 2 4 025 Active Benzonatate 200 MG Oral Capsule Take 1 Capsule by mouth 3 times a day as needed for Cough. 20 Capsule 4 Active Benzonatate 200 MG Oral Capsule [...] 02/08/2024) Immunizations Name Administration Dates Next Due Diptheria/Tetanus [...] note were not included. 02/07/2024 Pulmonary Medicine, [facility] [address] [place] [id number] Juanjo Turner 1950 male 73 year old Attending Physician Documentation: 73-year-old male Lifetime nonsmoker Persistent dry cough episodes ILD-IPF Radiologic evidence of ILD-IPF L > R Severe pulmonary hypertension, PA pressure 60 mmHg, Echocardiogram [facility] 10/2023 Hypoxic respiratory failure, 3 LPM nocturnal [...] DuoNeb (cost issues) as maintenance bronchodilator regimen Tesyession ciro refilled 8 LPM POC ordered for [...] pulmonary hypertension, PA pressure 60 mmHg, Echocardiogram [facility] 10/2023 Hypoxic respiratory failure, 3 LPM nocturnal [...] presents with Follow Up HPI: Nursing Notes: Chary Velazquez LPN 02/07/24 0837 Addendum Pt is here for [...] Ellipta 100-62.5-25 MCG/ACT Aerosol Powder Breath Activated (Voufjqkashv-Xkrkutxzcksl-Kxgkfmlkre) Albuterol Sulfate (Proventil) (2.5 MG/3ML) 0.083% inhalation [...] 70 in 02 Heart Disorder Father DEC [place] 62 [place] No Known Problems Sister Heart [...] Encounters Date Type Department Care Team (Late Contact Info) Description 04/12/2024 8:00 AM EST Office Visit Pulmonary Medicine, [facility] [address] [place] [address] Rafael Pierre MD [address] [place] [address] Scheduled Referrals Name Type Priority Associated Diagnoses [...] fibrosis documented in this encounter Care Teams Oven Tender Bagels Relationship Specialty Start Date End Date Pastora Montilla CRNP [address] [place], [place] [address] [address] PCP - General Nurse Practitioner 08/07/22 documented as of this encounter
--- OUTSIDE RECORDS SUMMARY | 2024-05-29 17:57 | External Medical Summary | Summary of Care ---
Author Name Unknown Organization [facility] Address [address] [place] [address] Phone [phone] Care Team Providers Care Magazine Hand Name Role Phone Pastora Montilla Primary Care Provide r Encounter Details Date Type Department Care Team (Late st Contact Info) Description 01/25/2024 Orders Only Pulmonary Medicine Sherry Duenas [address] [place] [phone] Rafael Pierre MD [address] [address] [address] ILD (interstitial lung disease) (HCC)*; Chronic respiratory [...] 50 MCG/ACT Nasal Suspension (Flonase) Administer 1 [place] into each nostril 2 times a day. [...] 2:00 PM EST PulmDiagnostic Pulmonary Function Lab, [facility] [address] [place] [address] [place], Pulm Function Tech 2 132 [facility] [place] [address] 02/07/2024 8:40 AM EST Office Visit Pulmonary Medicine, [facility] [address] [place] [address] Rafael Pierre MD [address] [place] [address] Health Maintenance Due Date Last Done Comments [...] failure documented in this encounter Care Teams Magazine Hand Relationship Specialty Start Date End Date Pastora Montilla CRNP [address] [place], [place] [address] [address] PCP - General Nurse Practitioner 08/07/22 documented as of this encounter
--- OUTSIDE RECORDS SUMMARY | 2024-05-29 17:57 | External Medical Summary | Summary of Care ---
Author Name Unknown Organization [facility] Address [address] [place] [address] Phone [phone] Care Team Providers Care Automatic Toe Laster Name Role Phone Pastora Montilla Primary Care Provide r Reason for Referral * Evaluate & Treat - Unlimited Visits (Within 3 days (urgent)) - Authorized Specialty Diagnoses / Procedures Referred By Naomy bhakta Referred To Contact Pharmacist / Pharmacy Diagnoses Severe pulmonary hypertension (HCC) Idiopathic pulmonary fibrosis (HCC) Rafael Pierre MD [address] [place] [address] Phone: tel: fax: Referral ID Status Reason Start Date Expiration Date Visits Requested Visits Authorized [id number] Authorized Specialty Services Required 4 08/05/2024 99 99 Question Answer Referral Priority Within 3 days (urgent) Where should this appointment be scheduled? [facility] Referring Provider Role: Specialist Specialty: Pulm Reason for Referral: ILD - ILD and PH Comments Pharmacist Medication Therapy Management: Minimum frequency patient should be seen in person for medication management: as appropriate per clinical condition and patient status By my signature, I understand that my patient Juanjo Turner will have his medication therapy managed by the [facility] Medication Therapy Disease Management [facility] ([facility]) per established policies, procedures, and protocols. I also certify that this referral may serve as an initiation of service for the management of drug therapy in the above noted patient. [facility] providers will be responsible for scheduling patient visits, obtaining appropriate laboratory studies, and adjusting medication management therapy per patient's need, in addition to those roles spelled out in the clinic policy, procedures, and drug management protocols. I understand that the service provided by the [facility] is voluntary and have informed patient that they can refuse the service at their discretion. I am aware that the [facility] will provide me with a copy of the patient encounter via my [employer] InAllmoxysket. I authorize the [facility] to carry out these activities on my behalf. I consider this program to be a necessary part of the patient's medical care. Rafael Pierre MD Reason for Visit * Reason Comments Follow Up Encounter Details Date Type Department Care Team (Late st Contact Info) Description 02/07/2024 8:40 AM EST Office Visit Pulmonary Medicine, [address] [place] [phone] Rafael Pierre MD [facility] [address] [facility] [place] [address] Severe pulmonary hypertension (HCC)*; Idiopathic pulmonary fibrosis [...] 50 MCG/ACT Nasal Suspension (Flonase) Administer 1 [place] into each nostril 2 times a day. [...] note were not included. 02/07/2024 Pulmonary Medicine, [address] [place] [id number] Juanjo Turner 1950 male 73 year old Attending Physician Documentation: 73-year-old male Lifetime nonsmoker Persistent dry cough episodes ILD-IPF Radiologic evidence of ILD-IPF L > R Severe pulmonary hypertension, [place] pressure 60 mmHg, Echocardiogram [facility] 10/2023 Hypoxic respiratory failure, 3 [...] pulmonary hypertension, [place] pressure 60 mmHg, Echocardiogram [facility] 10/2023 Hypoxic respiratory failure, 3 [...] Ellipta 100-62.5-25 MCG/ACT Aerosol Powder Breath Activated (Brzoleufzuy-Nxjwlcuvkidr-Vidgxxtpnt) Albuterol Sulfate (Proventil) (2.5 MG/3ML) 0.083% inhalation [...] 70 in 02 Heart Disorder Father DEC [place] 62 [place] No Known Problems Sister Heart [...] 8:00 AM EST Office Visit Pulmonary Medicine, [facility] [address] [facility] [place] [facility] [place] [address] Rafael Pierre MD [address] [place] [phone] Scheduled Referrals Name Type Priority Associated Diagnoses [...] fibrosis documented in this encounter Care Teams Automatic Toe Laster Relationship Specialty Start Date End Date Pastora Montilla CRNP [address] [place], [place] [address] [address] PCP - General Nurse Practitioner 08/07/22 documented as of this encounter
--- OUTSIDE RECORDS SUMMARY | 2024-05-29 17:57 | External Medical Summary | Summary of Care ---
Author Name Unknown Organization [facility] Address [address] [place] [address] Phone [phone] Care Team Providers Care Preservationist Name Role Phone Pastora Montilla Primary Care Provide r Reason for Visit * Reason Onset Date Comments Advice 02/07/2024 Patient has ronald ional questions can Dr. Mcclellan call the patient Durable Medical Equipment 02/07/2024 Fax up ped oxygen 3Lto 8L while walking order to [employer] Encounter Details Date Type Department Care Team (Late st Contact Info) Description 02/07/2024 Telephone Pulmonary Medicine, [address] [address] Services, Scheduling [address] [place] [address] Advice (Patient has aditional questions ca... 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 [...] 02/07/2024) Immunizations Name Administration Dates Next Due Diptheria/Tetanus [...] as of this encounter Miscellaneous Notes * Addendum Note - Rafael Mcclellan MD - 02/07/2024 5:47 PM ESTAddended by: RAFAEL MCCLELLAN on: 02/07/2024 05:47 PM Modules accepted: Orders * Telephone Encounter - Samanta Turner OSA - 02/07/2024 11:41 AM EST calling in the oxygen company needs an order that they are upping his oxygen from 3L to 8L forwalking and fax to them Please fax to: [employer] Att: Navjot Can Dr Mcclellan call the patient, when he gets a chance the patient forgot to ask some additional questions at his appointment. documented in this encounter Plan of Treatment Upcoming Encounters Date Type Department Care Team (Late st Contact Info) Description 04/12/2024 8:00 AM EST Office Visit Pulmonary Medicine, [facility] [address] [place] [address] Rafael Mcclellan MD [address] [place] [address] [...] failure documented in this encounter Care Teams Preservationist Relationship Specialty Start Date End Date Pastora Montilla CRNP [address] [place] [address], [place] [address] PCP - General Nurse Practitioner 08/07/22 documented as of this encounter
--- OUTSIDE RECORDS SUMMARY | 2024-05-29 17:57 | External Medical Summary | Summary of Care ---
Author Name Unknown Organization [facility] Address [address] [place] [address] Phone [phone] Care Team Providers Care Doubler Helper Name Role Phone Pastora Montilla Primary Care Provide r Reason for Visit * Reason Onset Date Comments Advice 02/07/2024 Patient has ronald ional questions can Dr. Pierre call the patient Durable Medical Equipment 02/07/2024 Fax up ped oxygen 3Lto 8L while walking order to [employer] Encounter Details Date Type Department Care Team (Late st Contact Info) Description 02/07/2024 Telephone Pulmonary Medicine, [address] [address] Services, Scheduling [address] [place] [address] Advice (Patient has aditional questions ca... Allergies [...] flora)Indications :ILD (interstitial lung disease) ([facility]),Mild persistent reactive airway disease without [...] 50 MCG/ACT Nasal Suspension (Flonase) Administer 1 [place] into each nostril 2 times a day. [...] and fax to them Please fax to: [employer] Att: Navjot Can Dr Pierre call the patient, when he gets a chance the patient forgot to ask some additional questions at his appointment. documented in this encounter Plan of Treatment Upcoming Encounters Date Type Department Care Team (Late st Contact Info) Description 04/12/2024 8:00 AM EST Office Visit Pulmonary Medicine, [address] [place] [address] Rafael Pierre MD [address] [phone] Health Maintenance Due Date Last Done Comments [...] filedocumented as of this encounter Care Teams Doubler Helper Relationship Specialty Start Date End Date Pastora Montilla CRNP [address] [place], [place] [address] [address] PCP - General Nurse Practitioner 08/07/22 documented as of this encounter
--- OUTSIDE RECORDS SUMMARY | 2024-05-29 17:57 | External Medical Summary | Summary of Care ---
Author Name Unknown Organization [facility] Address [address] [place] [address] Phone [phone] Care Team Providers Care Video Photographer Name Role Phone Pastora Montilla Primary Care Provide r Reason for Visit * Reason Onset Date Comments Advice 02/07/2024 Patient has ronald ional questions can Dr. Mcclellan call the patient Durable Medical Equipment 02/07/2024 Fax up ped oxygen 3Lto 8L while walking order to [employer] Encounter Details Date Type Department Care Team (Late st Contact Info) Description 02/07/2024 Telephone Pulmonary Medicine, [address] [address] Services, Scheduling [address] [place] [address] Advice (Patient has aditional questions ca... 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 [...] Miscellaneous Notes * Telephone Encounter - Rafael Mcclellan MD - 02/07/2024 5:48 PM EST I called and talked to patient. New oxygen therapy orders for 8 LPM during exercise was submitted. Please ensure processing. * Addendum Note - Rafael Mcclellan MD - 02/07/2024 5:47 PM ESTAddended by: RAFAEL MCCLELLAN on: 02/07/2024 05:47 PM Modules accepted: Orders * Telephone Encounter - Samanta Turner OSA - 02/07/2024 11:41 AM EST calling in the oxygen company needs an order that they are upping his oxygen from 3L to 8L forwalking and fax to them Please fax to: [employer] Att: Navjot Can Dr Mcclellan call the patient, when he gets a chance the patient forgot to ask some additional questions at his appointment. documented in this encounter Plan of Treatment Upcoming Encounters Date Type Department Care Team (Late st Contact Info) Description 04/12/2024 8:00 AM EST Office Visit Pulmonary Medicine, [facility] 132 [facility] [place] [address] Rafael Mcclellan MD [address] [place] [address] [address] Health [...] failure documented in this encounter Care Teams Video Photographer Relationship Specialty Start Date End Date Pastora Montilla CRNP [address] [place] [address] PCP - General Nurse Practitioner 08/07/22 documented as of this encounter
--- OUTSIDE RECORDS SUMMARY | 2024-05-29 17:57 | External Medical Summary | Summary of Care ---
Author Name Unknown Organization [facility] Address [address] [place] [address] Phone [phone] Care Team Providers Care Weeder Thinner Name Role Phone Pastora Montilla Primary Care Provide r Encounter Details Date Type Department Care Team (Late st Contact Info) Description 01/25/2024 Orders Only Pulmonary Medicine Sherry Duenas [address] [place] [phone] Rafael Pierre MD [address] [place] [address] [address] ILD (interstitial lung disease) (HCC)*; Chronic respiratory [...] 50 MCG/ACT Nasal Suspension (Flonase) Administer 1 [place] into each nostril 2 times a day. [...] 2:00 PM EST PulmDiagnostic Pulmonary Function Lab, [facility] [address] [place] [address] [place], Pulm Function Tech 2 132 [facility] [place] [address] 02/07/2024 8:40 AM EST Office Visit Pulmonary Medicine, [facility] [address] [place] [address] Rafael Pierre MD [address] [place] [address] [address] Health Maintenance Due Date Last Done Comments [...] failure documented in this encounter Care Teams Weeder Thinner Relationship Specialty Start Date End Date Pastora Montilla CRNP [address] [place], [place] [address] [address] PCP - General Nurse Practitioner 08/07/22 documented as of this encounter
--- OUTSIDE RECORDS SUMMARY | 2024-05-29 17:57 | External Medical Summary | Summary of Care ---
Author Name Unknown Organization [facility] Address [address] [place] [address] Phone [phone] Care Team Providers Care Microsoft Net Developer Name Role Phone Pastora Montilla Primary Care Provide r Reason for Visit * Reason Onset Date Comments Advice 02/07/2024 Patient has ronald ional questions can Dr. Mcclellan call the patient Durable Medical Equipment 02/07/2024 Fax up ped oxygen 3Lto 8L while walking order to [employer] Encounter Details Date Type Department Care Team (Late st Contact Info) Description 02/07/2024 Telephone Pulmonary Medicine, [address] [address] Services, Scheduling [address] [place] [address] Advice (Patient has aditional questions ca... 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 [...] Telephone Encounter - Minerva Dawn LPN - 02/08/2024 9:57 AM EST Order has been sent to [facility] aware * Telephone Encounter - Rafael Mcclellan MD [...] and fax to them Please fax to: [employer] Att: Navjot Can Dr Mcclellan call the patient, when he gets a chance the patient forgot to ask some additional questions at his appointment. documented in this encounter Plan of Treatment Upcoming Encounters Date Type Department Care Team (Late st Contact Info) Description 04/12/2024 8:00 AM EST Office Visit Pulmonary Medicine, [facility] [address] [facility] [place] [id number] Rafael Mcclellan MD [address] [facility] [place] [address] Health Maintenance Due Date [...] failure documented in this encounter Care Teams Microsoft Net Developer Relationship Specialty Start Date End Date Pastora Montilla CRNP [address] [place] [address] [phone] PCP - General Nurse Practitioner 08/07/22 documented as of this encounter
[2024-05-29 18:25] LABS: Appearance Urine Clear (Clear); Bilirubin Urine Negative (Negative); Blood Urine Negative (Negative); Color Urine Yellow; Glucose Urine UA Negative (Negative); Ketones Urine Negative (Negative); Leukocyte Esterase Urine Negative (Negative); Nitrite Urine Negative (Negative); Protein Urine Negative (Negative); Specific Gravity Urine 1.009 (1.000-1.030); Urobilinogen Urine Negative (Negative)
[2024-05-29] MEDS: ICU Protocol for HYPERglycemia SCH (18:39)
[2024-05-29] MEDS: BOSENTAN EXT SCH (20:00)
[2024-05-29] MEDS: OSELTAMIVIR PHOSPHATE 75 MG CAP PO SCH (20:02)
[2024-05-29] MEDS: PANTOprazole 40 MG TAB PO SCH (20:02)
[2024-05-30] MEDS: VANCOMYCIN HCL 1,000 MG/270 ML BAG IV SCH (02:37)
--- OUTSIDE RECORDS SUMMARY | 2024-05-30 02:48 | External Medical Summary | Summary of Care ---
Author Name Unknown Organization [facility] Address [address] [place] [address] Phone [phone] Care Team Providers Care Parachute Supervisor Name Role Phone Pastora Montilla Primary Care Provide r Reason for Visit * Reason Onset Date Comments Sick 05/29/2024 Fever, sob Encounter Details Date Type Department Care Team (Late st Contact Info) Description 05/29/2024 Telephone Pulmonary Medicine, [facility] [address] [facility] [place] [address] Rafael Pierre MD [address] [facility] [place] [phone] Sick (Fever, sob) Allergies No known active allergiesdocumented as of this encounter (statuses as of 05/29/2024) Medications ASPIRIN 81 MG PO TABS one [...] 50 MCG/ACT Nasal Suspension (Flonase) Administer 1 [place] into each nostril 2 times a [...] 0.1 % Nasal Solution (Astelin) Administer 1 [place] into nostril in the morning and [address] [place] before bedtime. 30 mL 12 04/07/2024 11:26 [...] as of this encounter (statuses as of 05/29/2024) Active Problems Problem Noted Date Diagnosed Date [...] as of this encounter (statuses as of 05/29/2024) Immunizations Name Administration Dates Next Due HEP [...] Miscellaneous Notes * Telephone Encounter - Chary Velazquez, TICKET SCHEDULER - 05/29/2024 9:07 AM EDT Pt's calls with concerns: pt has increased cough producing clear phlegm, temp 101.7, sat 92% at rest on O2 6LPM. He is wheezing, but not more than his normal. He had a neb treatment yesterday, with minimal improvement. He is sob with any exertion, but not at rest. He is still in bed, with head elevated to almost 45 degrees. I placed the call on hold and relayed the info to Dr Pierre. He recommends the pt go to the ER forevaluation. Mrs Turner will transport him (she says he isn't in distress and she doesn't feel he needs an ambulance). documented in this encounter Plan of Treatment Upcoming Encounters Date Type Department Care Team (Late st Contact Info) Description 08/14/2024 9:30 AM EDT [facility] [address] [place] [phone] 08/15/2024 9:30 AM EDT Office Visit Pulmonary Medicine, [facility] [address] [place] [address] Rafael Pierre MD [address] [place] [phone] Health Maintenance Due Date Last Done Comments [...] filedocumented as of this encounter Care Teams Parachute Supervisor Relationship Specialty Start Date End Date Pastora Montilla CRNP [address] [place], [place] [address] [phone] PCP - General Nurse Practitioner 08/07/22 documented as of this encounter
[2024-05-30] MEDS: guaiFENesin/CODEINE 100MG/10MG 5ML UDC PO STA (03:06)
[2024-05-30 05:05] LABS: Basophils # (auto) 0.03 K/uL (0.00-0.20); Basophils % (auto) 0.2 %; Eosinophils # (auto) 0.01 K/uL (0.00-0.50); Eosinophils % (auto) 0.1 %; Hematocrit (blood only) 36.3 % (42.0-52.0); Hemoglobin 12.3 g/dl (14.0-18.0); Immature Granulocytes # (auto) 0.08 K/uL (0.01-0.20); Immature Granulocytes % (auto) 0.6 %; Lymphocytes # (auto) 1.32 K/uL (1.20-3.40); Lymphocytes % (auto) 10.7 %; Mean Corpuscular Hemoglobin 30.4 pg (25.0-34.0); Mean Corpuscular Hgb Conc 33.9 g/dL (32.0-36.0); Mean Corpuscular Volume 89.6 fL (80.0-100.0); Mean Platelet Volume 10.2 fL (9.4-12.4); Monocytes # (auto) 0.95 K/uL (0.11-0.59); Monocytes % (auto) 7.7 %; Neutrophils # (auto) 9.95 K/uL (1.40-6.50); Neutrophils % (auto) 80.7 %; Platelet Count 155 K/uL (130-400); RDW Coefficient of Variation 15.9 % (11.5-14.5); RDW Standard Deviation 52.8 fL (36.4-46.3); Red Blood Count 4.05 M/uL (4.70-6.10); White Blood Count 12.34 K/ul (4.8-10.8)
[2024-05-30 05:23] LABS: BUN Creatinine Ratio 19.4 (10-20); Potassium 3.9 mmol/L (3.5-5.1)
--- NOTE | 2024-05-30 07:06 | Critical Care Progress Note ---
Date of Service May 30, 2024 Assessment & Plan (1) Acute on chronic hypoxic respiratory failure: Plan: Reason Critically Ill: 73-year-old male with ILD who presents with worsening acute on chronic hypoxic respiratory failure PLAN: Neuro: Anxiety -Consider morphine versus anxiolytics versus dexmedetomidine Resp: Acute on chronic hypoxic respiratory failure -Continue NIV and wean as tolerated -Consider high flow nasal cannula to allow for oral intake -Decadron 6 mg IV daily Pulmonary hypertension -On pirfenidone 534 mg 3 times daily as well as bosentan Fluids/Renal: Mild hyponatremia, mild hypomagnesemia -Replete magnesium ID: [employer] reviewed, MRSA nasal swab pending, blood cultures obtained -Vancomycin, azithromycin, cefepime -Tamiflu 75 mg twice daily GI/Nutrition: liquid diet as diet -Consider high flow nasal cannula to allow for enteral nutrition Heme: Anemia NOS DVT prophylaxis: Lovenox 40 mg subcu Endocrine: ICU hyperglycemia protocol Vascular access: Peripheral IVs Code Status: DO NOT RESUSCITATE in event of cardiac arrest, okay with intubation for respiratory insufficiency, does not desire tracheostomy for chronic respiratory failure Disposition: ICU (2) Influenza A: (3) Hypoxia: (4) Interstitial lung disease: Admission and Anticipated Discharge Date Admission Date: May 29, 2024 Supervising Physician Co-Signing Physician Notes I have personally spent 45 minutes of critical care time in the direct management of this patient. This is a life/limb threatening event. This includes time spent evaluating patient, direct bedside care, chart review, placing orders, interpretation of diagnostic studies, discussion with consultants, patient, and/or family members regarding treatment decisions, as well as other required patient management activities. This time is exclusive of all separately billable procedures, and teaching time and separate from and in addition to any other critical care service time. Subjective Intermittently switching from BiPAP to high flow nasal cannula, experiencing coughing episodes which he desaturates and having increasing the length and hypoxic recovery. Patient by enlarge not feeling improved nor worse. Physical Exam Physical Exam: General: Alert. nontoxic. Skin: Warm, dry, Head: Atraumatic Ears, nose, mouth and throat: airway patent: BiPAP mask in place Cardiovascular: Normal peripheral perfusion Respiratory: tachypnea into 30s, recent coughing episode, minimal accessory muscle use, able to speak in 7-10 word sentences, does not drop during conversation with supplemental oxygen at 45% Gastrointestinal: Non distended Musculoskeletal: No deformity Results & Data Results & Data Vital Signs (Past 12 Hours) Vital Signs Temp Pulse Pulse Resp BP Pulse Ox O2 Del Method 05/30/24 05:15 85 29 H 94 05/30/24 05:00 122/68 05/30/24 05:00 122/68 05/30/24 05:00 122/68 05/30/24 05:00 122/68 05/30/24 05:00 122/68 05/30/24 05:00 122/68 05/30/24 05:00 122/68 05/30/24 05:00 122/68 05/30/24 05:00 122/68 05/30/24 05:00 122/68 05/30/24 05:00 122/68 05/30/24 05:00 122/68 05/30/24 05:00 122/68 05/30/24 05:00 122/68 05/30/24 05:00 122/68 05/30/24 05:00 122/68 05/30/24 05:00 122/68 05/30/24 05:00 122/68 05/30/24 05:00 122/68 05/30/24 05:00 122/68 05/30/24 05:00 122/68 05/30/24 04:54 91 H 29 H 93 05/30/24 04:00 117/71 05/30/24 04:00 117/71 05/30/24 04:00 117/71 05/30/24 04:00 117/71 05/30/24 04:00 117/71 05/30/24 04:00 117/71 05/30/24 04:00 117/71 05/30/24 04:00 117/71 05/30/24 04:00 117/71 05/30/24 04:00 117/71 05/30/24 04:00 117/71 05/30/24 04:00 117/71 05/30/24 04:00 117/71 05/30/24 04:00 117/71 05/30/24 04:00 117/71 05/30/24 04:00 117/71 05/30/24 04:00 117/71 05/30/24 04:00 117/71 05/30/24 04:00 117/71 05/30/24 04:00 84 28 H 97 05/30/24 03:00 131/73 05/30/24 03:00 131/73 05/30/24 03:00 131/73 05/30/24 03:00 131/73 05/30/24 03:00 131/73 05/30/24 03:00 131/73 05/30/24 03:00 131/73 05/30/24 03:00 94 H 35 H 97 05/30/24 03:00 131/73 05/30/24 03:00 131/73 05/30/24 03:00 131/73 05/30/24 03:00 131/73 05/30/24 03:00 131/73 05/30/24 03:00 131/73 05/30/24 03:00 131/73 05/30/24 03:00 131/73 05/30/24 03:00 131/73 05/30/24 03:00 131/73 05/30/24 02:55 85 34 H 90 05/30/24 02:18 85 38 H 93 05/30/24 02:00 136/74 05/30/24 02:00 136/74 05/30/24 02:00 136/74 05/30/24 02:00 136/74 05/30/24 02:00 136/74 05/30/24 02:00 136/74 05/30/24 02:00 136/74 05/30/24 02:00 136/74 05/30/24 02:00 136/74 05/30/24 02:00 136/74 05/30/24 02:00 136/74 05/30/24 02:00 136/74 05/30/24 02:00 136/74 05/30/24 02:00 136/74 05/30/24 02:00 136/74 05/30/24 02:00 136/74 05/30/24 02:00 136/74 05/30/24 02:00 136/74 05/30/24 02:00 136/74 05/30/24 02:00 136/74 05/30/24 02:00 136/74 05/30/24 02:00 136/74 05/30/24 01:48 72 27 H 98 05/30/24 01:06 72 25 H 98 05/30/24 01:00 11172 05/30/24 01:00 111/72 05/30/24 01:00 11172 05/30/24 01:00 11172 05/30/24 01:00 11172 05/30/24 01:00 11172 05/30/24 01:00 11172 05/30/24 01:00 11172 05/30/24 01:00 11172 05/30/24 01:00 11172 05/30/24 01:00 11172 05/30/24 01:00 11172 05/30/24 00:52 96 H 05/30/24 00:21 83 28 H 90 High Flow Nasal Cannula 05/29/24 23:53 37.1 C 05/29/24 23:00 70 26 H 93 05/29/24 21:39 05/29/24 21:27 65 23 107/69 95 05/29/24 21:00 66 26 H 99/65 L 94 05/29/24 20:30 67 26 H 98/62 L 96 05/29/24 20:03 77 34 H 110/59 L 88 L 05/29/24 20:00 79 24 90 High Flow Nasal Cannula 05/29/24 19:57 74 24 92 05/29/24 19:41 36.7 C 05/29/24 19:38 High Flow Nasal Cannula 05/29/24 19:30 82 29 H 110/68 89 L O2 Flow Rate FiO2 05/30/24 05:15 05/30/24 05:00 05/30/24 05:00 05/30/24 05:00 05/30/24 05:00 05/30/24 05:00 05/30/24 05:00 05/30/24 05:00 05/30/24 05:00 05/30/24 05:00 05/30/24 05:00 05/30/24 05:00 05/30/24 05:00 05/30/24 05:00 05/30/24 05:00 05/30/24 05:00 05/30/24 05:00 05/30/24 05:00 05/30/24 05:00 05/30/24 05:00 05/30/24 05:00 05/30/24 05:00 05/30/24 04:54 05/30/24 04:00 05/30/24 04:00 05/30/24 04:00 05/30/24 04:00 05/30/24 04:00 05/30/24 04:00 05/30/24 04:00 05/30/24 04:00 05/30/24 04:00 05/30/24 04:00 05/30/24 04:00 05/30/24 04:00 05/30/24 04:00 05/30/24 04:00 05/30/24 04:00 05/30/24 04:00 05/30/24 04:00 05/30/24 04:00 05/30/24 04:00 05/30/24 04:00 05/30/24 03:00 05/30/24 03:00 05/30/24 03:00 05/30/24 03:00 05/30/24 03:00 05/30/24 03:00 05/30/24 03:00 05/30/24 03:00 05/30/24 03:00 05/30/24 03:00 05/30/24 03:00 05/30/24 03:00 05/30/24 03:00 05/30/24 03:00 05/30/24 03:00 05/30/24 03:00 05/30/24 03:00 05/30/24 03:00 05/30/24 02:55 70 05/30/24 02:18 05/30/24 02:00 05/30/24 02:00 05/30/24 02:00 05/30/24 02:00 05/30/24 02:00 05/30/24 02:00 05/30/24 02:00 05/30/24 02:00 05/30/24 02:00 05/30/24 02:00 05/30/24 02:00 05/30/24 02:00 05/30/24 02:00 05/30/24 02:00 05/30/24 02:00 05/30/24 02:00 05/30/24 02:00 05/30/24 02:00 05/30/24 02:00 05/30/24 02:00 05/30/24 02:00 05/30/24 02:00 05/30/24 01:48 05/30/24 01:06 05/30/24 01:00 05/30/24 01:00 05/30/24 01:00 05/30/24 01:00 05/30/24 01:00 05/30/24 01:00 05/30/24 01:00 05/30/24 01:00 05/30/24 01:00 05/30/24 01:00 05/30/24 01:00 05/30/24 01:00 05/30/24 00:52 05/30/24 00:21 50 100 05/29/24 23:53 05/29/24 23:00 70 05/29/24 21:39 40 70 05/29/24 21:27 05/29/24 21:00 05/29/24 20:30 05/29/24 20:03 05/29/24 20:00 35 55 05/29/24 19:57 05/29/24 19:41 05/29/24 19:38 35 55 05/29/24 19:30 Critical Care Results & Data Vital Signs (Past 12 Hours) Vital Signs Temp Pulse Pulse Resp BP Pulse Ox O2 Del Method 05/30/24 05:15 85 29 H 94 05/30/24 05:00 122/05/30/24 05:00 122/05/30/24 05:00 122/68 05/30/24 05:00 122/68 05/30/24 05:00 122/68 05/30/24 05:00 122/68 05/30/24 05:00 122/68 05/30/24 05:00 122/68 05/30/24 05:00 122/68 05/30/24 05:00 122/68 05/30/24 05:00 122/68 05/30/24 05:00 122/68 05/30/24 05:00 122/68 05/30/24 05:00 122/68 05/30/24 05:00 122/68 05/30/24 05:00 122/68 05/30/24 05:00 122/68 05/30/24 05:00 122/68 05/30/24 05:00 122/68 05/30/24 05:00 122/68 05/30/24 05:00 122/68 05/30/24 04:54 91 H 29 H 93 05/30/24 04:00 117/71 05/30/24 04:00 117/71 05/30/24 04:00 117/71 05/30/24 04:00 117/71 05/30/24 04:00 117/71 05/30/24 04:00 117/71 05/30/24 04:00 117/71 05/30/24 04:00 117/71 05/30/24 04:00 117/71 05/30/24 04:00 117/71 05/30/24 04:00 117/71 05/30/24 04:00 117/71 05/30/24 04:00 117/71 05/30/24 04:00 117/71 05/30/24 04:00 117/71 05/30/24 04:00 117/71 05/30/24 04:00 117/05/30/24 04:00 117/71 05/30/24 04:00 117/71 05/30/24 04:00 84 28 H 97 05/30/24 03:00 131/73 05/30/24 03:00 131/73 05/30/24 03:00 131/73 05/30/24 03:00 131/73 05/30/24 03:00 131/73 05/30/24 03:00 131/73 05/30/24 03:00 131/73 05/30/24 03:00 94 H 35 H 97 05/30/24 03:00 131/73 05/30/24 03:00 131/73 05/30/24 03:00 131/73 05/30/24 03:00 131/73 05/30/24 03:00 131/73 05/30/24 03:00 131/73 05/30/24 03:00 131/73 05/30/24 03:00 131/73 05/30/24 03:00 131/73 05/30/24 03:00 131/73 05/30/24 02:55 85 34 H 90 05/30/24 02:18 85 38 H 93 05/30/24 02:00 136/74 05/30/24 02:00 136/74 05/30/24 02:00 136/74 05/30/24 02:00 136/74 05/30/24 02:00 136/74 05/30/24 02:00 136/74 05/30/24 02:00 136/74 05/30/24 02:00 136/74 05/30/24 02:00 136/74 05/30/24 02:00 136/74 05/30/24 02:00 136/74 05/30/24 02:00 136/74 05/30/24 02:00 136/74 05/30/24 02:00 136/74 05/30/24 02:00 136/74 05/30/24 02:00 136/74 05/30/24 02:00 136/74 05/30/24 02:00 136/74 05/30/24 02:00 136/74 05/30/24 02:00 136/74 05/30/24 02:00 136/74 05/30/24 02:00 136/74 05/30/24 01:48 72 27 H 98 05/30/24 01:06 72 25 H 98 05/30/24 01:00 111/72 05/30/24 01:00 111/72 05/30/24 01:00 111/72 05/30/24 01:00 111/72 05/30/24 01:00 111/72 05/30/24 01:00 111/72 05/30/24 01:00 111/72 05/30/24 01:00 111/72 05/30/24 01:00 111/72 05/30/24 01:00 111/72 05/30/24 01:00 111/72 05/30/24 01:00 111/72 05/30/24 00:52 96 H 05/30/24 00:21 83 28 H 90 High Flow Nasal Cannula 05/29/24 23:53 37.1 C 05/29/24 23:00 70 26 H 93 05/29/24 21:39 05/29/24 21:27 65 23 107/69 95 05/29/24 21:00 66 26 H 99/65 L 94 05/29/24 20:30 67 26 H 98/62 L 96 05/29/24 20:03 77 34 H 110/59 L 88 L 05/29/24 20:00 79 24 90 High Flow Nasal Cannula 05/29/24 19:57 74 24 92 05/29/24 19:41 36.7 C 05/29/24 19:38 High Flow Nasal Cannula 05/29/24 19:30 82 29 H 110/68 89 L O2 Flow Rate FiO2 05/30/24 05:15 05/30/24 05:00 05/30/24 05:00 05/30/24 05:00 05/30/24 05:00 05/30/24 05:00 05/30/24 05:00 05/30/24 05:00 05/30/24 05:00 05/30/24 05:00 05/30/24 05:00 05/30/24 05:00 05/30/24 05:00 05/30/24 05:00 05/30/24 05:00 05/30/24 05:00 05/30/24 05:00 05/30/24 05:00 05/30/24 05:00 05/30/24 05:00 05/30/24 05:00 05/30/24 05:00 05/30/24 04:54 05/30/24 04:00 05/30/24 04:00 05/30/24 04:00 05/30/24 04:00 05/30/24 04:00 05/30/24 04:00 05/30/24 04:00 05/30/24 04:00 05/30/24 04:00 05/30/24 04:00 05/30/24 04:00 05/30/24 04:00 05/30/24 04:00 05/30/24 04:00 05/30/24 04:00 05/30/24 04:00 05/30/24 04:00 05/30/24 04:00 05/30/24 04:00 05/30/24 04:00 05/30/24 03:00 05/30/24 03:00 05/30/24 03:00 05/30/24 03:00 05/30/24 03:00 05/30/24 03:00 05/30/24 03:00 05/30/24 03:00 05/30/24 03:00 05/30/24 03:00 05/30/24 03:00 05/30/24 03:00 05/30/24 03:00 05/30/24 03:00 05/30/24 03:00 05/30/24 03:00 05/30/24 03:00 05/30/24 03:00 05/30/24 02:55 70 05/30/24 02:18 05/30/24 02:00 05/30/24 02:00 05/30/24 02:00 05/30/24 02:00 05/30/24 02:00 05/30/24 02:00 05/30/24 02:00 05/30/24 02:00 05/30/24 02:00 05/30/24 02:00 05/30/24 02:00 05/30/24 02:00 05/30/24 02:00 05/30/24 02:00 05/30/24 02:00 05/30/24 02:00 05/30/24 02:00 05/30/24 02:00 05/30/24 02:00 05/30/24 02:00 05/30/24 02:00 05/30/24 02:00 05/30/24 01:48 05/30/24 01:06 05/30/24 01:00 05/30/24 01:00 05/30/24 01:00 05/30/24 01:00 05/30/24 01:00 05/30/24 01:00 05/30/24 01:00 05/30/24 01:00 05/30/24 01:00 05/30/24 01:00 05/30/24 01:00 05/30/24 01:00 05/30/24 00:52 05/30/24 00:21 50 100 05/29/24 23:53 05/29/24 23:00 70 05/29/24 21:39 40 70 05/29/24 21:27 05/29/24 21:00 05/29/24 20:30 05/29/24 20:03 05/29/24 20:00 35 55 05/29/24 19:57 05/29/24 19:41 05/29/24 19:38 35 55 05/29/24 19:30 Lab & Micro Results (Past 24 Hours) RBC 4.05 M/uL (4.70-6.10) L 05/30/24 WBC 12.34 K/ul (4.8-10.8) H 05/30/24 Hgb 12.3 g/dl (14.0-18.0) L 05/30/24 Hct 36.3 % (42.0-52.0) L 05/30/24 MCV 89.6 fL (80.0-100.0) 05/30/24 MCH 30.4 pg (25.0-34.0) 05/30/24 MCHC 33.9 g/dL (32.0-36.0) 05/30/24 RDW Standard Deviation 52.8 fL (36.4-46.3) H 05/30/24 RDW Coefficient of Variation 15.9 % (11.5-14.5) H 05/30/24 Plt Count 155 K/uL (130-400) 05/30/24 MPV 10.2 fL (9.4-12.4) 05/30/24 Neutrophils (%) (Auto) 80.7 % 05/30/24 Lymphocytes (%) (Auto) 10.7 % 05/30/24 Monocytes # (Auto) 0.95 K/uL (0.11-0.59) H 05/30/24 Eosinophils # (Auto) 0.01 K/uL (0.00-0.50) 05/30/24 Immature Granulocyte % (Auto) 0.6 % 05/30/24 Neutrophils # (Auto) 9.95 K/uL (1.40-6.50) H 05/30/24 Lymphocytes # (Auto) 1.32 K/uL (1.20-3.40) 05/30/24 Monocytes # (Auto) 0.95 K/uL (0.11-0.59) H 05/30/24 Eosinophils # (Auto) 0.01 K/uL (0.00-0.50) 05/30/24 Basophils # (Auto) 0.03 K/uL (0.00-0.20) 05/30/24 Immature Granulocyte # (Auto) 0.08 K/uL (0.01-0.20) 5 Na 132 mmol/L (136-145) L 05/30/24 K 3.9 mmol/L (3.5-5.1) 05/30/24 Cl 103 mmol/L (98-107) 05/30/24 CO2 27 mmol/L (21-32) 05/30/24 Anion Gap 2 (3-11) L 05/30/24 BUN 13 mg/dl (6-23) 05/30/24 Creatinine 0.67 mg/dl (0.6-1.4) 05/30/24 BUN/Creatinine Ratio 19.4 (10-20) 05/30/24 Glu 127 mg/dl (70-99(Fasting)) H 05/30/24 Ca 9.0 mg/dl (8.6-10.3) 05/30/24 Total Bilirubin 0.4 mg/dl (0.2-1.0) 05/29/24 Direct Bilirubin 0.1 mg/dl (0-0.2) 05/29/24 AST 25 U/L (13-39) 05/29/24 ALT 8 U/L (7-52) 05/29/24 Alkaline Phosphatase 67 U/L (34-104) 05/29/24 TP 8.3 gm/dl (6.0-8.3) 05/29/24 Albumin 3.6 gm/dl (3.4-5.0) 05/29/24 Mg 1.6 mg/dl (1.7-2.4) L 05/29/24 11:30 Calcium Level 9.0 mg/dl (8.6-10.3) 05/30/24 04:49 Prothromb Time International Ratio 1.1 (0.9-1.1) 05/29/24 11:3 0 Venous Blood pH 7.44 (7.36-7.41) H 05/29/24 15:31 Venous Blood Partial Pressure CO2 38 mmHg (38-50) 05/29/24 15:3 1 Venous Blood Partial Pressure O2 49 mmHg 05/29/24 15:31 Venous Blood HCO3 26 mmol/L 05/29/24 15:31 Venous Blood Base Excess 1.7 mEq/L 05/29/24 15:31 Venous Blood Oxygen Saturation 84.1 % 05/29/24 15:31 Microbiology 05/29/24 11:32 Aerobic Blood Culture - Preliminary Blood Diagnostic Findings (Past 24 Hours) Chest X-Ray 05/29/24 11:19 XR chest 1V portable CLINICAL HISTORY: Sepsis COMPARISON STUDY: 06/26/2022 FINDINGS: There is stable cardiomegaly without pulmonary vascular congestion. There is progressive diffuse interstitial pulmonary opacity. There is interval hazy and patchy opacity throughout the left lung. No pleural effusion or pneumothorax. IMPRESSION: 1. Findings suggestive of progressive interstitial lung disease. 2. Findings consistent with superimposed pneumonia at the left lung. ACT 112: Negative or not required by law. Electronically signed by: Deshaun Nix M.D. 05/29/2024 11:42 AM I & O Totals 24 Hours 05/29/24 05/30/24 05/31/24 06:59 06:59 06:59 Intake Total 1320 / 1320 Output Total 1776 / 1776 Balance -456 / -456 Cumulative 05/29/24 10:59 thru 05/30/24 05:51 Intake Total 1320 Output Total 1776 Balance -456 RT Ventilator Mngmt (Last Documented) Ventilator Ordered Settings Respiratory Rate 29 05/30/24 05:15 Fraction of Inspired Oxygen 70 05/30/24 02:55 Ventilator - PT Measurements Respiratory Rate 29 Coding Level of Care Code 88121 CRITICAL CARE 1ST 30-74M Diagnoses Acute on chronic hypoxic respiratory failure J96.21 Influenza A J10.1 Hypoxia R09.02 Interstitial lung disease J84.9
--- NOTE | 2024-05-30 08:19 | Pulmonology Progress Note ---
Date of Service May 30, 2024 Assessment & Plan (1) Influenza A: (2) Acute on chronic hypoxic respiratory failure: (3) Multifocal pneumonia: (4) Pulmonary hypertension: (5) Interstitial lung disease: Plan 2D echo 01/24/2024: EF 60-65%, moderate concentric LVH, moderate TR, RVSP 60 mmHg, grade 1 diastolic dysfunction -- Acute on chronic hypoxic respiratory failure Likely secondary to influenza A pneumonia on top of underlying severe ILD Respiratory BioFire was positive for influenza A, negative for everything else Procalcitonin negative, nasal MRSA negative BNP 70 --Chronic hypoxic respiratory failure On 3-7 L of oxygen at home On Breo 100 at home --Pulmonary hypertension Likely type III Given that the patient is on bosentan, he likely has cardiac cath proven primary pulmonary hypertension on top. Will try to review the records from [facility] On pirfenidone 534 mg 3 times daily as well as bosentan Following up with [facility] pulmonary --DNR Okay to intubate, no tracheostomy Plan: Continue with oseltamivir to be given for 5 days. Continue with atypical coverage with azithromycin. QTc 430 Please note the above document was generated using voice recognition software. It may contain grammatical, syntax or spelling errors.Any formal questions or concerns about the content, text or information contained within the body of this dictation should be directly addressed to the provider for clarification. Admission and Anticipated Discharge Date Admission Date: May 29, 2024 Subjective Patient seen and examined at bedside. In respiratory distress He was on CPAP 100%, saturation was 97% with respiratory rate in the mid to high 30s He stated that he did not get a good night sleep. Still complaining of shortness of breath. Bringing up copious amount of phlegm. Brownish in color. No hemoptysis Poor appetite Review of Systems 2 Review of Systems: All systems reviewed & are unremarkable except as noted in Subjective Physical Exam 2 Physical Exam: Constitutional: In respiratory distress HEENT: EOMI, PERRLA Respiratory system: Decreased air entry bilaterally, no wheeze, no rhonchi, positive Velcro-like crackles appreciated bilaterally CVS: S1-S2 positive, positive 2 out of 6 systolic murmur appreciated best at aorta Abdomen: Soft, nontender, nondistended, positive bowel sounds x4 Extremities: +2 pulses bilaterally radialis/ dorsalis pedis, no cyanosis, minimal pitting edema bilateral lower extremity Neuro: Awake alert oriented x3 Psych: Normal mood and affect G/U: No Orr Skin: no rashes, warm and dry Lymphatic: no cervical or axillary lymphadenopathy Results & Data Results & Data Vital Signs (Past 12 Hours) Vital Signs Temp Pulse Pulse Resp BP Pulse Ox O2 Del Method 05/30/24 05:15 85 29 H 94 05/30/24 05:00 122/05/30/24 05:00 122/05/30/24 05:00 122/05/30/24 05:00 122/05/30/24 05:00 122/05/30/24 05:00 122/05/30/24 05:00 122/05/30/24 05:00 122/05/30/24 05:00 122/05/30/24 05:00 12205/30/24 05:00 122/05/30/24 05:00 122/05/30/24 05:00 122/05/30/24 05:00 122/68 05/30/24 05:00 122/68 05/30/24 05:00 122/68 05/30/24 05:00 122/68 05/30/24 05:00 122/68 05/30/24 05:00 122/68 05/30/24 05:00 122/68 05/30/24 05:00 122/68 05/30/24 04:54 91 H 29 H 93 05/30/24 04:00 117/71 05/30/24 04:00 117/71 05/30/24 04:00 117/71 05/30/24 04:00 117/71 05/30/24 04:00 117/71 05/30/24 04:00 117/71 05/30/24 04:00 117/71 05/30/24 04:00 117/71 05/30/24 04:00 117/71 05/30/24 04:00 117/71 05/30/24 04:00 117/71 05/30/24 04:00 117/71 05/30/24 04:00 117/71 05/30/24 04:00 117/71 05/30/24 04:00 117/71 05/30/24 04:00 117/71 05/30/24 04:00 117/71 05/30/24 04:00 117/71 05/30/24 04:00 117/71 05/30/24 04:00 84 28 H 97 05/30/24 03:00 131/73 05/30/24 03:00 131/73 05/30/24 03:00 131/73 05/30/24 03:00 131/73 05/30/24 03:00 131/73 05/30/24 03:00 131/73 05/30/24 03:00 131/73 05/30/24 03:00 94 H 35 H 97 05/30/24 03:00 131/73 05/30/24 03:00 131/73 05/30/24 03:00 131/73 05/30/24 03:00 131/73 05/30/24 03:00 131/73 05/30/24 03:00 131/73 05/30/24 03:00 131/73 05/30/24 03:00 131/73 05/30/24 03:00 131/73 05/30/24 03:00 131/73 05/30/24 02:55 85 34 H 90 05/30/24 02:18 85 38 H 93 05/30/24 02:00 136/74 05/30/24 02:00 136/74 05/30/24 02:00 136/74 05/30/24 02:00 136/74 05/30/24 02:00 136/74 05/30/24 02:00 136/74 05/30/24 02:00 136/74 05/30/24 02:00 136/74 05/30/24 02:00 136/74 05/30/24 02:00 136/74 05/30/24 02:00 136/74 05/30/24 02:00 136/74 05/30/24 02:00 136/74 05/30/24 02:00 136/74 05/30/24 02:00 136/74 05/30/24 02:00 136/74 05/30/24 02:00 136/74 05/30/24 02:00 136/74 05/30/24 02:00 136/74 05/30/24 02:00 136/74 05/30/24 02:00 136/74 05/30/24 02:00 136/74 05/30/24 01:48 72 27 H 98 05/30/24 01:06 72 25 H 98 05/30/24 01:00 111/72 05/30/24 01:00 111/72 05/30/24 01:00 111/72 05/30/24 01:00 111/72 05/30/24 01:00 111/72 05/30/24 01:00 [id number] 05/30/24 01:00 [id number] 05/30/24 01:00 111/72 05/30/24 01:00 111/72 05/30/24 01:00 111/72 05/30/24 01:00 111/72 05/30/24 01:00 [id number] 05/30/24 00:52 96 H 05/30/24 00:21 83 28 H 90 High Flow Nasal Cannula 05/29/24 23:53 37.1 C 05/29/24 23:00 70 26 H 93 05/29/24 21:39 05/29/24 21:27 65 23 107/69 95 05/29/24 21:00 66 26 H 99/65 L 94 05/29/24 20:30 67 26 H 98/62 L 96 O2 Flow Rate FiO2 05/30/24 05:15 05/30/24 05:00 05/30/24 05:00 05/30/24 05:00 05/30/24 05:00 05/30/24 05:00 05/30/24 05:00 05/30/24 05:00 05/30/24 05:00 05/30/24 05:00 05/30/24 05:00 05/30/24 05:00 05/30/24 05:00 05/30/24 05:00 05/30/24 05:00 05/30/24 05:00 05/30/24 05:00 05/30/24 05:00 05/30/24 05:00 05/30/24 05:00 05/30/24 05:00 05/30/24 05:00 05/30/24 04:54 05/30/24 04:00 05/30/24 04:00 05/30/24 04:00 05/30/24 04:00 05/30/24 04:00 05/30/24 04:00 05/30/24 04:00 05/30/24 04:00 05/30/24 04:00 05/30/24 04:00 05/30/24 04:00 05/30/24 04:00 05/30/24 04:00 05/30/24 04:00 05/30/24 04:00 05/30/24 04:00 05/30/24 04:00 05/30/24 04:00 05/30/24 04:00 05/30/24 04:00 05/30/24 03:00 05/30/24 03:00 05/30/24 03:00 05/30/24 03:00 05/30/24 03:00 05/30/24 03:00 05/30/24 03:00 05/30/24 03:00 05/30/24 03:00 05/30/24 03:00 05/30/24 03:00 05/30/24 03:00 05/30/24 03:00 05/30/24 03:00 05/30/24 03:00 05/30/24 03:00 05/30/24 03:00 05/30/24 03:00 05/30/24 02:55 70 05/30/24 02:18 05/30/24 02:00 05/30/24 02:00 05/30/24 02:00 05/30/24 02:00 05/30/24 02:00 05/30/24 02:00 05/30/24 02:00 05/30/24 02:00 05/30/24 02:00 05/30/24 02:00 05/30/24 02:00 05/30/24 02:00 05/30/24 02:00 05/30/24 02:00 05/30/24 02:00 05/30/24 02:00 05/30/24 02:00 05/30/24 02:00 05/30/24 02:00 05/30/24 02:00 05/30/24 02:00 05/30/24 02:00 05/30/24 01:48 05/30/24 01:06 05/30/24 01:00 05/30/24 01:00 05/30/24 01:00 05/30/24 01:00 05/30/24 01:00 05/30/24 01:00 05/30/24 01:00 05/30/24 01:00 05/30/24 01:00 05/30/24 01:00 05/30/24 01:00 05/30/24 01:00 05/30/24 00:52 05/30/24 00:21 50 100 05/29/24 23:53 05/29/24 23:00 70 05/29/24 21:39 40 70 05/29/24 21:27 05/29/24 21:00 05/29/24 20:30 Laboratory Results 05/30/24 04:49 05/30/24 04:49 PG Care Time/CCT Total # of Minutes Spent Total Time Spent with Patient: Total time spent is greater than 50% in coordination of care (as documented) at patient's floor/unit and/or counseling patient: Coding Level of Care Code 64419 SUB INP/OBS CARE 3/50MIN Diagnoses Influenza A J10.1 Acute on chronic hypoxic respiratory failure J96.21 Multifocal pneumonia J18.9 Pulmonary hypertension I27.20 Interstitial lung disease J84.9
[2024-05-30] MEDS ORDERED: BOSENTAN PO SCH (09:00)
[2024-05-30] MEDS ORDERED: DEXAMETHASONE SOD INJ 4 MG/ML VIAL IV SCH (09:00)
[2024-05-30] MEDS: dexAMETHasone 6 MG in SYRINGE 0 ML IV SCH (09:06)
[2024-05-30] MEDS: ENOXAPARIN INJ 40 MG/0.4 ML SYR SQ SCH (09:06)
[2024-05-30] MEDS: ATORVASTATIN 40 MG TAB PO SCH (11:35)
[2024-05-30] MEDS: ASPIRIN 81 MG ECTAB PO SCH (11:35)
[2024-05-30] MEDS: OMEGA-3 (PURIFIED FISH OIL) 1 GM CAP PO SCH (11:36)
[2024-05-30] MEDS: CHOLECALCIFEROL 25 MCG (1000 UNITS) TAB PO SCH (11:36)
[2024-05-30] MEDS: UMECLIDINIUM/VILANTEROL 62.5/25MCG 7 PUFFS/INHALER INH SCH (11:37)
[2024-05-30] MEDS: FLUTICASONE FUROATE 100MCG 14 PUFFS/INHALER INH SCH (11:37)
[2024-05-30] MEDS ORDERED: VANCOMYCIN LEVEL ONE (13:00)
--- NOTE | 2024-05-30 13:20 | Hospitalist Progress Note ---
Date of Service May 30, 2024 Assessment & Plan (1) Influenza A: (2) Acute on chronic hypoxic respiratory failure: (3) Multifocal pneumonia: (4) Interstitial lung disease: (5) Pulmonary hypertension: (6) GERD (gastroesophageal reflux disease): (7) History of prostate cancer: (8) Reactive airway disease: (9) Hyponatremia: Plan #Acute on chronic hypoxic respiratory failure - * acute component - fluA infection, probable left-sided bacterial pneumonia, ILD exacerbation - SEVERE acute decompensation * chronic components - severe/progressive ILD, severe pulmonary HTN * cont HFNC alternating with CPAP * prognosis is guarded; very high risk of progressive resp failure leading to intubation/mech ventilation * as of this am patient is ok with intubation/mech ventilation but no chest compressions/shocks #Influenza A, suspected left-sided superimposed pneumonia - * day #2 of 5 of Tamiflu 75mg BID * day #2 of IV steroids; received 10mg load of dexamethasone yesterday, now on 6mg IV daily of same * day #2 of IV abx - cefepime/zithromax; MRSA swab neg - defer on coverage * droplet precautions * respiratory support - HFNC/CPAP * nebs, other supportive care #baseline severe ILD - * with resulting chronic hypoxic resp failure on home O2 - 3L at rest, 6L with activity * steroids as above, supportive care * continue pirfenidone TID per home dosing #severe pulmonary HTN - * continue bostentan * last ECHO 01/2024 -- EF 60-65%, no regional wall motion abnormalities. RVSP 6 0. Normal RV function #DVT prophylaxis: Lovenox care d/w Dr Garcia, ICU attending care d/w pt's daughter at bedside Admission and Anticipated Discharge Date Admission Date: May 29, 2024 Subjective patient lying in bed on maxed out HFNC settings along with 100% nonrebreather mask placed on top of such daughter at bedside he reports dyspnea, cough with sputum production, poor appetite, and simply feeling poorly he is alternating HFNC with CPAP Physical Exam Physical Exam: gen - lying in bed, tachypneic, breathless when talking neck - no JVD mouth - MMM heart - RRR, s1 s2 lungs - diffuse rales b/l anteriorly and posteriorly, tachypnea, mild retractions abd - soft NT ND BS+ ext - no edema, pulses 2+ b/l Results & Data Results & Data Vital Signs (Past 12 Hours) Vital Signs Pulse Pulse Resp BP Pulse Ox O2 Del Method O2 Flow Rate 05/30/24 12:46 85 25 H 93 05/30/24 12:03 84 29 H 106/66 90 High Flow Nasal Cannula 60 05/30/24 11:27 94 H 28 H 93 High Flow Nasal Cannula 60 05/30/24 11:00 86 31 H 121/73 98 05/30/24 10:09 95 H 28 H 126/76 96 05/30/24 09:18 93 H 28 H 97 05/30/24 09:12 97 H 33 H 115/73 97 BiPAP 05/30/24 08:45 100 H 35 H 91 High Flow Nasal Cannula 60 05/30/24 08:15 88 27 H 93 05/30/24 08:00 BiPAP 05/30/24 05:15 85 29 H 94 05/30/24 05:00 122/68 05/30/24 05:00 122/68 05/30/24 05:00 122/68 05/30/24 05:00 122/68 05/30/24 05:00 122/68 05/30/24 05:00 122/68 05/30/24 05:00 122/68 05/30/24 05:00 122/68 05/30/24 05:00 122/68 05/30/24 05:00 122/68 05/30/24 05:00 122/68 05/30/24 05:00 122/68 05/30/24 05:00 122/68 05/30/24 05:00 122/68 05/30/24 05:00 122/68 05/30/24 05:00 122/68 05/30/24 05:00 122/68 05/30/24 05:00 122/68 05/30/24 05:00 122/68 05/30/24 05:00 122/68 05/30/24 05:00 122/68 05/30/24 04:54 91 H 29 H 93 05/30/24 04:00 117/71 05/30/24 04:00 117/71 05/30/24 04:00 117/71 05/30/24 04:00 117/71 05/30/24 04:00 117/71 05/30/24 04:00 117/71 05/30/24 04:00 117/71 05/30/24 04:00 117/71 05/30/24 04:00 117/71 05/30/24 04:00 117/71 05/30/24 04:00 117/71 05/30/24 04:00 117/71 05/30/24 04:00 117/71 05/30/24 04:00 117/71 05/30/24 04:00 117/71 05/30/24 04:00 117/71 05/30/24 04:00 117/71 05/30/24 04:00 117/71 05/30/24 04:00 117/71 05/30/24 04:00 84 28 H 97 05/30/24 03:00 131/73 05/30/24 03:00 131/73 05/30/24 03:00 131/73 05/30/24 03:00 131/73 05/30/24 03:00 131/73 05/30/24 03:00 131/73 05/30/24 03:00 131/73 05/30/24 03:00 94 H 35 H 97 05/30/24 03:00 131/73 05/30/24 03:00 131/73 05/30/24 03:00 131/73 05/30/24 03:00 131/73 05/30/24 03:00 131/73 05/30/24 03:00 131/73 05/30/24 03:00 131/73 05/30/24 03:00 131/73 05/30/24 03:00 131/73 05/30/24 03:00 131/73 05/30/24 02:55 85 34 H 90 05/30/24 02:18 85 38 H 93 05/30/24 02:00 136/74 05/30/24 02:00 136/74 05/30/24 02:00 136/74 05/30/24 02:00 136/74 05/30/24 02:00 136/74 05/30/24 02:00 136/74 05/30/24 02:00 136/74 05/30/24 02:00 136/74 05/30/24 02:00 136/74 05/30/24 02:00 136/74 05/30/24 02:00 136/74 05/30/24 02:00 136/74 05/30/24 02:00 136/74 05/30/24 02:00 136/74 05/30/24 02:00 136/74 05/30/24 02:00 136/74 05/30/24 02:00 136/74 05/30/24 02:00 136/74 05/30/24 02:00 136/74 05/30/24 02:00 136/74 05/30/24 02:00 136/74 05/30/24 02:00 136/74 05/30/24 01:48 72 27 H 98 FiO2 05/30/24 12:46 100 05/30/24 12:03 100 05/30/24 11:27 100 05/30/24 11:00 05/30/24 10:09 05/30/24 09:18 90 05/30/24 09:12 05/30/24 08:45 100 05/30/24 08:15 100 05/30/24 08:00 05/30/24 05:15 05/30/24 05:00 05/30/24 05:00 05/30/24 05:00 05/30/24 05:00 05/30/24 05:00 05/30/24 05:00 05/30/24 05:00 05/30/24 05:00 05/30/24 05:00 05/30/24 05:00 05/30/24 05:00 05/30/24 05:00 05/30/24 05:00 05/30/24 05:00 05/30/24 05:00 05/30/24 05:00 05/30/24 05:00 05/30/24 05:00 05/30/24 05:00 05/30/24 05:00 05/30/24 05:00 05/30/24 04:54 05/30/24 04:00 05/30/24 04:00 05/30/24 04:00 05/30/24 04:00 05/30/24 04:00 05/30/24 04:00 05/30/24 04:00 05/30/24 04:00 05/30/24 04:00 05/30/24 04:00 05/30/24 04:00 05/30/24 04:00 05/30/24 04:00 05/30/24 04:00 05/30/24 04:00 05/30/24 04:00 05/30/24 04:00 05/30/24 04:00 05/30/24 04:00 05/30/24 04:00 05/30/24 03:00 05/30/24 03:00 05/30/24 03:00 05/30/24 03:00 05/30/24 03:00 05/30/24 03:00 05/30/24 03:00 05/30/24 03:00 05/30/24 03:00 05/30/24 03:00 05/30/24 03:00 05/30/24 03:00 05/30/24 03:00 05/30/24 03:00 05/30/24 03:00 05/30/24 03:00 05/30/24 03:00 05/30/24 03:00 05/30/24 02:55 70 05/30/24 02:18 05/30/24 02:00 05/30/24 02:00 05/30/24 02:00 05/30/24 02:00 05/30/24 02:00 05/30/24 02:00 05/30/24 02:00 05/30/24 02:00 05/30/24 02:00 05/30/24 02:00 05/30/24 02:00 05/30/24 02:00 05/30/24 02:00 05/30/24 02:00 05/30/24 02:00 05/30/24 02:00 05/30/24 02:00 05/30/24 02:00 05/30/24 02:00 05/30/24 02:00 05/30/24 02:00 05/30/24 02:00 05/30/24 01:48 Laboratory Results Laboratory Results - last 24 hr 05/29/24 05/30/24 05/30/24 23:50 04:49 11:40 WBC 12.34 H RBC 4.05 L Hgb 12.3 L Hct 36.3 L MCV 89.6 MCH 30.4 MCHC 33.9 RDW Std Deviation 52.8 H RDW Coeff of Matilde 15.9 H Plt Count 155 MPV 10.2 Immature Gran % (Auto) 0.6 Neut % (Auto) 80.7 Lymph % (Auto) 10.7 [place] % (Auto) 7.7 Eos % (Auto) 0.1 Baso % (Auto) 0.2 Neut # (Auto) 9.95 H Lymph # (Auto) 1.32 [place] # (Auto) 0.95 H Eos # (Auto) 0.01 Baso # (Auto) 0.03 Immature Gran # (Auto) 0.08 Sodium 132 L Potassium 3.9 Chloride 103 Carbon Dioxide 27 Anion Gap 2 L BUN 13 Creatinine 0.67 Est Cr Clr Drug Dosing 95.0 eGFR 98.59 BUN/Creatinine Ratio 19.4 Glucose 127 H POC Glucose 108 H 136 H Calcium 9.0 PG Care Time/CCT Total # of Minutes Spent Total Time Spent with Patient: Total time spent is greater than 50% in coordination of care (as documented) at patient's floor/unit and/or counseling patient: Coding Level of Care Code None Diagnoses Influenza A J10.1 Acute on chronic hypoxic respiratory failure J96.21 Multifocal pneumonia J18.9 Interstitial lung disease J84.9 Pulmonary hypertension I27.20 Gastroesophageal reflux disease without esophagitis K21.9 Esophagitis presence: without esophagitis History of prostate cancer Z85.46 Reactive airway disease J45.909 Hyponatremia E87.1 (6) GERD (gastroesophageal reflux disease) Esophagitis presence: without esophagitis Qualified Code(s): K21.9 - Gastro- esophageal reflux disease without esophagitis
[2024-05-30] MEDS: AZITHROMYCIN 250 MG TAB PO SCH (15:15)
[2024-05-31 04:59] LABS: Basophils # (auto) 0.05 K/uL (0.00-0.20); Basophils % (auto) 0.3 %; Eosinophils # (auto) 0.04 K/uL (0.00-0.50); Eosinophils % (auto) 0.3 %; Hemoglobin 12.6 g/dl (14.0-18.0); Immature Granulocytes % (auto) 0.6 %; Lymphocytes # (auto) 1.42 K/uL (1.20-3.40); Mean Corpuscular Hgb Conc 33.2 g/dL (32.0-36.0); Mean Corpuscular Volume 90.5 fL (80.0-100.0); Mean Platelet Volume 10.6 fL (9.4-12.4); Monocytes # (auto) 0.79 K/uL (0.11-0.59); Neutrophils # (auto) 13.36 K/uL (1.40-6.50); Neutrophils % (auto) 84.8 %; Platelet Count 158 K/uL (130-400); RDW Coefficient of Variation 15.9 % (11.5-14.5); RDW Standard Deviation 52.5 fL (36.4-46.3); White Blood Count 15.76 K/ul (4.8-10.8)
[2024-05-31 05:05] LABS: BUN Creatinine Ratio 21.1 (10-20); Creatinine Clr Calc Pharmacy 89.6 ml/min; Potassium 3.9 mmol/L (3.5-5.1)
[2024-05-31 07:53] VITALS: BP 132/72; PULSE 88; RESP 26; TEMP 99; O2SAT 90
--- NOTE | 2024-05-31 08:32 | Pulmonology Progress Note ---
Date of Service May 31, 2024 Assessment & Plan (1) Influenza A: (2) Acute on chronic hypoxic respiratory failure: (3) Multifocal pneumonia: (4) Pulmonary hypertension: (5) Interstitial lung disease: Plan 2D echo 01/24/2024: EF 60-65%, moderate concentric LVH, moderate TR, RVSP 60 mmHg, grade 1 diastolic dysfunction -- Acute on chronic hypoxic respiratory failure Likely secondary to influenza A pneumonia on top of underlying severe ILD Respiratory BioFire was positive for influenza A, negative for everything else Procalcitonin negative, nasal MRSA negative BNP 70 --Chronic hypoxic respiratory failure On 3-7 L of oxygen at home On Breo 100 at home --Pulmonary hypertension Likely type III Given that the patient is on bosentan, he likely has cardiac cath proven primary pulmonary hypertension on top. Will try to review the records from [facility] On pirfenidone 534 mg 3 times daily as well as bosentan Following up with [facility] pulmonary --DNR Okay to intubate, no tracheostomy Plan: Continue with oseltamivir to be given for 5 days. Continue with atypical coverage with azithromycin. QTc 430 Patient will be transition to comfort measures moving forward. No further recommendation from pulmonary perspective, will sign off Please call directly with any questions Please note the above document was generated using voice recognition software. It may contain grammatical, syntax or spelling errors.Any formal questions or concerns about the content, text or information contained within the body of this dictation should be directly addressed to the provider for clarification. Admission and Anticipated Discharge Date Admission Date: May 29, 2024 Subjective Patient seen and examined at bedside. No acute distress He was on 60 L, 100% FiO2 and he also had nonrebreather on top of it, saturation was 90-91% Patient's family was also in the room Patient is decided to go towards comfort measures Still coughing up and bringing up phlegm. Denies any chest pain Review of Systems 2 Review of Systems: All systems reviewed & are unremarkable except as noted in Subjective Physical Exam 2 Physical Exam: Constitutional: In respiratory distress HEENT: EOMI, PERRLA Respiratory system: Decreased air entry bilaterally, no wheeze, no rhonchi, positive Velcro-like crackles appreciated bilaterally, more on the left side CVS: S1-S2 positive, positive 2 out of 6 systolic murmur appreciated best at aorta Abdomen: Soft, nontender, nondistended, positive bowel sounds x4 Extremities: +2 pulses bilaterally radialis/ dorsalis pedis, no cyanosis, minimal pitting edema bilateral lower extremity Neuro: Awake alert oriented x3 Psych: Normal mood and affect G/U: No Orr Skin: no rashes, warm and dry Lymphatic: no cervical or axillary lymphadenopathy Results & Data Results & Data Vital Signs (Past 12 Hours) Vital Signs Temp Pulse Pulse Resp BP BP Pulse Ox 05/31/24 08:00 05/31/24 07:59 05/31/24 07:43 37.2 C 88 26 H 132/72 90 05/31/24 07:43 87 05/31/24 07:31 90 31 H 93 05/31/24 06:03 91 H 36 H 111/71 93 05/31/24 05:57 81 29 H 91 05/31/24 05:00 93 H 34 H 122/71 90 05/31/24 04:27 72 05/31/24 04:17 74 28 H 93 05/31/24 04:09 87 29 H 129/73 91 05/31/24 03:57 77 26 H 90 05/31/24 03:09 99 H 38 H 122/72 73 L 05/31/24 02:36 94 H 41 H 89 L 05/31/24 02:03 90 35 H 121/72 89 L 05/31/24 01:34 36.5 C 05/31/24 01:12 85 29 H 134/68 90 05/31/24 00:54 78 28 H 91 05/31/24 00:00 78 28 H 123/66 93 05/30/24 23:33 75 30 H 91 05/30/24 23:12 86 30 H 123/75 94 05/30/24 23:00 123/75 05/30/24 22:57 82 25 H 94 05/30/24 22:03 73 37 H 124/77 88 L 05/30/24 21:54 78 29 H 95 05/30/24 21:09 67 21 121/73 94 O2 Del Method O2 Flow Rate FiO2 05/31/24 08:00 High Flow Nasal Cannula 05/31/24 07:59 High Flow Nasal Cannula 60 100 05/31/24 07:43 High Flow Nasal Cannula 60 100 05/31/24 07:43 05/31/24 07:31 High Flow Nasal Cannula 60 100 05/31/24 06:03 05/31/24 05:57 05/31/24 05:00 05/31/24 04:27 05/31/24 04:17 High Flow Nasal Cannula, Non-rebreather 60 100 05/31/24 04:09 05/31/24 03:57 05/31/24 03:09 05/31/24 02:36 05/31/24 02:03 05/31/24 01:34 05/31/24 01:12 05/31/24 00:54 05/31/24 00:00 05/30/24 23:33 High Flow Nasal Cannula, Non-rebreather 60 100 05/30/24 23:12 05/30/24 23:00 05/30/24 22:57 05/30/24 22:03 05/30/24 21:54 05/30/24 21:09 Laboratory Results 05/31/24 04:35 05/31/24 04:35 PG Care Time/CCT Total # of Minutes Spent Total Time Spent with Patient: Total time spent is greater than 50% in coordination of care (as documented) at patient's floor/unit and/or counseling patient: Coding Level of Care Code 28873 SUB INP/OBS CARE 2/35MIN Diagnoses Influenza A J10.1 Acute on chronic hypoxic respiratory failure J96.21 Multifocal pneumonia J18.9 Pulmonary hypertension I27.20 Interstitial lung disease J84.9
[2024-05-31] MEDS ORDERED: ONDANSETRON INJ 2 MG/ML 2 ML VIAL IV PRN (08:41)
[2024-05-31] MEDS ORDERED: LORazepam 2 MG/1 ML VIAL IV PRN ×2 (08:41→08:46)
[2024-05-31] MEDS: MoRPHine SULFATE 2 MG/ML CARP IV STA ×2 (08:42→09:03)
[2024-05-31] MEDS ORDERED: MoRPHine SULFATE 10 MG/0.5 ML UDP PO PRN (08:46)
[2024-05-31] MEDS ORDERED: STAT IV Infusion **Titration per Protocol STA (09:23)
[2024-05-31] MEDS ORDERED: MoRPHine BOLUS from BAG IV PRN (09:23)
--- NOTE | 2024-05-31 09:25 | Critical Care Progress Note ---
Date of Service May 31, 2024 Assessment & Plan (1) Influenza A: (2) Acute on chronic hypoxic respiratory failure: Plan: Reason Critically Ill: 73-year-old male with ILD who presents with worsening acute on chronic hypoxic respiratory failure PLAN: Neuro: Anxiety -Morphine and Ativan for anxiolysis Resp: Acute on chronic hypoxic respiratory failure: Box fan -Oxygen for comfort Pulmonary hypertension -Discontinuing home meds per patient request Fluids/Renal: Discontinue follow-up labs ID: Influenza A -Discontinuing Tamiflu and antibiotics. GI/Nutrition: Food and liquids as needed for comfort Heme: Anemia NOS DVT prophylaxis: Chemical and mechanical prophylaxis contraindicated Endocrine: ICU hyperglycemia protocol Vascular access: Peripheral IVs Code Status: DO NOT RESUSCITATE DO NOT INTUBATE, comfort measures initiated Disposition: Stable for transfer -Palliative care consulted for follow-up on floor as needed (3) Multifocal pneumonia: (4) Pulmonary hypertension: (5) Interstitial lung disease: (6) Influenza A: (7) Hypoxia: Admission and Anticipated Discharge Date Admission Date: May 29, 2024 Supervising Physician Co-Signing Physician Notes I have personally spent 45 minutes of critical care time in the direct management of this patient. This is a life/limb threatening event. This includes time spent evaluating patient, direct bedside care, chart review, placing orders, interpretation of diagnostic studies, discussion with consulta nts, patient, and/or family members regarding treatment decisions, as well as other required patient management activities. This time is exclusive of all separately billable procedures, and teaching time and separate from and in addition to any other critical care service time. Subjective Patient and family at bedside discussion regarding goals of care. No longer desires aggressive measures and opts to proceed with comfort. All family in concurrence Physical Exam Physical Exam: General: Alert. nontoxic. Skin: Warm, dry, Head: Atraumatic Ears, nose, mouth and throat: airway patent: High flow nasal cannula in place Cardiovascular: Normal peripheral perfusion Respiratory: tachypnea into 30s, recent coughing episode, minimal accessory muscle use, able to speak in 5 word sentences Gastrointestinal: Non distended Musculoskeletal: No deformity Results & Data Results & Data Vital Signs (Past 12 Hours) Vital Signs Temp Pulse Pulse Resp BP BP Pulse Ox 05/31/24 08:00 05/31/24 07:59 05/31/24 07:43 37.2 C 88 26 H 132/72 90 05/31/24 07:43 87 05/31/24 07:31 90 31 H 93 05/31/24 06:03 91 H 36 H 111/71 93 05/31/24 05:57 81 29 H 91 05/31/24 05:00 93 H 34 H 122/71 90 05/31/24 04:27 72 05/31/24 04:17 74 28 H 93 05/31/24 04:09 87 29 H 129/73 91 05/31/24 03:57 77 26 H 90 05/31/24 03:09 99 H 38 H 122/72 73 L 05/31/24 02:36 94 H 41 H 89 L 05/31/24 02:03 90 35 H 121/72 89 L 05/31/24 01:34 36.5 C 05/31/24 01:12 85 29 H 134/68 90 05/31/24 00:54 78 28 H 91 05/31/24 00:00 78 28 H 123/66 93 05/30/24 23:33 75 30 H 91 05/30/24 23:12 86 30 H 123/75 94 05/30/24 23:00 123/75 05/30/24 22:57 82 25 H 94 05/30/24 22:03 73 37 H 124/77 88 L 05/30/24 21:54 78 29 H 95 O2 Del Method O2 Flow Rate FiO2 05/31/24 08:00 High Flow Nasal Cannula 05/31/24 07:59 High Flow Nasal Cannula 60 100 05/31/24 07:43 High Flow Nasal Cannula 60 100 05/31/24 07:43 05/31/24 07:31 High Flow Nasal Cannula 60 100 05/31/24 06:03 05/31/24 05:57 05/31/24 05:00 05/31/24 04:27 05/31/24 04:17 High Flow Nasal Cannula, Non-rebreather 60 100 05/31/24 04:09 05/31/24 03:57 05/31/24 03:09 05/31/24 02:36 05/31/24 02:03 05/31/24 01:34 05/31/24 01:12 05/31/24 00:54 05/31/24 00:00 05/30/24 23:33 High Flow Nasal Cannula, Non-rebreather 60 100 05/30/24 23:12 05/30/24 23:00 05/30/24 22:57 05/30/24 22:03 05/30/24 21:54 Critical Care Results & Data Vital Signs (Past 12 Hours) Vital Signs Temp Pulse Pulse Resp BP BP Pulse Ox 05/31/24 08:00 05/31/24 07:59 05/31/24 07:43 37.2 C 88 26 H 132/72 90 05/31/24 07:43 87 05/31/24 07:31 90 31 H 93 05/31/24 06:03 91 H 36 H 111/71 93 05/31/24 05:57 81 29 H 91 05/31/24 05:00 93 H 34 H 122/71 90 05/31/24 04:27 72 05/31/24 04:17 74 28 H 93 05/31/24 04:09 87 29 H 129/73 91 05/31/24 03:57 77 26 H 90 05/31/24 03:09 99 H 38 H 122/72 73 L 05/31/24 02:36 94 H 41 H 89 L 05/31/24 02:03 90 35 H 121/72 89 L 05/31/24 01:34 36.5 C 05/31/24 01:12 85 29 H 134/68 90 05/31/24 00:54 78 28 H 91 05/31/24 00:00 78 28 H 123/66 93 05/30/24 23:33 75 30 H 91 05/30/24 23:12 86 30 H 123/75 94 05/30/24 23:00 123/75 05/30/24 22:57 82 25 H 94 05/30/24 22:03 73 37 H 124/77 88 L 05/30/24 21:54 78 29 H 95 O2 Del Method O2 Flow Rate FiO2 05/31/24 08:00 High Flow Nasal Cannula 05/31/24 07:59 High Flow Nasal Cannula 60 100 05/31/24 07:43 High Flow Nasal Cannula 60 100 05/31/24 07:43 05/31/24 07:31 High Flow Nasal Cannula 60 100 05/31/24 06:03 05/31/24 05:57 05/31/24 05:00 05/31/24 04:27 05/31/24 04:17 High Flow Nasal Cannula, Non-rebreather 60 100 05/31/24 04:09 05/31/24 03:57 05/31/24 03:09 05/31/24 02:36 05/31/24 02:03 05/31/24 01:34 05/31/24 01:12 05/31/24 00:54 05/31/24 00:00 05/30/24 23:33 High Flow Nasal Cannula, Non-rebreather 60 100 05/30/24 23:12 05/30/24 23:00 05/30/24 22:57 05/30/24 22:03 05/30/24 21:54 Lab & Micro Results (Past 24 Hours) RBC 4.20 M/uL (4.70-6.10) L 05/31/24 WBC 15.76 K/ul (4.8-10.8) H 05/31/24 Hgb 12.6 g/dl (14.0-18.0) L 05/31/24 Hct 38.0 % (42.0-52.0) L 05/31/24 MCV 90.5 fL (80.0-100.0) 05/31/24 MCH 30.0 pg (25.0-34.0) 05/31/24 MCHC 33.2 g/dL (32.0-36.0) 05/31/24 RDW Standard Deviation 52.5 fL (36.4-46.3) H 05/31/24 RDW Coefficient of Variation 15.9 % (11.5-14.5) H 05/31/24 Plt Count 158 K/uL (130-400) 05/31/24 MPV 10.6 fL (9.4-12.4) 05/31/24 Neutrophils (%) (Auto) 84.8 % 05/31/24 Lymphocytes (%) (Auto) 9.0 % 05/31/24 Monocytes # (Auto) 0.79 K/uL (0.11-0.59) H 05/31/24 Eosinophils # (Auto) 0.04 K/uL (0.00-0.50) 05/31/24 Immature Granulocyte % (Auto) 0.6 % 05/31/24 Neutrophils # (Auto) 13.36 K/uL (1.40-6.50) H 05/31/24 Lymphocytes # (Auto) 1.42 K/uL (1.20-3.40) 05/31/24 Monocytes # (Auto) 0.79 K/uL (0.11-0.59) H 05/31/24 Eosinophils # (Auto) 0.04 K/uL (0.00-0.50) 05/31/24 Basophils # (Auto) 0.05 K/uL (0.00-0.20) 05/31/24 Immature Granulocyte # (Auto) 0.10 K/uL (0.01-0.20) 5 Na 132 mmol/L (136-145) L 05/31/24 K 3.9 mmol/L (3.5-5.1) 05/31/24 Cl 100 mmol/L (98-107) 05/31/24 CO2 33 mmol/L (21-32) H 05/31/24 Anion Gap -1 (3-11) L 05/31/24 BUN 15 mg/dl (6-23) 05/31/24 Creatinine 0.71 mg/dl (0.6-1.4) 05/31/24 BUN/Creatinine Ratio 21.1 (10-20) H 05/31/24 Glu 120 mg/dl (70-99(Fasting)) H 05/31/24 Ca 9.0 mg/dl (8.6-10.3) 05/31/24 Calcium Level 9.0 mg/dl (8.6-10.3) 05/31/24 04:35 Microbiology 05/29/24 11:32 Aerobic Blood Culture - Preliminary Blood No growth in Aerobic bottle after 24 hours. Anaerobic Blood Culture - Preliminary No growth in Anaerobic bottle after 24 hours. 05/29/24 11:30 Aerobic Blood Culture - Preliminary Blood No growth in Aerobic bottle after 24 hours. Anaerobic Blood Culture - Preliminary No growth in Anaerobic bottle after 24 hours. I & O Totals 24 Hours 05/30/24 05/31/24 06/01/24 06:59 06:59 06:59 Intake Total 1320 / 1320 800 / 800 250 / 250 Output Total 1776 / 1776 1301 / 1301 Balance -456 / -456 -501 / -501 250 / 250 Cumulative 05/29/24 10:59 thru 05/31/24 08:00 Intake Total 2370 Output Total 3077 Balance -707 RT Ventilator Mngmt (Last Documented) Ventilator Ordered Settings Respiratory Rate 26 05/31/24 07:43 Fraction of Inspired Oxygen 100 05/31/24 07:59 Ventilator - PT Measurements Respiratory Rate 26 Coding Level of Care Code 52968 CRITICAL CARE 1ST 30-74M Diagnoses Influenza A J10.1 Acute on chronic hypoxic respiratory failure J96.21 Multifocal pneumonia J18.9 Pulmonary hypertension I27.20 Interstitial lung disease J84.9 Hypoxia R09.02
[2024-05-31] MEDS: MoRPHine SULFATE 2 MG/ML CARP IV PRN (09:29)
--- NOTE | 2024-05-31 09:34 | Hospitalist Progress Note ---
Date of Service May 31, 2024 Assessment & Plan (1) Influenza A: (2) Acute on chronic hypoxic respiratory failure: (3) Multifocal pneumonia: (4) Interstitial lung disease: (5) Pulmonary hypertension: (6) GERD (gastroesophageal reflux disease): (7) History of prostate cancer: (8) Reactive airway disease: (9) Hyponatremia: Plan # Comfort care measures only Patient will be transferred to [facility] as wishes to be made comfort care at this time. Will discontinue any non-comfort medications. Start morphine [employer] pump and up titrate as needed for comfort Ativan as needed for anxiety/agitation Robinul for secretions Ondansetron for nausea #Acute on chronic hypoxic respiratory failure Can transition off high flow oxygen when patient is ready but be prepared for sudden deterioration #Influenza A, suspected left-sided superimposed pneumonia / baseline severe ILD / severe pulmonary HTN now on comfort care measures only VTE Prophylaxis - discontinued Diet - offer food and fluids as requested by patient Disposition - transfer to [facility] Admission and Anticipated Discharge Date Admission Date: May 29, 2024 Subjective Patient and family re-expressed wish to be made comfort care which he had a discussion with learning support services director this morning. Expressed desire to be taken off high flow oxygen which will be made once transferred to [facility]. Discussed possible benefits of morphine drip and requested to be placed on this rather than just PRN morphine although not gasping for breath currently. Does not feel he needs any lorazepam at the current time as not anxiety or agitation. Physical Exam Respiratory: + labored breathing and + uses accessory muscles Auscultation: + crackles (anteriorly); no diminished lung sounds Cardiovascular: Rate/Rhythm: regular rate and regular rhythm Results & Data Results & Data Vital Signs (Past 12 Hours) Vital Signs Temp Pulse Pulse Resp BP BP Pulse Ox 05/31/24 08:00 05/31/24 07:59 05/31/24 07:43 37.2 C 88 26 H 132/72 90 05/31/24 07:43 87 05/31/24 07:31 90 31 H 93 05/31/24 06:03 91 H 36 H 111/71 93 05/31/24 05:57 81 29 H 91 05/31/24 05:00 93 H 34 H 122/71 90 05/31/24 04:27 72 05/31/24 04:17 74 28 H 93 05/31/24 04:09 87 29 H 129/73 91 05/31/24 03:57 77 26 H 90 05/31/24 03:09 99 H 38 H 122/72 73 L 05/31/24 02:36 94 H 41 H 89 L 05/31/24 02:03 90 35 H 121/72 89 L 05/31/24 01:34 36.5 C 05/31/24 01:12 85 29 H 134/68 90 05/31/24 00:54 78 28 H 91 05/31/24 00:00 78 28 H 123/66 93 05/30/24 23:33 75 30 H 91 05/30/24 23:12 86 30 H 123/75 94 05/30/24 23:00 123/75 05/30/24 22:57 82 25 H 94 05/30/24 22:03 73 37 H 124/77 88 L 05/30/24 21:54 78 29 H 95 O2 Del Method O2 Flow Rate FiO2 05/31/24 08:00 High Flow Nasal Cannula 05/31/24 07:59 High Flow Nasal Cannula 60 100 05/31/24 07:43 High Flow Nasal Cannula 60 100 05/31/24 07:43 05/31/24 07:31 High Flow Nasal Cannula 60 100 05/31/24 06:03 05/31/24 05:57 05/31/24 05:00 05/31/24 04:27 05/31/24 04:17 High Flow Nasal Cannula, Non-rebreather 60 100 05/31/24 04:09 05/31/24 03:57 05/31/24 03:09 05/31/24 02:36 05/31/24 02:03 05/31/24 01:34 05/31/24 01:12 05/31/24 00:54 05/31/24 00:00 05/30/24 23:33 High Flow Nasal Cannula, Non-rebreather 60 100 05/30/24 23:12 05/30/24 23:00 05/30/24 22:57 05/30/24 22:03 05/30/24 21:54 PG Care Time/CCT Total # of Minutes Spent Total Time Spent with Patient: Total time spent is greater than 50% in coordination of care (as documented) at patient's floor/unit and/or counseling patient: Coding Level of Care Code 93742 SUB INP/OBS CARE MIN Diagnoses Influenza A J10.1 Acute on chronic hypoxic respiratory failure J96.21 Multifocal pneumonia J18.9 Interstitial lung disease J84.9 Pulmonary hypertension I27.20 Gastroesophageal reflux disease without esophagitis K21.9 Esophagitis presence: without esophagitis History of prostate cancer Z85.46 Reactive airway disease J45.909 Hyponatremia E87.1 (6) GERD (gastroesophageal reflux disease) Esophagitis presence: without esophagitis Qualified Code(s): K21.9 - Gastro- esophageal reflux disease without esophagitis
[2024-05-31] MEDS: MoRPHine SULF 100 MG/100 ML BAG IV SCH (09:38)
--- NOTE | 2024-05-31 10:00 | Palliative Care Consultation ---
Date of Consultation May 31, 2024 Assessment & Plan (1) Dyspnea and respiratory abnormalities: Juanjo states he us very SOB, would like MS adjusted for more relief See ACP discussion, he is clear he wants comfort over alertness, does not want to experience severe dyspnea (2) Advanced care planning/counseling discussion: A 45min face to face ACP meeting was held at bedside with Sathya, his , his dtrs x2, son in law x1, his sister and his close friend. Sathya i aware of the end stage nature of his IPF and asked for more dyspnea relief and I adjusted MS. He is also admitting to anxiety so Ativan increased to 1mg. He may need palliative sedation as this progresses. We discussed hospice GIP vs home. Unlikely he will make it home and family agrees, they would like a GIP eval, no agency preference.I provided education about the hospice benefit: an interdisciplinary program offered by nurses, nurses aides, social workers, chaplains and a medical front desk specialist for patients with a terminal condition and a life expectancy of less than 6 months. This is covered by Medicare at 100%/no out of pocket expense to patient and all meds/supplies needed by patient for the reason they are on hospice are paid for/covered by hospice. The goal is assure quality of life of the patient in their home setting (home, halfway, inpatient hospice setting) by providing symptoms management, psychosocial and spiritual support. However, they cannot offer 24 hours care and if the family is unable to provide that care, they will have to consider personal care with out of pocket cost vs. halfway placement. We discussed the goals of hospice as a patient service and the goals of care; we discussed EOL trajectories and transitions paramjit the emotional impact of realizing mortality as a concrete reality from prior abstract considerations. Pt was reassured that no matter where they are along this trajectory, they are not alone - their medical team will remain by their side through their journey. Discussed the pros/cons of accepting help when especially weakened and d istressed by pain-which would also help provide relief/decrease caregiver burden/strain. Patient/family desire comfort. He reaffirmed DNR/DNI, no intubation desired. He would like a GIP eval and I beleive he qualifies given the severe and uncontrolled dyspnea. Care mgt to facilitate. They had no other concerns at this time and are in complete agreement to optimize his comfort and assure a peaceful . At their request we discussed the changes to expect as someone moves from a process of living to a process of dying/symptoms to anticipate/what is "normal" during the dying process. All ques tions answered and they are comfortable with [facility]. I would dc monitors etc and detether. Overall prognosis and anticipated survival is short. Patient is aware and indicates no urgent desire to return ho,me if steadily worsening. Please page with any acute needs. (3) Encounter for hospice care discussion: I provided education about the hospice benefit: an interdisciplinary program offered by nurses, nurses aides, social workers, chaplains and a medical front desk specialist for patients with a terminal condition and a life expectancy of less than 6 months. This is covered by Medicare at 100%/no out of pocket expense to patient and all meds/supplies needed by patient for the reason they are on hospice are paid for/covered by hospice. The goal is assure quality of life of the patient in their home setting (home, halfway, inpatient hospice setting) by providing symptoms management, psychosocial and spiritual support. However, they cannot offer 24 hours care and if the family is unable to provide that care, they will have to consider personal care with out of pocket cost vs. halfway placement. We discussed the goals of hospice as a patient service and the goals of care; we discussed EOL trajectories and transitions paramjit the emotional impact of realizing mortality as a concrete reality from prior abstract considerations. Pt was reassured that no matter where they are along this trajectory, they are not alone - their medical team will remain by their side through their journey. Discussed the pros/cons of accepting help when especially weakened and distressed by pain-which would also help provide relief/decrease caregiver burden/strain. (4) Palliative care by specialist: Introduced Palliative Medicine and explained our role in patient's care. Patient and/or family were receptive to palliative services for goals of care discussions. Reviewed we are different from hospice, a home health nurse visiting service. (5) Pulmonary hypertension: (6) Interstitial lung disease: (7) IPF (idiopathic pulmonary fibrosis): Plan [facility] [facility] [facility] Code is DNR/DNI Orders adjusted for further symptom mgt Updated teams Short anticipated survival, hours to day or 2. Thank you for allowing us to participate in the ongoing care of this patient. Please page with any additional concerns. Shravan Casanova DNP Director, Palliative Medicine History of Present Illness Reason for Consultation: end of life, respiratory failure ILD flu Attending Physician: Chadd Kilgore MD History of Present Illness Juanjo Turner is a 73yo male with ILD who presented 05/29/24 with worsening acute on chronic hypoxic respiratory failure He is critically ill CCM has asked for Pall med consult to assist with EOL, GOC, end stage resp failure d/t ILD + Flu Of note, "Code Status: DO NOT RESUSCITATE in event of cardiac arrest, okay with intubation for respiratory insufficiency, does not desire tracheostomy for chronic respiratory failure" Follows with [facility] for pulm med, last visit 05/15/24 reports: persistent dry cough ILD-IPF L >> R; he is on pirfenidone 267mg 2 capsules TID Severe PH PAs 60mmHG/Class 3; he is on Bosentan 62.5mg BID (Tracleer) Hypoxic resp failure on 3lpm NC Qhs + 6lpm NC all exertion PMH includes prostate ca in past, GERD pt seen with and family at bedside he is SOB, anxious and denies acute pain He has a morphine infusion running Allergies Allergy/AdvReac Type Severity Reaction Status Date / Time No Known Drug Allergies Allergy Verified 01/14/24 08:20 Home Medications Medication Instructions Recorded Confirmed Type omega-3 fatty acids 1,000 mg 1,000 mg PO QAM 11/11/20 05/29/24 History capsule (Fish Oil Concentrate) aspirin 81 mg tablet,delayed 81 mg PO QAM 01/29/22 05/29/24 History release (Adult Low Dose Aspirin) cholecalciferol (vitamin D3) 50 50 mcg PO QAM 01/29/22 05/29/24 History mcg (2,000 unit) capsule fexofenadine 180 mg tablet 180 mg PO QAM 08/21/22 05/29/24 History ([facility]) Oxygen Home 07/13/23 01/14/24 History fluticasone fur. 100 mcg-umeclid 1 inh inhalation UD 07/13/23 05/29/24 History 62.5 mcg-vilant 25 mcg inhalat.powder (Trelegy Ellipta) pantoprazole 40 mg tablet,delayed 40 mg PO BID #180 tabs 07/13/23 05/29/24 Rx release fluticasone propionate 50 1 spray intranasal BID #48 grams 08/17/23 05/29/24 Rx mcg/actuation nasal spray,suspension albuterol sulfate 90 mcg/actuation 2 puff inhalation QID PRN 12/10/23 05/29/24 Rx aerosol inhaler shortness of breath or wheezing or cough #3 Inhalers albuterol sulfate 0.63 mg/3 mL 0.63 mg inhalation Q6H PRN sob 01/14/24 05/29/24 History solution for nebulization ipratropium bromide 0.02 % 2.5 ml inhalation Q6H PRN sob 01/14/24 05/29/24 History solution for inhalation atorvastatin 40 mg tablet 40 mg PO QAM #90 tabs 04/20/24 05/29/24 Rx azelastine 137 mcg (0.1 %) nasal 1 spray intranasal DIRECTED 05/29/24 05/29/24 History spray bosentan 62.5 mg tablet 62.5 mg PO BID 05/29/24 05/29/24 History fluconazole 150 mg tablet 150 mg PO UD 05/29/24 05/29/24 History pirfenidone 267 mg capsule 534 mg PO TID 05/29/24 05/29/24 History Patient History Medical History Kidney stones passed on own Hyperlipidemia Benign neoplasm of colon History of Lyme disease 2005 > resolved 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 History of cellulitis Asbestos exposure several yrs ago Hernia pt unaware GERD (gastroesophageal reflux disease) now off PPI Surgical History History of colonoscopy 2012 History of tooth extraction H/O prostatectomy 05/2006 Family History Grandmother Diabetes Brother Diabetes Hypertension Rectal cancer Heart disease Sister Diabetes Hypertension Cancer Father Myocardial infarction Heart disease Family/Other Lung disease Other No family history of adverse response to anesthesia No family history of bleeding disorder Denies family history of Ovarian cancer Prostate cancer Breast cancer Colorectal cancer Stroke Social History Smoking Status: Never smoker Cigarettes Per Day: only smoked once in awhile for a couple years; Second Hand Exposure: No; Do You Dip or Chew Tobacco: No; Hx Alcohol Use: No Hx Substance Use: No Preferred Language: [place]ian Communication Ability: Effective Hearing Ability: Normal Bottle Carrier Required: No Beliefs That Will Affect Care: Sikhism marital status: Current Living Situation: Spouse current occupational status: retired current occupation: Sales How many Children do You have: 2 Feels Safe at Home: Yes Childhood Exposure to Second-Hand Smoke: No Diet: regular caffeine: Yes (coffee) Dental Care, Regularly: No Physical Activity Frequency: Daily Seatbelt Use: always Sunscreen Use: No Assistive Devices: None Review of Systems Review of Systems: All systems reviewed & are unremarkable except as noted in Subjective Physical Exam Physical Exam: Chronically ill appearing male Dyspneic Use of accessory muscles and abd breathing noted crackles left > right, no wheezing, BS diminished Tachy S1S2 Abd sl distended, BS+, NTP, +abd breathing Gen weakness Skin is pale, cool to touch, +scatt ecchymoses AAOx3 Anxious, speech is short sentences d/t dyspnea Results & Data Vital Signs (Past 12 Hours) Vital Signs Temp Pulse Pulse Resp BP BP Pulse Ox 05/31/24 08:00 05/31/24 07:59 05/31/24 07:43 37.2 C 88 26 H 132/72 90 05/31/24 07:43 87 05/31/24 07:31 90 31 H 93 05/31/24 06:03 91 H 36 H 111/71 93 05/31/24 05:57 81 29 H 91 05/31/24 05:00 93 H 34 H 122/71 90 05/31/24 04:27 72 05/31/24 04:17 74 28 H 93 05/31/24 04:09 87 29 H 129/73 91 05/31/24 03:57 77 26 H 90 05/31/24 03:09 99 H 38 H 122/72 73 L 05/31/24 02:36 94 H 41 H 89 L 05/31/24 02:03 90 35 H 121/72 89 L 05/31/24 01:34 36.5 C 05/31/24 01:12 85 29 H 134/68 90 05/31/24 00:54 78 28 H 91 05/31/24 00:00 78 28 H 123/66 93 05/30/24 23:33 75 30 H 91 05/30/24 23:12 86 30 H 123/75 94 05/30/24 23:00 123/75 05/30/24 22:57 82 25 H 94 05/30/24 22:03 73 37 H 124/77 88 L 05/30/24 21:54 78 29 H 95 O2 Del Method O2 Flow Rate FiO2 05/31/24 08:00 High Flow Nasal Cannula 05/31/24 07:59 High Flow Nasal Cannula 60 100 05/31/24 07:43 High Flow Nasal Cannula 60 100 05/31/24 07:43 05/31/24 07:31 High Flow Nasal Cannula 60 100 05/31/24 06:03 05/31/24 05:57 05/31/24 05:00 05/31/24 04:27 05/31/24 04:17 High Flow Nasal Cannula, Non-rebreather 60 100 05/31/24 04:09 05/31/24 03:57 05/31/24 03:09 05/31/24 02:36 05/31/24 02:03 05/31/24 01:34 05/31/24 01:12 05/31/24 00:54 05/31/24 00:00 05/30/24 23:33 High Flow Nasal Cannula, Non-rebreather 60 100 05/30/24 23:12 05/30/24 23:00 05/30/24 22:57 05/30/24 22:03 05/30/24 21:54 Laboratory Results 05/31/24 05/31/24 05/30/24 Range/Units 04:35 02:32 11:40 WBC 15.76 H (4.8-10.8) K/ul RBC 4.20 L (4.70-6.10) M/uL Hgb 12.6 L (14.0-18.0) g/dl Hct 38.0 L (42.0-52.0) % MCV 90.5 (80.0-100.0) fL MCH 30.0 (25.0-34.0) pg MCHC 33.2 (32.0-36.0) g/dL RDW Std Deviation 52.5 H (36.4-46.3) fL RDW Coeff of Matilde 15.9 H (11.5-14.5) % Plt Count 158 (130-400) K/uL MPV 10.6 (9.4-12.4) fL Immature Gran % (Auto) 0.6 % Neut % (Auto) 84.8 % Lymph % (Auto) 9.0 % [place] % (Auto) 5.0 % Eos % (Auto) 0.3 % Baso % (Auto) 0.3 % Neut # (Auto) 13.36 H (1.40-6.50) K/uL Lymph # (Auto) 1.42 (1.20-3.40) K/uL [place] # (Auto) 0.79 H (0.11-0.59) K/uL Eos # (Auto) 0.04 (0.00-0.50) K/uL Baso # (Auto) 0.05 (0.00-0.20) K/uL Immature Gran # (Auto) 0.10 (0.01-0.20) K/uL PT (9.0-12.0) Seconds INR (0.9-1.1) APTT (21-31) Seconds PTT Ratio VBG pH (7.36-7.41) VBG pCO2 (38-50) mmHg VBG pO2 mmHg VBG HCO3 mmol/L VBG O2 Saturation % VBG Base Excess mEq/L Sodium 132 L (136-145) mmol/L Potassium 3.9 (3.5-5.1) mmol/L Chloride 100 (98-107) mmol/L Carbon Dioxide 33 H (21-32) mmol/L Anion Gap -1 L (3-11) BUN 15 (6-23) mg/dl Creatinine 0.71 (0.6-1.4) mg/dl Est Cr Clr Drug Dosing 89.6 ml/min eGFR 96.88 BUN/Creatinine Ratio 21.1 H (10-20) Glucose 120 H (70-99(Fasting)) mg/dl POC Glucose 111 H 136 H (70-99) mg/dl Lactate (0.4-2.0) mmol/L Calcium 9.0 (8.6-10.3) mg/dl Magnesium (1.7-2.4) mg/dl Total Bilirubin (0.2-1.0) mg/dl Direct Bilirubin (0-0.2) mg/dl AST (13-39) U/L ALT (7-52) U/L Alkaline Phosphatase (34-104) U/L Troponin I High Sens (0-20) pg/ml B-Natriuretic Peptide (0-100) pg/ml Total Protein (6.0-8.3) gm/dl Albumin (3.4-5.0) gm/dl Procalcitonin (0-0.5) ng/ml Urine Color Urine Appearance (Clear) Urine pH (4.5-7.5) Ur Specific [employer] (1.000-1.030) Urine Protein (Negative) Urine Glucose (UA) (Negative) Urine Ketones (Negative) Urine Blood (Negative) Urine Nitrite (Negative) Urine Bilirubin (Negative) Urine Urobilinogen (Negative) Ur Leukocyte Esterase (Negative) Nasal Influ A H1 2009 PCR (NotDetected) Nasal Screen MRSA (PCR) (Negative) Adenovirus (PCR) (NotDetected) B. pertussis DNA (PCR) (NotDetected) B.parapertussis DNA PCR (NotDetected) C. pneumoniae DNA (PCR) (NotDetected) Coronavirus OC43 (PCR) (NotDetected) Coronavirus HKU1 (PCR) (NotDetected) Coronavirus 229E (PCR) (NotDetected) SARS-CoV-2 (PCR) (NotDetected) Coronavirus NL63 (PCR) (NotDetected) Human Metapneumovir PCR (NotDetected) Influenza Type B (PCR) (NotDetected) M. pneumoniae (PCR) (NotDetected) Parainfluenza 1 (PCR) (NotDetected) Parainfluenza 2 (PCR) (NotDetected) Parainfluenza 3 (PCR) (NotDetected) Parainfluenza 4 (PCR) (NotDetected) RSV (PCR) (NotDetected) Entero/Rhino (PCR) (NotDetected) 05/30/24 05/29/24 05/29/24 Range/Units 04:49 23:50 18:10 WBC 12.34 H (4.8-10.8) K/ul RBC 4.05 L (4.70-6.10) M/uL Hgb 12.3 L (14.0-18.0) g/dl Hct 36.3 L (42.0-52.0) % MCV 89.6 (80.0-100.0) fL MCH 30.4 (25.0-34.0) pg MCHC 33.9 (32.0-36.0) g/dL RDW Std Deviation 52.8 H (36.4-46.3) fL RDW Coeff of Matilde 15.9 H (11.5-14.5) % Plt Count 155 (130-400) K/uL MPV 10.2 (9.4-12.4) fL Immature Gran % (Auto) 0.6 % Neut % (Auto) 80.7 % Lymph % (Auto) 10.7 % [place] % (Auto) 7.7 % Eos % (Auto) 0.1 % Baso % (Auto) 0.2 % Neut # (Auto) 9.95 H (1.40-6.50) K/uL Lymph # (Auto) 1.32 (1.20-3.40) K/uL [place] # (Auto) 0.95 H (0.11-0.59) K/uL Eos # (Auto) 0.01 (0.00-0.50) K/uL Baso # (Auto) 0.03 (0.00-0.20) K/uL Immature Gran # (Auto) 0.08 (0.01-0.20) K/uL PT (9.0-12.0) Seconds INR (0.9-1.1) APTT (21-31) Seconds PTT Ratio VBG pH (7.36-7.41) VBG pCO2 (38-50) mmHg VBG pO2 mmHg VBG HCO3 mmol/L VBG O2 Saturation % VBG Base Excess mEq/L Sodium 132 L (136-145) mmol/L Potassium 3.9 (3.5-5.1) mmol/L Chloride 103 (98-107) mmol/L Carbon Dioxide 27 (21-32) mmol/L Anion Gap 2 L (3-11) BUN 13 (6-23) mg/dl Creatinine 0.67 (0.6-1.4) mg/dl Est Cr Clr Drug Dosing 95.0 ml/min eGFR 98.59 BUN/Creatinine Ratio 19.4 (10-20) Glucose 127 H (70-99(Fasting)) mg/dl POC Glucose 108 H (70-99) mg/dl Lactate (0.4-2.0) mmol/L Calcium 9.0 (8.6-10.3) mg/dl Magnesium (1.7-2.4) mg/dl Total Bilirubin (0.2-1.0) mg/dl Direct Bilirubin (0-0.2) mg/dl AST (13-39) U/L ALT (7-52) U/L Alkaline Phosphatase (34-104) U/L Troponin I High Sens (0-20) pg/ml B-Natriuretic Peptide (0-100) pg/ml Total Protein (6.0-8.3) gm/dl Albumin (3.4-5.0) gm/dl Procalcitonin (0-0.5) ng/ml Urine Color Yellow Urine Appearance Clear (Clear) Urine pH 6.0 (4.5-7.5) Ur Specific [employer] 1.009 (1.000-1.030) Urine Protein Negative (Negative) Urine Glucose (UA) Negative (Negative) Urine Ketones Negative (Negative) Urine Blood Negative (Negative) Urine Nitrite Negative (Negative) Urine Bilirubin Negative (Negative) Urine Urobilinogen Negative (Negative) Ur Leukocyte Esterase Negative (Negative) Nasal Influ A H1 2009 PCR (NotDetected) Nasal Screen MRSA (PCR) (Negative) Adenovirus (PCR) (NotDetected) B. pertussis DNA (PCR) (NotDetected) B.parapertussis DNA PCR (NotDetected) C. pneumoniae DNA (PCR) (NotDetected) Coronavirus OC43 (PCR) (NotDetected) Coronavirus HKU1 (PCR) (NotDetected) Coronavirus 229E (PCR) (NotDetected) SARS-CoV-2 (PCR) (NotDetected) Coronavirus NL63 (PCR) (NotDetected) Human Metapneumovir PCR (NotDetected) Influenza Type B (PCR) (NotDetected) M. pneumoniae (PCR) (NotDetected) Parainfluenza 1 (PCR) (NotDetected) Parainfluenza 2 (PCR) (NotDetected) Parainfluenza 3 (PCR) (NotDetected) Parainfluenza 4 (PCR) (NotDetected) RSV (PCR) (NotDetected) Entero/Rhino (PCR) (NotDetected) 05/29/24 05/29/24 05/29/24 Range/Units 17:44 16:00 15:31 WBC (4.8-10.8) K/ul RBC (4.70-6.10) M/uL Hgb (14.0-18.0) g/dl Hct (42.0-52.0) % MCV (80.0-100.0) fL MCH (25.0-34.0) pg MCHC (32.0-36.0) g/dL RDW Std Deviation (36.4-46.3) fL RDW Coeff of Matilde (11.5-14.5) % Plt Count (130-400) K/uL MPV (9.4-12.4) fL Immature Gran % (Auto) % Neut % (Auto) % Lymph % (Auto) % [place] % (Auto) % Eos % (Auto) % Baso % (Auto) % Neut # (Auto) (1.40-6.50) K/uL Lymph # (Auto) (1.20-3.40) K/uL [place] # (Auto) (0.11-0.59) K/uL Eos # (Auto) (0.00-0.50) K/uL Baso # (Auto) (0.00-0.20) K/uL Immature Gran # (Auto) (0.01-0.20) K/uL PT (9.0-12.0) Seconds INR (0.9-1.1) APTT (21-31) Seconds PTT Ratio VBG pH 7.44 H (7.36-7.41) VBG pCO2 38 (38-50) mmHg VBG pO2 49 mmHg VBG HCO3 26 mmol/L VBG O2 Saturation 84.1 % VBG Base Excess 1.7 mEq/L Sodium (136-145) mmol/L Potassium (3.5-5.1) mmol/L Chloride (98-107) mmol/L Carbon Dioxide (21-32) mmol/L Anion Gap (3-11) BUN (6-23) mg/dl Creatinine (0.6-1.4) mg/dl Est Cr Clr Drug Dosing ml/min eGFR BUN/Creatinine Ratio (10-20) Glucose (70-99(Fasting)) mg/dl POC Glucose 145 H (70-99) mg/dl Lactate (0.4-2.0) mmol/L Calcium (8.6-10.3) mg/dl Magnesium (1.7-2.4) mg/dl Total Bilirubin (0.2-1.0) mg/dl Direct Bilirubin (0-0.2) mg/dl AST (13-39) U/L ALT (7-52) U/L Alkaline Phosphatase (34-104) U/L Troponin I High Sens (0-20) pg/ml B-Natriuretic Peptide (0-100) pg/ml Total Protein (6.0-8.3) gm/dl Albumin (3.4-5.0) gm/dl Procalcitonin (0-0.5) ng/ml Urine Color Urine Appearance (Clear) Urine pH (4.5-7.5) Ur Specific [employer] (1.000-1.030) Urine Protein (Negative) Urine Glucose (UA) (Negative) Urine Ketones (Negative) Urine Blood (Negative) Urine Nitrite (Negative) Urine Bilirubin (Negative) Urine Urobilinogen (Negative) Ur Leukocyte Esterase (Negative) Nasal Influ A H1 2009 PCR (NotDetected) Nasal Screen MRSA (PCR) Negative (Negative) Adenovirus (PCR) (NotDetected) B. pertussis DNA (PCR) (NotDetected) B.parapertussis DNA PCR (NotDetected) C. pneumoniae DNA (PCR) (NotDetected) Coronavirus OC43 (PCR) (NotDetected) Coronavirus HKU1 (PCR) (NotDetected) Coronavirus 229E (PCR) (NotDetected) SARS-CoV-2 (PCR) (NotDetected) Coronavirus NL63 (PCR) (NotDetected) Human Metapneumovir PCR (NotDetected) Influenza Type B (PCR) (NotDetected) M. pneumoniae (PCR) (NotDetected) Parainfluenza 1 (PCR) (NotDetected) Parainfluenza 2 (PCR) (NotDetected) Parainfluenza 3 (PCR) (NotDetected) Parainfluenza 4 (PCR) (NotDetected) RSV (PCR) (NotDetected) Entero/Rhino (PCR) (NotDetected) 05/29/24 05/29/24 05/29/24 Range/Units 14:25 11:34 11:30 WBC 7.96 (4.8-10.8) K/ul RBC 4.01 L (4.70-6.10) M/uL Hgb 11.9 L (14.0-18.0) g/dl Hct 36.5 L (42.0-52.0) % MCV 91.0 (80.0-100.0) fL MCH 29.7 (25.0-34.0) pg MCHC 32.6 (32.0-36.0) g/dL RDW Std Deviation 52.4 H (36.4-46.3) fL RDW Coeff of Matilde 15.8 H (11.5-14.5) % Plt Count 173 (130-400) K/uL MPV 10.6 (9.4-12.4) fL Immature Gran % (Auto) 0.5 % Neut % (Auto) 69.7 % Lymph % (Auto) 13.8 % [place] % (Auto) 11.8 % Eos % (Auto) 3.6 % Baso % (Auto) 0.6 % Neut # (Auto) 5.54 (1.40-6.50) K/uL Lymph # (Auto) 1.10 L (1.20-3.40) K/uL [place] # (Auto) 0.94 H (0.11-0.59) K/uL Eos # (Auto) 0.29 (0.00-0.50) K/uL Baso # (Auto) 0.05 (0.00-0.20) K/uL Immature Gran # (Auto) 0.04 (0.01-0.20) K/uL PT 12.1 H (9.0-12.0) Seconds INR 1.1 (0.9-1.1) APTT 29 (21-31) Seconds PTT Ratio 1.1 VBG pH 7.47 H 7.43 H (7.36-7.41) VBG pCO2 34 L 43 (38-50) mmHg VBG pO2 91 27 mmHg VBG HCO3 25 29 mmol/L VBG O2 Saturation 97.6 < 60.0 % VBG Base Excess 1.4 3.7 mEq/L Sodium 132 L (136-145) mmol/L Potassium 3.9 (3.5-5.1) mmol/L Chloride 100 (98-107) mmol/L Carbon Dioxide 28 (21-32) mmol/L Anion Gap 4 (3-11) BUN 14 (6-23) mg/dl Creatinine 0.77 (0.6-1.4) mg/dl Est Cr Clr Drug Dosing 91.2 ml/min eGFR 94.53 BUN/Creatinine Ratio 18.2 (10-20) Glucose 103 H (70-99(Fasting)) mg/dl POC Glucose (70-99) mg/dl Lactate 1.1 (0.4-2.0) mmol/L Calcium 9.0 (8.6-10.3) mg/dl Magnesium 1.6 L (1.7-2.4) mg/dl Total Bilirubin 0.4 (0.2-1.0) mg/dl Direct Bilirubin 0.1 (0-0.2) mg/dl AST 25 (13-39) U/L ALT 8 (7-52) U/L Alkaline Phosphatase 67 (34-104) U/L Troponin I High Sens 6.6 (0-20) pg/ml B-Natriuretic Peptide 70 (0-100) pg/ml Total Protein 8.3 (6.0-8.3) gm/dl Albumin 3.6 (3.4-5.0) gm/dl Procalcitonin < 0.02 (0-0.5) ng/ml Urine Color Urine Appearance (Clear) Urine pH (4.5-7.5) Ur Specific [employer] (1.000-1.030) Urine Protein (Negative) Urine Glucose (UA) (Negative) Urine Ketones (Negative) Urine Blood (Negative) Urine Nitrite (Negative) Urine Bilirubin (Negative) Urine Urobilinogen (Negative) Ur Leukocyte Esterase (Negative) Nasal Influ A H1 2008 PCR DETECTED A (NotDetected) Nasal Screen MRSA (PCR) (Negative) Adenovirus (PCR) Not Detected (NotDetected) B. pertussis DNA (PCR) Not Detected (NotDetected) B.parapertussis DNA PCR Not Detected (NotDetected) C. pneumoniae DNA (PCR) Not Detected (NotDetected) Coronavirus OC43 (PCR) Not Detected (NotDetected) Coronavirus HKU1 (PCR) Not Detected (NotDetected) Coronavirus 229E (PCR) Not Detected (NotDetected) SARS-CoV-2 (PCR) Not Detected (NotDetected) Coronavirus NL63 (PCR) Not Detected (NotDetected) Human Metapneumovir PCR Not Detected (NotDetected) Influenza Type B (PCR) Not Detected (NotDetected) M. pneumoniae (PCR) Not Detected (NotDetected) Parainfluenza 1 (PCR) Not Detected (NotDetected) Parainfluenza 2 (PCR) Not Detected (NotDetected) Parainfluenza 3 (PCR) Not Detected (NotDetected) Parainfluenza 4 (PCR) Not Detected (NotDetected) RSV (PCR) Not Detected (NotDetected) Entero/Rhino (PCR) Not Detected (NotDetected) Diagnostic Findings Chest X-Ray 05/29/24 11:19 XR chest 1V portable CLINICAL HISTORY: Sepsis COMPARISON STUDY: 06/26/2022 FINDINGS: There is stable cardiomegaly without pulmonary vascular congestion. There is progressive diffuse interstitial pulmonary opacity. There is interval hazy and patchy opacity throughout the left lung. No pleural effusion or pneumothorax. IMPRESSION: 1. Findings suggestive of progressive interstitial lung disease. 2. Findings consistent with superimposed pneumonia at the left lung. ACT 112: Negative or not required by law. Electronically signed by: Deshaun Nix M.D. 05/29/2024 11:42 AM PG Care Time/CCT Total # of Minutes Spent Total Time Spent with Patient: Total time spent is greater than 50% in coordination of care (as documented) at patient's floor/unit and/or counseling patient: I spent 135 minutes overall addressing this case: 25 min in medical data review/discussion with referring provider(s) and/or preparation for the visit incl OSH data review 15 min in direct interaction with the patient/exam 60 min in Advance Care Planning/Goals of Care discussions as detailed above in note (must be >16min) 15 min in subsequent review and synthesis of assessment and plan 20 min communicating with other providers regarding the patient's case: primary , ccm, ursing, care mgt, pharmacy Advanced Care Planning 91183 Advanced Care Planning 30 Min [id number] Advanced Care Planning Additional 30 [place] [address] IN/OBS CONSULT LVL 5,80M (25 - SIGNIFICANT, SEPARATELY IDENTIFIABLE ) Patient Type New Medical Decision Making High Complexity Diagnoses Dyspnea and respiratory abnormalities R06.00; R06.89 Advanced care planning/counseling discussion Z71.89 Encounter for hospice care discussion Z71. Palliative care by specialist Z51.5 Pulmonary hypertension I27.20 Interstitial lung disease J84.9 IPF (idiopathic pulmonary fibrosis) J84.112 Additional Codes Advanced Care Planning - 59739 Advanced Care Planning 30 Min: 19524 Advanced Care Planning 30 Min ([id number]) Advanced Care Planning - 44956 Advanced Care Planning Additional 30 Min: 43253 Advanced Care Planning Additional 30 Min ([id number]) Time Spent (min) 135 Comment [id number], [id number]
[2024-05-31] MEDS: LORazepam 2 MG/1 ML VIAL IV PRN (11:07)
[2024-05-31] MEDS: MoRPHine BOLUS from BAG IV PRN (11:08)
[2024-05-31] MEDS ORDERED: PROCHLORPERAZINE 5 MG in SYRINGE 4 ML IV PRN (11:41)
[2024-05-31] MEDS ORDERED: PROMETHAZINE HCL 25 MG TAB PO PRN (11:41)
[2024-05-31] MEDS ORDERED: HALOPERIDOL ORAL SOLN 2 MG/ML PO PRN (11:41)
[2024-05-31] MEDS ORDERED: HYOSCYAMINE SULFATE 0.125 MG TAB SL PRN (11:41)
[2024-05-31] MEDS ORDERED: ATROPINE SULFATE 1% OP SOLN 5 ML BTL SL PRN (11:41)
[2024-05-31] MEDS: GLYCOPYRROLATE 0.2 MG/ML VIAL IV PRN (11:47)
--- NOTE | 2024-05-31 15:00 | Death Pronouncement Note ---
Date of Service May 31, 2024 Pronouncement Note Admission Date May 29, 2024 Date and Time of Date of : 05/31/24 Time of : 14:44 Preliminary Cause of (1) Acute on chronic hypoxic respiratory failure: (2) Influenza A: (3) Multifocal pneumonia: Contributing Factors Interstitial lung disease Pulmonary hypertension Additional Data Confirmation of : no pulse, no respirations, no heart sounds and pupils fixed and dilated Pronouncement Performed By: Attending Physician Family: at bedside Attending/PCP notified?: Yes Attending physician: Chadd Kilgore MD Was code activated?: No Autopsy requested?: No Coding Level of Care Code 67181 INP/OBS DISCH >30 MIN Diagnoses Acute on chronic hypoxic respiratory failure J96.21 Influenza A J10.1 Multifocal pneumonia J18.9
--- NOTE | 2024-05-31 15:06 | Discharge Summary ---
Discharge Summary Date of Service May 31, 2024 Principal Dx & Hospital Course #1 = Principal Diagnosis (1) Acute on chronic hypoxic respiratory failure: (2) Influenza A: (3) Multifocal pneumonia: Plan Juanjo Turner is a 73-year-old male who was admitted to [facility] from May 29 to 2024 due to acute respiratory failure with hypoxia from multifocal pneumonia and influenza A on top of underlying interstitial lung disease and pulmonary hypertension. After 2 days of intensive therapy and still requiring high flow oxygen with an FiO2 of 100% he decided to transition to comfort care. He was started on a morphine drip and as he was transitioned off of the high flow nasal cannula to nasal cannula, he shortly thereafter. Notes For Next Care Provider Patient Admission HPI Per Admitting Provider Juanjo Turner is a 73-year-old male with past medical history of GERD, reactive airway disease, hyperlipidemia, ILD who presents to the ER with acute on chronic shortness of breath. Has had a mild fever and increase in his home oxygen from 3 to 7 L. On arrival is found to be flu positive. Is recommended for admission for acute on chronic respiratory failure due to flu and ILD. 1 day increased dyspnea, cough, shotness of breath, feverish, tired. No sputum change. DId not take medicaitons today. Did bring his antifibrotic's with him which were taken by EMS for verification. He reports that he is felt very short of breath in the last 12 to 24 hours, does feel improved on the BiPAP. No chest pain chest pressure at any point Denies leg swelling No nausea vomiting Feels tremulous and hot with sweats Medical History: Reviewed Medications: Reviewed Surgical History: Reviewed Family history: Reviewed Allergies: Reviewed Social History: No tobacco/alcohol use Code Status: DNR. Would be okay with temporary intubation/ventilation. Listed as conditional code Discharge Exam Confirmation of : No pulse, no respirations, no heart sounds and pupils fixed and dilated. Discharge Plan Discharge Items Patient Disposition: Other Date/Time: 05/31/24 14:44 Hospital Stay Data Consultations 05/29/24 12:52 ED Decision to Admit Stat 05/29/24 14:52 Consult Facility Attendant Routine 05/29/24 15:59 Consult Pulmonology Routine 05/31/24 08:41 Consult Palliative Care Routine Total Time Total Time Spent Total Time Spent (In Minutes): 20 Coding Level of Care Code 39285 IN/OBS DISCH 30 MIN/LESS Diagnoses Acute on chronic hypoxic respiratory failure J96.21 Influenza A J10.1 Multifocal pneumonia J18.9
== END 2024-05-31 14:44 | disposition expired | DRG 193 ==
LOC: ED 11:13 → SUATTDRO 14:52 → 1E 14:52